=== PATIENT | female | born 1935 | race Caucasian/White ===

== ENCOUNTER 2023-06-28 14:29 | Outpatient (RCR) | payer MEDICARE, SELFPAY ==
[2023-06-28 14:44] VITALS: BP 118/66; PULSE 61; O2SAT 99; BMI 21.8
--- NOTE | 2023-06-28 15:03 | P.CNHO_ITS ---
Subjective - Subjective Chief complaint: Consult for: Macrocytic anemia. Patient: new to practice Consult date: 06/28/23 Requesting Physician: Alena Fraga. Primary Care Provider: Reva Fraga CNP Medical Summary: DIAGNOSIS: MACROCYTIC ANEMIA. HPI - Consult Narrative Reason for consult: Consult for: Macrocytic anemia. Narrative: Juliet Deras is a 87 year old lady referred by Reva Fraga on account of macrocytic anemia. CBC from 04/24/2023: Hemoglobin 10.3, HCT 34.8, MCV 105. CBC from 01/15/2023: WBC HGB 10.7, HCT 34.2. Iron studies: 78/187/26/Min 16. B12 418. Folate more than 40. PAST MEDICAL HISTORY: 87 year old female with history CAD s/p CAGBx3, htn, unspecified mood disorder admitted for acute CVA s/p tpa administation. #Acute CVA--with left sided weakness and left sided visual loss. -Initial head CT negative with abrupt cut off of proximal right M2 inferior division noted on CTA head/neck. Not interventional candidate with NIHSS score 2 per interventional neurology -Given tpa . Repeat head CT negative. MRI =??an acute cortical infarct within the vascular territory the right middle cerebral artery. Echo show no intracardiac clot. Overall symptoms much improved. Medical management with ASA, Statin and Neurology recommends 4 weeks of Plaveix. PT/OT recommends acute inpatient rehab. LDL as at goal. Overall symptoms have improved vision is better and weakness on left nearly gone #HTN--She takes Metoprolol 100 mg twice daily and HR has been between 50 to 80, and will therefore lower metoprolol to 50 bid and add Norvasc 2.5 daily #HLD -LDL at goal, continue simvastatin #Unspecified mood disorder-continue home meds (Remron, Sertraline) FAMILY HISTORY: She is an only child. No known blood disorder nor oncological problems in the family. 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 She is . She has 3 children. Denies smoking. Denies alcohol. ROS: Lately she has been fatigued. She uses the walker more for a balance. She is currently undergoing physical therapy. Rely no fever chills or night sweats. She does feel cold. Her appetite is excellent. She eats very healthy fish chicken vegetables and fruits. Denies weight loss. No headache no dizziness. No chest pain or trouble breathing. Denies any abdominal pain nausea vomiting heartburn indigestion. Bowels are working with. She has constipation. She takes Metamucil. She gets up at night the almost 4 times to go to the bathroom. She has right knee pain. She had injections in the past. 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 She is unable to walk. She has shakes. She has anxiety. Sometimes that makes her short of breath. She denies any skin rashes or pruritus. Review of Systems - Constitutional Reports system reviewed and no additional complaints, except as documented, Reports chills, Reports fatigue, Reports lack of energy, Reports malaise, Denies anorexia, Denies body ache(s), Denies fever(s), Denies night sweats, Denies poor appetite, Denies weight loss - Eyes Reports system reviewed and no additional complaints, except as documented - ENT Reports system reviewed and no additional complaints, except as documented - Cardiovascular Reports system reviewed and no additional complaints, except as documented - Respiratory Reports no additional respiratory complaints - Gastrointestinal Reports system reviewed and no additional complaints, except as documented - Genitourinary Reports no additional female genitourinary complaints - Musculoskeletal Reports system reviewed and no additional complaints, except as documented - Integumentary/Breasts Skin/Breast: Reports no additional skin complaints - Neurologic Reports system reviewed and no additional complaints, except as documented - Psychiatric Reports system reviewed and no additional complaints, except as documented - Endocrine Reports no additional endocrine complaints - Hematologic/Lymphatic Reports system reviewed and no additional complaints, except as documented - Allergic/Immunologic Reports system reviewed and no additional complaints, except as documented Oncology Screenings - ECOG Performance Status ECOG Performance Status: 2 [facility] Medical History: Medical History (Last Updated 06/28/23 @ 14:42 by Navya Ward) Coronary artery disease High cholesterol Hypertension Hypomagnesemia Osteopenia Functional capacity: wheelchair bound Patient : No Surgical History: Surgical History (Last Reviewed 06/28/23 @ 14:41 by Navya Ward) S/P CABG x 3 Social History: Social History (Last Updated 06/28/23 @ 14:42 by Navya Ward) Living Situation History: Household Members: Family Alcohol History Details: 1. How often do you have a drink containing alcohol?: a. Never Tobacco History: Patient Tobacco Use Status: Never used Tobacco Substance Use History: Use of substances other than those prescribed or required for medical reasons : No Domestic Abuse History: Do you feel safe in your current relationship?: Yes Homicidal Assessment: Do you have thoughts of harming others: None Do you have a plan to hurt others: No Plan Nutrition Assessment: Patient : No Occupation Assessmet: service: No Current occupational status: retired Home Medications and Allergies Home Medications Medication Instructions Recorded Confirmed Type aspirin 81 mg chewable tablet 81 mg PO DAILY 01/30/23 06/28/23 History bisacodyl 5 mg tablet 5 mg PO DAILY PRN Constipation 01/30/23 06/28/23 History mirtazapine 7.5 mg tablet 7.5 mg PO BID 01/30/23 06/28/23 History multivitamin 1 tab PO DAILY@1200 01/30/23 06/28/23 History sertraline 50 mg tablet 50 mg PO BID 01/30/23 01/30/23 History simvastatin 20 mg tablet 20 mg PO BEDTIME 01/30/23 06/28/23 History Allergies Allergy/AdvReac Type Severity Reaction Status Date / Time No Known Allergies Allergy Unverified 06/28/23 14:42 Physical Exam Vital signs: Vital Signs Pulse 61 06/28/23 14:44 BP 118/66 06/28/23 14:44 Pulse Ox 99 06/28/23 14:44 O2 Del Method Room Air 06/28/23 14:44 Intake & Output 06/27/23 06/28/23 06/28/23 18:59 06:59 18:59 Other: Weight 49 kg [place] Weight in Grams [id number] Weight 49 kg - Constitutional Present: mild distress - Routine HEENT Exam Head: Present: normal inspection, normocephalic Eye: Present: normal appearance ENT: Present: mucous membranes moist - Routine Neck Exam Present: supple - Routine Respiratory Exam Present: CTAB - Routine Cardiovascular Exam Cardiovascular: Present: RRR, S1, S2 - Routine Abdominal Exam Present: soft, nontender - Routine Extremities Exam Present: nontender - Routine Skin Exam Present: intact, normal turgor - Routine Neurological Exam Present: alert, oriented X3 - Detailed Neurological Exam: Coma Scale Eye Opening: Spontaneous (4) Verbal Response: Oriented (5) Motor Response: Obeys commands (6) [place] Coma Scale Total: 15 - Routine Psychiatric Exam Present: anxious Hem/Onc Consult Result - Labs CBC & Chem 7: 06/28/23 15:11 06/28/23 15:11 Assessment and Plan Patient Active problem list reviewed?: Yes (1) Macrocytic anemia Status: Acute Assessment and plan: This is a pleasant 87-year-old lady with a history of macrocytic anemia. CBC from 04/24/2023: Hemoglobin 10.3, HCT 34.8, MCV 105. CBC from 01/15/2023: WBC .0, HGB 10.7, HCT 34.2. PLT 149. Iron studies: 78/187/26/116. B12 418. Folate > 40. She actually had a bone marrow exam done 12/19/2007 which revealed: Active try linear hematopoiesis, slight increase in plasma cells and moderately decreased iron stores. Reticulin fibers are focally slightly increased. DIFFERENTIAL DIAGNOSIS: 1. Myelo infiltrative disorder: This is likely specially at her age. MDS versus multiple myeloma versus lymphoma. 2. B12/folate deficiency: Her B12 level was 418. Folate >40. 3. HYPOTHYROIDISM: That can explain the fatigue and macrocytosis. 4. ACD: Is a likely possibility. 5. HEMOLYTIC ANEMIA: Is in the differential. PLAN: I will proceed with further evaluation. Check CBC with manual diff.: WBC 5, HGB 10.7, PLT 173. Recheck B12 and folate: 461, >20. Check retic count: 1.7, Hapto 155, LDH: 180. Check LDH 180, and SIEP: pnd. I discussed the option of bone marrow exam however the patient is not too keen on that. For now will continue to monitor her blood count. If it drops can consider Procrit therapy for MDS. She will return in a couple of months for a follow-up visit. All her and her son's questions were answered to their satisfaction. Thank you, Cc: Reva Fraga. - Time Spent With Patient Time Spent with Patient (in minutes): 30
[2023-06-28 15:19] LABS: Baso%MD 0.4 %; Eos%MD 1.6 %; Hemoglobin 10.7 g/dl (12.0-16.0); IG%MD 0.6 %; Immature Retic Fraction 12.7 % (3.0-15.9); Lymph%MD 19.3 %; Mean Corpuscular HGB Conc 33.4 g/dl (31.0-35.0); Mean Corpuscular Hemoglobin 34.6 pg (27.0-33.0); Mean Corpuscular Volume 103.6 fL (80.0-98.0); Mean Platelet Volume 10.2 fL (9.4-12.3); Mono%MD 12.2 %; Neut%MD 65.9 %; Platelet Count 173 X10*3/uL (160-400); Red Blood Count 3.09 X10*6/uL (4.20-5.50); Red Cell Distribution Width 14.1 % (11.0-16.0); Retic HGB Equivalent 38.3 pg (30.0-35.0); Reticulocyte Percent 1.7 % (0.5-1.8); Reticulocytes Absolute 0.052 X10*6/uL (0.026-0.095)
[2023-06-28 15:39] LABS: Alanine Aminotransferase 11 U/L (0-31); Albumin Level 4.2 g/dL (3.5-5.0); Alkaline Phosphatase 59 U/L (39-117); Anion Gap 15 (12-20); Aspartate Amino Transferase 19 U/L (5-31); Bilirubin Total 0.3 mg/dL (0.0-1.0); Blood Urea Nitrogen 23 mg/dL (9-16); Carbon Dioxide 28 mmol/L (22-29); Chloride 103 mmol/L (96-108); Creatinine Clr Calc Pharmacy 34.9; Estimated Glomerular Filt Rate > 60; Glucose Random 108 mg/dL (60-115); Lactate Dehydrogenase 180 U/L (122-220); Sodium 142 mmol/L (135-145)
[2023-06-28 15:53] LABS: Ferritin 72 ng/mL (10-250)
[2023-06-28 15:57] LABS: Band Neutrophils Percent 0 % (3-5); Basophils Abs Manual 0.1 X10*3/uL (0.0-0.2); Basophils Percent Manual 1 % (0-2); Lymphocytes Absolute Manual 0.9 X10*3/uL (1.2-4.9); Lymphocytes Percent Manual 17 % (20-40); Monocytes Absolute Manual 0.6 X10*3/uL (0.1-1.2); Monocytes Percent Manual 11 % (2-11); Neutrophils Absolute Manual 3.6 X10*3/uL (2.0-8.3); Neutrophils Percent Manual 71 % (45-73)
[2023-06-28 16:07] LABS: Platelet Estimate NORMAL (NORMAL); Platelet Morphology Comment NORMAL; RBC Morphology NORMAL
[2023-06-28 16:08] LABS: Folate > 20.0 ng/mL (> or = 4.0); Vitamin B12 461 pg/mL (200-900)
[2023-06-29 01:49] LABS: Haptoglobin 155 MG/DL ((30-200))
[2023-07-03 15:03] LABS: IgA 296 mg/dL (70-320); IgG 886 mg/dL (600-1540); IgM 105 mg/dL (50-300)
== END 2023-08-18 | disposition home or self-care (01) ==
LOC: HO.ONC 14:29
PROVIDERS: PCP Nurse Practitioner Family; Visit Provider Internal Medicine Medical Oncology
DX: D53.9 Nutritional anemia, unspecified (principal)
CPT/HCPCS: 36415; 80053; 82607; 82728; 82746; 82784; 83010; 83615; 85007; 85027; 85045; 86334; 99214

== ENCOUNTER → 2023-06-28 14:29 | Outpatient (BNV) | payer MEDICARE, SELFPAY | PROVIDERS: PCP Nurse Practitioner Family; Visit Provider Internal Medicine Medical Oncology | DX: D64.9 Anemia, unspecified (principal) | CPT/HCPCS: 99214 ==

== ENCOUNTER 2023-08-08 14:01 | Inpatient (IN) | payer MEDICARE, SELFPAY ==
--- NOTE | ~2023-08-08 | XR_ITS ---
EXAMINATION: XR CHEST CLINICAL INFORMATION: NG tube placement COMPARISON: None available. TECHNIQUE: Frontal view of the chest was obtained. FINDINGS: The lungs are slightly hyperinflated with haziness in both lung bases likely atelectasis/effusion combination. Infiltrate is not excluded. Heart size and perivascular is normal. There is new enteric tube with the tip of the tube within the hiatal hernia adjacent to the myocardium. There are median sternotomy sutures and mediastinal grady from previous CABG. No gross bony abnormality seen. Incidental note is made of dilated small bowel loops in the upper abdomen. XR/XR chest 1V IMPRESSION: 1. New enteric tube tip is within the hiatal hernia adjacent to the myocardium. 2. Bibasilar haziness likely atelectasis/effusion combination. Infiltrate is not excluded. 3. Incidental note is made of dilated small bowel loops in the upper abdomen.
--- NOTE | ~2023-08-08 | XR_ITS ---
EXAMINATION: XR CHEST CLINICAL INFORMATION: Nasogastric tube placement COMPARISON: Previous chest x-ray from earlier the same day TECHNIQUE: Frontal view of the chest was obtained. FINDINGS: Nasogastric tube tip projects over stomach. Cardiac silhouette is slightly enlarged. Median sternotomy wires. Surgical clips project over the right lung base/inferior hilum. Lungs are clear. No pleural effusion or pneumothorax. Degenerative changes of the spine and shoulders. XR/XR chest 1V IMPRESSION: Nasogastric tube tip projects over stomach.
--- NOTE | ~2023-08-08 | XR_ITS ---
EXAMINATION: XR ABDOMEN KUB CLINICAL INDICATION: Intestinal obstruction COMPARISON: 08/09/2023 TECHNIQUE: AP view of the abdomen. FINDINGS: NG tube tip overlying the spine. Proximal port overlying the GE junction. Similar bowel pattern to previous. Some dilatation of small bowel is noted. XR/XR KUB IMPRESSION: Similar bowel pattern to previous. Some dilated small bowel is seen here. NG tube as described. The proximal port may be at the level the GE junction/distal esophagus
--- NOTE | ~2023-08-08 | CT_ITS ---
EXAMINATION: CT ABDOMEN AND PELVIS WITH CONTRAST CLINICAL INFORMATION: Pain COMPARISON: None available. TECHNIQUE: Multidetector volumetric images were obtained from the superior aspect of the liver through the pubic symphysis following administration 85 mL of Omnipaque 350 intravenous contrast. Sagittal and coronal reformatted images were obtained on the technologist's workstation. Oral contrast: Yes This CT examination was performed using dose optimization techniques as appropriate, variously including the following: *Automated exposure control *Adjustment of mA and/or kV according to patient size (this includes techniques or standardized protocols for targeted exams where dose is matched to indication/reason for exam; i.e. extremities or head) *Use of iterative reconstruction technique DLP: 408 mGy-cm FINDINGS: LUNG BASES: The visualized lung bases are clear. Aortic valve coronary artery calcification. LIVER, GALLBLADDER, AND BILIARY TREE: The liver is normal in size, shape, and attenuation. No focal hepatic lesion or biliary ductal dilatation is present. Gallstones in the gallbladder. The gallbladder is otherwise unremarkable. PANCREAS: Unremarkable. SPLEEN: Too small low-attenuation splenic lesions probably representing small cyst and hemangioma. ADRENAL GLANDS: Unremarkable. KIDNEYS AND URETERS: The kidneys are normal in size, shape, and attenuation. No hydronephrosis, hydroureter, or calculi seen. Bilateral renal cysts. No imaging follow-up recommended. No perinephric stranding. BLADDER: Not optimally distended. Difficult to exclude mild diffuse bladder wall thickening GASTROINTESTINAL TRACT: The small bowel is dilated and fluid-filled. There are abnormal loops of distal small bowel seen in the right lower quadrant with wall thickening and wall edema, for example 56 series 3. There is a small amount of ascites. There is severe diverticular disease of the colon. No evidence of diverticulitis. No free air. The stomach is slightly distended and filled. Appendix not seen. ABDOMINAL WALL: Small right groin hernia containing fluid LYMPH NODES: Normal. VASCULAR: Atherosclerotic disease. PELVIC VISCERA: Unremarkable. OSSEOUS STRUCTURES: Scoliosis and degenerative changes of the spine and hip joints. CT/CT abdomen pelvis w IV con IMPRESSION: Abnormal small bowel. Question enteritis versus distal small bowel obstruction. Small amount of ascites. Diverticular disease of the colon. No evidence of diverticulitis. Gallstones. Small right groin hernia containing fluid. Question mild diffuse bladder wall thickening. Correlate for urinary tract infection/cystitis. Fleischner guidelines were followed.
--- NOTE | ~2023-08-08 | XR_ITS ---
EXAMINATION: XR CHEST CLINICAL INFORMATION: Nasogastric tube placement COMPARISON: Previous abdominal and pelvic CT from earlier the same day TECHNIQUE: Frontal view of the chest was obtained. FINDINGS: There is a nasogastric tube with tip projecting over the right lung base and not in the esophagus or stomach. Subsequent chest x-ray demonstrates nasogastric tube position tip projecting over the stomach. Surgical clips project over the right pulmonary hilum/right lung base. The cardiac silhouette is upper normal in size. There are median sternotomy wires. The lungs are clear. No pleural effusion or pneumothorax. No acute bone abnormality. XR/XR chest 1V IMPRESSION: Abnormally positioned nasogastric tube with tip projecting over the right lung base.
--- NOTE | ~2023-08-08 | XR_ITS ---
EXAMINATION: XR ABDOMEN KUB CLINICAL INFORMATION: Question SBO. COMPARISON: CT abdomen of August 08, 2023. TECHNIQUE: AP view of the abdomen. FINDINGS: Enteric catheter is seen traversing to the stomach with the sideport at the gastroesophageal junction region. There is gaseous distention of the stomach. Stool and gas are seen within portions of a nondilated colon. There appear to be a few distended but not dilated loops of small bowel about the mid right abdomen. Columnization of the left ureter is present along its distal half. The urinary bladder has a trabeculated wall with contrast within it. A tube is seen overlying the rectum and may represent a rectal tube. There is degenerative change of the right hip. There is mild scoliosis of the lower lumbar spine convex left. There is disc space narrowing and facet arthropathy seen at L4 through S1. Prominent vascular calcifications are noted. XR/XR KUB IMPRESSION: No specific signs to suggest small bowel obstruction. Stool and gas seen within nondilated colon. Trabeculated urinary bladder wall with columnization of the distal left ureter.
--- NOTE | ~2023-08-08 | CT_ITS ---
EXAMINATION: CT ABDOMEN AND PELVIS WITH CONTRAST CLINICAL INFORMATION: Small bowel obstruction. Follow-up. COMPARISON: Previous CT of the abdomen and pelvis 08/08/2023 and KUB most recent 08/10/2023 TECHNIQUE: Multidetector volumetric images were obtained from the superior aspect of the liver through the pubic symphysis following administration 85 mL of Omnipaque 350 intravenous contrast. Sagittal and coronal reformatted images were obtained on the technologist's workstation. Oral contrast: Yes This CT examination was performed using dose optimization techniques as appropriate, variously including the following: *Automated exposure control *Adjustment of mA and/or kV according to patient size (this includes techniques or standardized protocols for targeted exams where dose is matched to indication/reason for exam; i.e. extremities or head) *Use of iterative reconstruction technique DLP: 407 mGy-cm FINDINGS: LUNG BASES: New bilateral pleural effusions and lower lobe compressive atelectasis, right greater than left. Enlarged heart. Coronary artery and aortic valve calcification. Median sternotomy wires. LIVER, GALLBLADDER, AND BILIARY TREE: The liver is low in attenuation suggestive of mild fatty infiltration. No focal liver lesion or biliary duct dilatation. Upper normal-size gallbladder and gallstones. PANCREAS: Unremarkable. SPLEEN: Stable small low-attenuation lesions probably representing a small geode. ADRENAL GLANDS: Unremarkable. KIDNEYS AND URETERS: The kidneys are normal in size, shape, and attenuation. No hydronephrosis, hydroureter, or calculi seen. Right renal cyst. No imaging follow-up recommended No perinephric stranding. BLADDER: Unremarkable. GASTROINTESTINAL TRACT: Very dilated fluid-filled loops of small bowel. Small bowel loops measure up to 4 cm in diameter or dilated on prior exams. The distal small bowel does not appear dilated. Definite transition zone is not seen. Question transition zone right lower quadrant sagittal reconstructed image 29 series 3. Appearance is worrisome small bowel obstruction. There is a small amount of ascites. Severe diverticulosis of the distal colon. No evidence of diverticulitis. Small esophageal hernia. The appendix ABDOMINAL WALL: Small right groin hernia containing fluid. LYMPH NODES: Normal. VASCULAR: Atherosclerotic disease. No aneurysm PELVIC VISCERA: Unremarkable. OSSEOUS STRUCTURES: Degenerative changes of the spine and scoliosis. Degenerative changes at the hip joints, right greater than left. CT/CT abdomen pelvis w IV con IMPRESSION: Dilated fluid-filled small bowel more dilated than July 2023 worrisome for small bowel obstruction. Question transition point the right lower quadrant. Distal small bowel does not appear dilated. New small amount of ascites. Small esophageal hernia. Gallstones and upper normal-size gallbladder. Bilateral pleural effusions and adjacent lower lobe compressive atelectasis. Fleischner guidelines were followed. Findings will be communicated by the [facility] chief crew scheduler
--- NOTE | 2023-08-08 14:22 | ECG_ITS ---
Test Reason : abdominal pain Blood Pressure : / mmHG Vent. Rate : 063 BPM Atrial Rate : 063 BPM P-R Int : 168 ms QRS Dur : 086 ms QT Int : 438 ms P-R-T Axes : 079 038 069 degrees QTc Int : 448 ms Normal sinus rhythm Normal ECG When compared with ECG of 30-JAN-2023 00:27, No significant change was found Referred By: Gurdeep Gentile Electronically Signed By:NOMAN CARRASCO MD
--- NOTE | 2023-08-08 14:23 | ED.GENADULT ---
HPI - General Adult General Chief complaint: Abdominal Pain Stated complaint: ABD PAIN Time Seen by Provider: 08/08/23 14:14 History of Present Illness HPI narrative: The patient is an 87-year-old woman lives at home with her son. She is here for abdominal pain it started abruptly at 10:00 this morning. She had felt fine earlier in the morning. She had had breakfast earlier in the morning. She has had pain started abruptly and was quite generalized. It was quite uncomfortable. She has had no associated nausea. No definite fever. She says that the pain feels like pain she experienced several decades ago when she had an ectopic . She says she had surgery for her ectopic several decades ago but has had no other abdominal surgeries. She has had triple bypass surgery. She does not feel the pain lateralizes to either side. 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 She was seen here at this hospital and was treated with tPA. She had significant improvement in her symptoms. She was started on clopidogrel at discharge. Related Data Home Medications Medication Instructions Recorded Confirmed aspirin 81 mg chewable tablet 81 mg PO DAILY 01/30/23 06/28/23 bisacodyl 5 mg tablet 5 mg PO DAILY PRN Constipation 01/30/23 06/28/23 mirtazapine 7.5 mg tablet 7.5 mg PO BID 01/30/23 08/08/23 multivitamin 1 tab PO DAILY@1200 01/30/23 06/28/23 sertraline 50 mg tablet 50 mg PO BID 01/30/23 08/08/23 simvastatin 20 mg tablet 20 mg PO BEDTIME 01/30/23 08/08/23 amlodipine 2.5 mg tablet (Norvasc) 5 mg PO DAILY 08/08/23 08/08/23 Previous Rx's Medication Instructions Recorded clopidogrel 75 mg tablet (Plavix) 75 mg PO DAILY #30 tabs 02/02/23 metoprolol tartrate 50 mg tablet 50 mg PO BID #60 tabs 02/02/23 Allergies Allergy/AdvReac Type Severity Reaction Status Date / Time No Known Allergies Allergy Unverified 06/28/23 14:42 Review of Systems Review of Systems: Yes all other systems are reviewed and are negative FOR[facility]LY [facility] Past Medical History Medical History High cholesterol Osteopenia Hypomagnesemia Coronary artery disease Hypertension Surgical History S/P CABG x 3 Social History Social History Household Members: Family Alcohol intake: never Patient Tobacco Use Status: Never used Tobacco Smoked in Last 30 Days: No Use of substances other than those prescribed or required for medical reasons: No Advance Directives: Yes Advance Directives on File: Yes Advance Directives Date on File: 02/06/23 service: No Current occupational status: retired Physical Exam ED Vital Signs: Vital Signs - 24 hr 08/08/23 14:42 08/08/23 15:04 08/08/23 16:00 Temperature Pulse Rate 64 65 68 Respiratory Rate 20 16 18 Blood Pressure 186/93 H 183/83 H 167/86 H Pulse Oximetry 99 98 98 Oxygen Delivery Method Room Air Room Air Room Air 08/08/23 19:18 Temperature 98.0 F Pulse Rate 67 Respiratory Rate 18 Blood Pressure 176/87 H Pulse Oximetry 94 Oxygen Delivery Method Room Air BMI result Body Mass Index 20.5 Const Other: Patient is awake, alert, pleasant, cooperative. She does not appear in obvious distress. Mental status is clear. HENMT Other: Appearance of the face is unremarkable. Mucous membranes are moist. Eyes Other: Pupils are round equal, conjunctivae are clear Neck Other: No JVD Cardio Other: Regular rate and rhythm, 4/6 murmur GI Other: The patient is diffusely tender, no clear focal tenderness. Medications Administered Discontinued Medications Generic Name Dose Route Start Last Admin Trade Name Maria Guadalupe PRN Reason Stop Dose Admin Iohexol 100 ml 08/08/23 19:01 08/08/23 19:01 Iohexol 350 Mg/Ml 100 Ml Infus..Btl IV 08/08/23 19:02 85 ml ONCE ONE Administration Lidocaine HCl 10 ml 08/08/23 19:07 08/08/23 20:04 Lidocaine Hcl 2 % Urojet 10 Ml Jel.Pf.Magda TOPICAL 08/08/23 19:08 10 ml ONCE ONE Administration Lidocaine HCl 10 ml 08/08/23 20:37 08/08/23 20:44 Lidocaine Hcl 2 % Urojet 10 Ml Jel.Pf.Magda TOPICAL 11/29/23 20:38 10 ml ONCE ONE Administration Morphine Sulfate 2 mg 08/08/23 14:40 08/08/23 15:12 Morphine Sulfate 2 Mg/Ml Cartridge IVPUSH 08/08/23 14:41 2 mg ONCE ONE Administration Protocol Morphine Sulfate 2 mg 08/08/23 17:25 08/08/23 17:39 Morphine Sulfate 2 Mg/Ml Cartridge IVPUSH 08/08/23 17:26 2 mg ONCE ONE Administration Protocol Morphine Sulfate 4 mg 08/08/23 19:07 08/08/23 20:04 Morphine Sulfate 4 Mg/Ml Cartridge IVPUSH 08/08/23 19:08 4 mg ONCE ONE Administration Protocol Medical Decision Making Medical Decision Making MDM Narrative: 87-year-old woman on clopidogrel presents with abrupt onset abdominal pain starting around 10:00 this morning. Abdominal exam shows diffuse abdominal tenderness without clear localization. EKG is unremarkable. Labs were done. Her labs are unremarkable but her CT scan was delayed by 2 rounds of hemolyzed chemistry labs. Ultimately she had a CT of the abdomen and pelvis that showed fluid-filled loops of small bowel with air-fluid levels. The radiology impression was ?abnormal small bowel. Question enteritis versus distal small bowel obstruction. ? My impression was that the patient had a small bowel obstruction. I ordered an NG tube. And initially in G-tube was placed with a subsequent chest x-ray that did not show appropriate tube placement. This was immediately identified by the x-ray techs. I pulled the NG tube. I then placed a 16 [place] NG tube in the patient's left nostril myself with an x-ray that showed appropriate placement of the NG tube and good drainage of gastric contents. I discussed the case with the on-call surgeon Dr. Diego Plaza who recommended that the patient has small-bowel obstruction be initially treated with conservative measures including NG tube decompression and IV fluids. He recommended admission to the hospitalist service. I contacted the hospitalist and the patient was admitted. The patient seemed to be feeling much better after she had had some evacuation of gastric contents via the NG tube. I called patient's son to update him on the patient's condition. He spoke to his mother on the phone. Lab Data 08/08/23 14:57 08/08/23 18:05 Labs: Lab Results 08/08/23 08/08/23 08/08/23 Range/Units 14:57 15:01 15:06 WBC 6.2 (4.8-10.8) X10*3/uL RBC 3.62 L (4.20-5.50) X10*6/uL Hgb 12.1 (12.0-16.0) g/dl Hct 36.7 L (37.0-47.0) % MCV 101.4 H (80.0-98.0) fL MCH 33.4 H (27.0-33.0) pg MCHC 33.0 (31.0-35.0) g/dl RDW 13.8 (11.0-16.0) % Plt Count 211 (160-400) X10*3/uL MPV 9.9 (9.4-12.3) fL Immature Gran % (Auto) 0.3 (0.0-0.4) % Neut % (Auto) 72.3 (45-73) % Lymph % (Auto) 17.1 L (20-40) % [place] % (Auto) 8.7 (2-11) % Eos % (Auto) 1.1 (0-4) % Baso % (Auto) 0.5 (0-2) % Lymph # (Auto) 1.1 L (1.2-4.9) X10*3/uL [place] # (Auto) 0.5 (0.1-1.2) X10*3/uL Eos # (Auto) 0.1 (0.0-0.4) X10*3/uL Baso # (Auto) 0.0 (0.0-0.2) X10*3/uL Abs Immat Gran (auto) 0.02 (0.00-0.03) X10*3/uL Absolute Neuts (auto) 4.5 (2.0-8.3) x10*3/uL Absolute Nucleated RBC 0.000 (0.0-0.012) X10*3/uL Nucleated RBC % (auto) 0.0 (0.0-0.2) /100WBC VBG pH 7.48 H (7.32-7.43) VBG pCO2 48 mmHg VBG pO2 42 mmHg VBG HCO3 36 H (22-26) mmol/L VBG O2 Saturation 68.0 % VBG Base Excess 11.3 mmol/L Sodium (135-145) mmol/L Potassium (3.3-5.1) mmol/L Chloride (96-108) mmol/L Carbon Dioxide (22-29) mmol/L Anion Gap (12-20) BUN (9-16) mg/dL Creatinine (0.5-1.4) mg/dL Estim Creat Clear Calc Estimated GFR Random Glucose (60-115) mg/dL Lactic Acid 0.9 (0.5-2.0) mmol/L Calcium (8.4-10.2) mg/dL Magnesium (1.6-2.6) mg/dL Total Bilirubin (0.0-1.0) mg/dL Direct Bilirubin (0.0-0.5) mg/dL AST (5-31) U/L ALT (0-31) U/L Alkaline Phosphatase (39-117) U/L Troponin I High Sens 5.9 D (<3.5-17.0) ng/L C-Reactive Protein (< or = 0.50) mg/dL Total Protein (6.5-8.0) g/dL Albumin (3.5-5.0) g/dL Lipase (8-78) U/L Urine Color Yellow Urine Appearance Clear Urine pH 8.5 (5.0-9.0) Ur Specific [place] 1.015 (1.005-1.025) Urine Protein Negative (Neg-Trace) mg/dL Urine Glucose (UA) Negative (Negative) mg/dL Urine Ketones Negative (Negative) mg/dL Urine Blood Negative (Negative) Urine Nitrite Negative (Negative) Ur Leukocyte Esterase Negative (Negative) 08/08/23 Range/Units 18:05 WBC (4.8-10.8) X10*3/uL RBC (4.20-5.50) X10*6/uL Hgb (12.0-16.0) g/dl Hct (37.0-47.0) % MCV (80.0-98.0) fL MCH (27.0-33.0) pg MCHC (31.0-35.0) g/dl RDW (11.0-16.0) % Plt Count (160-400) X10*3/uL MPV (9.4-12.3) fL Immature Gran % (Auto) (0.0-0.4) % Neut % (Auto) (45-73) % Lymph % (Auto) (20-40) % [place] % (Auto) (2-11) % Eos % (Auto) (0-4) % Baso % (Auto) (0-2) % Lymph # (Auto) (1.2-4.9) X10*3/uL [place] # (Auto) (0.1-1.2) X10*3/uL Eos # (Auto) (0.0-0.4) X10*3/uL Baso # (Auto) (0.0-0.2) X10*3/uL Abs Immat Gran (auto) (0.00-0.03) X10*3/uL Absolute Neuts (auto) (2.0-8.3) x10*3/uL Absolute Nucleated RBC (0.0-0.012) X10*3/uL Nucleated RBC % (auto) (0.0-0.2) /100WBC VBG pH (7.32-7.43) VBG pCO2 mmHg VBG pO2 mmHg VBG HCO3 (22-26) mmol/L VBG O2 Saturation % VBG Base Excess mmol/L Sodium 141 (135-145) mmol/L Potassium 4.5 (3.3-5.1) mmol/L Chloride 100 (96-108) mmol/L Carbon Dioxide 33 H (22-29) mmol/L Anion Gap 13 (12-20) BUN 19 H (9-16) mg/dL Creatinine 0.80 (0.5-1.4) mg/dL Estim Creat Clear Calc 40.2 Estimated GFR > 60 Random Glucose 103 (60-115) mg/dL Lactic Acid (0.5-2.0) mmol/L Calcium 10.3 H (8.4-10.2) mg/dL Magnesium 2.2 (1.6-2.6) mg/dL Total Bilirubin 0.5 (0.0-1.0) mg/dL Direct Bilirubin 0.1 (0.0-0.5) mg/dL AST 26 (5-31) U/L ALT 14 (0-31) U/L Alkaline Phosphatase 65 (39-117) U/L Troponin I High Sens 8.3 (<3.5-17.0) ng/L C-Reactive Protein < 0.04 (< or = 0.50) mg/dL Total Protein 7.5 (6.5-8.0) g/dL Albumin 4.1 (3.5-5.0) g/dL Lipase 24 (8-78) U/L Urine Color Urine Appearance Urine pH (5.0-9.0) Ur Specific [place] (1.005-1.025) Urine Protein (Neg-Trace) mg/dL Urine Glucose (UA) (Negative) mg/dL Urine Ketones (Negative) mg/dL Urine Blood (Negative) Urine Nitrite (Negative) Ur Leukocyte Esterase (Negative) Independent Interpretation I performed an independent interpretation of an: EKG Interpretation: EKG at 15:02 shows normal sinus rhythm at 63 beats per minute. Unremarkable EKG. Discharge Plan Discharge Clinical Impression: SBO (small bowel obstruction) Patient Disposition: Admitted As Inpatient
[2023-08-08 14:37] VITALS: BP 197/98; PULSE 80; O2SAT 98
[2023-08-08 14:42] VITALS: BP 186/93; PULSE 64; RESP 20; O2SAT 99; BMI 20.5
[2023-08-08 15:04] VITALS: BP 183/83; PULSE 65; RESP 16; O2SAT 98
[2023-08-08 15:07] LABS: MANUAL DIFF FLAG NO
[2023-08-08 15:11] LABS: Appearance Urine Clear; Color Urine Yellow; Glucose Urine UA Negative (Negative); Leukocyte Esterase Urine Negative (Negative); Nitrite Urine Negative (Negative); PH 8.5 (5.0-9.0); Specific Gravity - Urine 1.015 (1.005-1.025); Urine Blood Negative (Negative); Urine Ketones Negative (Negative); Urine Protein Negative (Neg-Trace)
[2023-08-08 15:11] LABS: VBG Base Excess 11.3 mmol/L; VBG HCO3 36 mmol/L (22-26); VBG pCO2 48 mmHg; VBG pH 7.48 (7.32-7.43); VBG pO2 42 mmHg
[2023-08-08] MEDS: Morphine Sulfate 2 MG/ML CARTRIDGE IVPUSH ×2 (15:12→17:39)
[2023-08-08 15:14] LABS: Venous Blood Gas Refer to POC result
[2023-08-08 15:16] LABS: Basophils Percent Auto 0.5 % (0-2); Eosinophils Absolute Auto 0.1 X10*3/uL (0.0-0.4); Eosinophils Percent Auto 1.1 % (0-4); Hematocrit 36.7 % (37.0-47.0); Hemoglobin 12.1 g/dl (12.0-16.0); Imm Gran Abs Auto 0.02 X10*3/uL (0.00-0.03); Imm Gran Pct Auto 0.3 % (0.0-0.4); Lymphocytes Absolute Auto 1.1 X10*3/uL (1.2-4.9); Lymphocytes Percent Auto 17.1 % (20-40); Mean Corpuscular Hemoglobin 33.4 pg (27.0-33.0); Mean Corpuscular Volume 101.4 fL (80.0-98.0); Mean Platelet Volume 9.9 fL (9.4-12.3); Monocytes Absolute Auto 0.5 X10*3/uL (0.1-1.2); Monocytes Percent Auto 8.7 % (2-11); Neutrophils Absolute Auto 4.5 x10*3/uL (2.0-8.3); Neutrophils Percent Auto 72.3 % (45-73); Platelet Count 211 X10*3/uL (160-400); Red Blood Count 3.62 X10*6/uL (4.20-5.50); Red Cell Distribution Width 13.8 % (11.0-16.0); White Blood Count 6.2 X10*3/uL (4.8-10.8)
[2023-08-08 15:27] LABS: Lactic Acid 0.9 mmol/L (0.5-2.0)
[2023-08-08 15:41] LABS: Troponin-I High Sensitivity 5.9 ng/L (<3.5-17.0)
[2023-08-08 16:00] VITALS: BP 167/86; PULSE 68; RESP 18; O2SAT 98
[2023-08-08 18:35] LABS: Alanine Aminotransferase 14 U/L (0-31); Albumin Level 4.1 g/dL (3.5-5.0); Alkaline Phosphatase 65 U/L (39-117); Anion Gap 13 (12-20); Aspartate Amino Transferase 26 U/L (5-31); Bilirubin Direct 0.1 mg/dL (0.0-0.5); Bilirubin Total 0.5 mg/dL (0.0-1.0); Blood Urea Nitrogen 19 mg/dL (9-16); C Reactive Protein < 0.04 mg/dL (< or = 0.50); Calcium 10.3 mg/dL (8.4-10.2); Carbon Dioxide 33 mmol/L (22-29); Chloride 100 mmol/L (96-108); Creatinine Clr Calc Pharmacy 40.2; Estimated Glomerular Filt Rate > 60; Glucose Random 103 mg/dL (60-115); Lipase 24 U/L (8-78); Magnesium 2.2 mg/dL (1.6-2.6); Potassium 4.5 mmol/L (3.3-5.1); Sodium 141 mmol/L (135-145); Total Protein 7.5 g/dL (6.5-8.0)
[2023-08-08] MEDS: iohexoL 350 MG/ML 100 ML INFUS..BTL IV (19:01)
[2023-08-08 19:15] LABS: Troponin-I High Sensitivity 8.3 ng/L (<3.5-17.0)
[2023-08-08 19:18] VITALS: BP 176/87; PULSE 67; RESP 18; TEMP 36.7; O2SAT 94
[2023-08-08] MEDS: Morphine Sulfate 4 MG/ML CARTRIDGE IVPUSH (20:04)
[2023-08-08] MEDS: Lidocaine HCl 2 % Urojet 10 ML JEL.PF.APP TOPICAL ×2 (20:04→20:44)
--- NOTE | 2023-08-08 20:14 | PC.NURSE ---
this rn and Yue RN placed 14F NG tube at this time, pt tolerated well. chest x ray ordered for placement confirmation.
--- NOTE | 2023-08-08 21:36 | PC.NURSE ---
provider and xray confirmed NG tube placement. per provider verbal order, suction set at 60mmhg at this time, pt has drained 200ml of brown fluid.
--- NOTE | 2023-08-08 22:35 | P.HPHOSP_ITS ---
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 presented with abd pain for one day. patient was feeling well AM of admission, after breakfast started to have severe abd pain. denies nausea or vomiting, in ED CT showed SBO vs enteritis. NGT placed with significant relief. Review of Systems 2 Review of Systems: Yes all other systems are reviewed and are negative [facility], [facility] Medical History High cholesterol Osteopenia Hypomagnesemia Coronary artery disease Hypertension Surgical History S/P CABG x 3 Social History Household Members: Family Alcohol intake: never Patient Tobacco Use Status: Never used Tobacco Smoked in Last 30 Days: No Use of substances other than those prescribed or required for medical reasons: No Advance Directives: Yes Advance Directives on File: Yes Advance Directives Date on File: 02/06/23 service: No Current occupational status: retired Meds Allergies Allergy/AdvReac Type Severity Reaction Status Date / Time No Known Allergies Allergy Unverified 06/28/23 14:42 Active Medications: Current Medications Amlodipine Besylate (Amlodipine Besylate 5 Mg Tablet) 5 mg PO DAILY MARY JO; Protocol Atorvastatin Calcium (Atorvastatin Calcium 10 Mg Tablet) 10 mg PO BEDTIME [facility] Enoxaparin Sodium (Enoxaparin Sodium 40 Mg/0.4 Ml Syringe) 40 mg SUBCUT Q24H [facility] Sodium Chloride (Sodium Chloride 0.45 %) 1,000 mls @ 80 mls/hr IVCONT .[id number] [facility] Sodium Chloride (Ns) 1,000 mls @ 999 mls/hr IV .Q1H1M [facility] Stop: 08/08/23 23:30 Metoprolol Tartrate (Metoprolol Tartrate 50 Mg Tablet) 50 mg PO BID MARY JO; Protocol Sertraline HCl (Sertraline Hcl 50 Mg Tablet) 50 mg PO BID [facility] Sodium Chloride (0.9 % Sodium Chloride Flush 3 Ml Syringe) 3 ml IVFLUSH QSHIFT [facility] Home Medications Medication Instructions Recorded Confirmed Last Taken Type aspirin 81 mg chewable tablet 81 mg PO DAILY 01/30/23 06/28/23 01/29/23 History bisacodyl 5 mg tablet 5 mg PO DAILY PRN Constipation 01/30/23 06/28/23 Unknown History mirtazapine 7.5 mg tablet 7.5 mg PO BID 01/30/23 08/08/23 01/29/23 History multivitamin 1 tab PO DAILY@1200 01/30/23 06/28/23 01/28/23 History sertraline 50 mg tablet 50 mg PO BID 01/30/23 08/08/23 01/29/23 History simvastatin 20 mg tablet 20 mg PO BEDTIME 01/30/23 08/08/23 01/28/23 History amlodipine 2.5 mg tablet (Norvasc) 5 mg PO DAILY 08/08/23 08/08/23 Unknown History Physical Exam 2 Vital Signs and Narrative: Vital Signs: Last Vital Signs Temp 98.0 F 08/08/23 19:18 Pulse 67 08/08/23 19:18 Resp 18 08/08/23 19:18 BP 176/87 H 08/08/23 19:18 Pulse Ox 94 08/08/23 19:18 O2 Del Method Room Air 08/08/23 19:18 BMI result Body Mass Index 20.5 General: AO X 3, no acute distress Resp: CTA bilateral, no accessory muscles used CVS: S1,S2,RRR, murmur GI: soft, non tender, non distended, ngt in place with output Neuro: motor grossly intact, alert Psych: appropriate affect, appropriate insight Results Labs 08/08/23 14:57 08/08/23 18:05 Labs: Laboratory Results - last 24 hr 08/08/23 08/08/23 08/08/23 14:57 15:01 15:06 MCV 101.4 H MCH 33.4 H MCHC 33.0 RDW 13.8 Plt Count 211 MPV 9.9 Immature Gran % (Auto) 0.3 Neut % (Auto) 72.3 Lymph % (Auto) 17.1 L [place] % (Auto) 8.7 Eos % (Auto) 1.1 Baso % (Auto) 0.5 Lymph # (Auto) 1.1 L [place] # (Auto) 0.5 Eos # (Auto) 0.1 Baso # (Auto) 0.0 Abs Immat Gran (auto) 0.02 Absolute Neuts (auto) 4.5 Absolute Nucleated RBC 0.000 Nucleated RBC % (auto) 0.0 VBG pH 7.48 H VBG pCO2 48 VBG pO2 42 VBG HCO3 36 H VBG O2 Saturation 68.0 VBG Base Excess 11.3 Anion Gap Estim Creat Clear Calc Estimated GFR Random Glucose Lactic Acid 0.9 Calcium Magnesium Total Bilirubin Direct Bilirubin AST ALT Alkaline Phosphatase C-Reactive Protein Total Protein Albumin Lipase Urine Color Yellow Urine Appearance Clear Urine pH 8.5 Ur Specific [place] 1.015 Urine Protein Negative Urine Glucose (UA) Negative Urine Ketones Negative Urine Blood Negative Urine Nitrite Negative Ur Leukocyte Esterase Negative 08/08/23 18:05 MCV MCH MCHC RDW Plt Count MPV Immature Gran % (Auto) Neut % (Auto) Lymph % (Auto) [place] % (Auto) Eos % (Auto) Baso % (Auto) Lymph # (Auto) [place] # (Auto) Eos # (Auto) Baso # (Auto) Abs Immat Gran (auto) Absolute Neuts (auto) Absolute Nucleated RBC Nucleated RBC % (auto) VBG pH VBG pCO2 VBG pO2 VBG HCO3 VBG O2 Saturation VBG Base Excess Anion Gap 13 Estim Creat Clear Calc 40.2 Estimated GFR > 60 Random Glucose 103 Lactic Acid Calcium 10.3 H Magnesium 2.2 Total Bilirubin 0.5 Direct Bilirubin 0.1 AST 26 ALT 14 Alkaline Phosphatase 65 C-Reactive Protein < 0.04 Total Protein 7.5 Albumin 4.1 Lipase 24 Urine Color Urine Appearance Urine pH Ur Specific [place] Urine Protein Urine Glucose (UA) Urine Ketones Urine Blood Urine Nitrite Ur Leukocyte Esterase Imaging Radiologist's Impressions: Impressions Abdomen/Pelvis CT 08/08/23 19:03 IMPRESSION: Abnormal small bowel. Question enteritis versus distal small bowel obstruction. Small amount of ascites. Diverticular disease of the colon. No evidence of diverticulitis. Gallstones. Small right groin hernia containing fluid. Question mild diffuse bladder wall thickening. Correlate for urinary tract infection/cystitis. Fleischner guidelines were followed. Chest X-Ray 08/08/23 20:20 IMPRESSION: Abnormally positioned nasogastric tube with tip projecting over the right lung base. Chest X-Ray 08/08/23 21:22 IMPRESSION: Nasogastric tube tip projects over stomach. 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 Quality Stroke Does the patient have a stroke diagnosis?: No VTE Prior VTE?: No VTE Risk Level:: Medical - moderate - high VTE Device Contraindication: Treatment Not Indicated VTE Drug Contraindication: N/A - Med Ordered
[2023-08-08] MEDS: 0.9 % Sodium Chloride 1,000 ML 999 ML IV (23:42)
--- NOTE | 2023-08-08 23:44 | PC.NURSE ---
delay in fluid administration due to pt only having one IV access.
[2023-08-09] MEDS: Sodium Chloride 0.45 % 1,000 ML 80 ML IVCONT ×2 (01:01→11:28)
--- NOTE | 2023-08-09 01:14 | PC.NURSE ---
pt repositioned and changed in bed at this time.
[2023-08-09 01:27] VITALS: BP 161/83; PULSE 70; RESP 17; TEMP 37.9; O2SAT 90
--- NOTE | 2023-08-09 02:03 | PC.NURSE ---
report written, floor notified of pt arrival.
[2023-08-09 02:16] VITALS: BP 141/90; PULSE 73; RESP 18; TEMP 36.9; O2SAT 94
[2023-08-09 02:53] VITALS: BMI 19.7
[2023-08-09 03:19] VITALS: BP 141/90; PULSE 73; RESP 18; TEMP 36.9; O2SAT 94
[2023-08-09] MEDS: ondansetron HCL 4 MG/2 ML VIAL IVPUSH ×3 (03:42→19:50)
[2023-08-09] MEDS: Morphine Sulfate 2 MG/ML CARTRIDGE IVPUSH ×3 (03:43→11:22)
[2023-08-09 06:21] LABS: Hematocrit 37.9 % (37.0-47.0); Hemoglobin 12.7 g/dl (12.0-16.0); Mean Corpuscular HGB Conc 33.5 g/dl (31.0-35.0); Mean Corpuscular Hemoglobin 33.8 pg (27.0-33.0); Mean Corpuscular Volume 100.8 fL (80.0-98.0); Mean Platelet Volume 9.6 fL (9.4-12.3); Platelet Count 215 X10*3/uL (160-400); Red Blood Count 3.76 X10*6/uL (4.20-5.50); Red Cell Distribution Width 13.9 % (11.0-16.0)
[2023-08-09 06:22] LABS: Anion Gap 16 (12-20); Blood Urea Nitrogen 18 mg/dL (9-16); Calcium 9.7 mg/dL (8.4-10.2); Carbon Dioxide 27 mmol/L (22-29); Chloride 101 mmol/L (96-108); Creatinine Clr Calc Pharmacy 39.1; Estimated Glomerular Filt Rate > 60; Glucose Fasting 156 mg/dL (60-99); Sodium 140 mmol/L (135-145)
[2023-08-09 07:18] VITALS: BP 168/87; PULSE 76; RESP 16; TEMP 36.6; O2SAT 94
--- NOTE | 2023-08-09 07:19 | PHA.MEDREC ---
Pharmacy Consult ? Medication Reconciliation Pharmacy has completed the medication reconciliation.
[2023-08-09] MEDS: Enoxaparin Sodium 40 MG/0.4 ML SYRINGE SUBCUT (08:01)
[2023-08-09] MEDS: amLODIPine Besylate 5 MG TABLET PO (08:02)
[2023-08-09] MEDS: Metoprolol Tartrate 50 MG TABLET PO ×2 (08:02→19:46)
[2023-08-09] MEDS: Sertraline HCL 50 MG TABLET PO ×2 (08:02→19:46)
--- NOTE | 2023-08-09 08:39 | PM.CNGS ---
History of Present Illness Consult details Consult date: 08/09/23 Narrative: 87-year-old female admitted last night for abdominal pain. She says that this started today morning. She had a good breakfast. She did not have any problems prior to that. The pain had persisted so she came to the emergency room last night. She has a history of abdominal surgery for tubal ligation in the remote past. Currently, she she does not have significant abdominal pain but feels nauseous. She had an NG tube placed last night in the emergency room. 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 She says that she does not recall when she last passed flatus. She had a bowel movement the day before yesterday. Review of Systems Constitutional: Constitutional: Denies chills and Denies fever(s) Cardiovascular: Cardiovascular: Denies chest pain Respiratory: Respiratory: Denies cough Gastrointestinal: Gastrointestinal: Reports abdominal pain and Denies hematochezia Genitourinary: Genitourinary: Denies difficulty voiding Musculoskeletal: Musculoskeletal: Reports myalgias Neurologic: Comments: History of right MCA stroke [facility] Past Medical History Medical History High cholesterol Osteopenia Hypomagnesemia Coronary artery disease Hypertension Surgical History Surgical History S/P CABG x 3 Social History Social History Household Members: Children Housing: House Do you presently have visiting nurse or other home services: Yes Alcohol intake: never Patient Tobacco Use Status: Never used Tobacco Advance Directives Date on File: 02/06/23 service: No Current occupational status: retired [employer] Allergies Allergy/AdvReac Type Severity Reaction Status Date / Time No Known Allergies Allergy Unverified 06/28/23 14:42 Active Medications: Current Medications Amlodipine Besylate (Amlodipine Besylate 5 Mg Tablet) 5 mg PO DAILY [facility]; Protocol Last Admin: 08/09/23 08:02 Dose: 5 mg Atorvastatin Calcium (Atorvastatin Calcium 10 Mg Tablet) 10 mg PO BEDTIME [facility] Enoxaparin Sodium (Enoxaparin Sodium 40 Mg/0.4 Ml Syringe) 40 mg SUBCUT Q24H [facility] Last Admin: 08/09/23 08:01 Dose: 40 mg Sodium Chloride (Sodium Chloride 0.45 %) 1,000 mls @ 80 mls/hr IVCONT .[id number] [facility] Last Admin: 08/09/23 01:01 Dose: 80 mls/hr Metoprolol Tartrate (Metoprolol Tartrate 50 Mg Tablet) 50 mg PO BID [facility]; Protocol Last Admin: 08/09/23 08:02 Dose: 50 mg Morphine Sulfate (Morphine Sulfate 2 Mg/Ml Cartridge) 2 mg IVPUSH Q3H PRN; Protocol PRN Reason: mod pain Last Admin: 08/09/23 08:01 Dose: 2 mg Ondansetron HCl (Ondansetron Hcl 4 Mg/2 Ml Vial) 4 mg IVPUSH Q8H PRN PRN Reason: Nausea and Vomiting Last Admin: 08/09/23 03:42 Dose: 4 mg Sertraline HCl (Sertraline Hcl 50 Mg Tablet) 50 mg PO BID [facility] Last Admin: 08/09/23 08:02 Dose: 50 mg Sodium Chloride (0.9 % Sodium Chloride Flush 3 Ml Syringe) 3 ml IVFLUSH QSHIFT [facility] Last Admin: 08/09/23 08:02 Dose: Not Given Home Medications Medication Instructions Recorded Confirmed Last Taken Type mirtazapine 7.5 mg tablet 7.5 mg PO BID 01/30/23 08/08/23 01/29/23 History sertraline 50 mg tablet 50 mg PO BID 01/30/23 08/08/23 01/29/23 History simvastatin 20 mg tablet 20 mg PO BEDTIME 01/30/23 08/08/23 01/28/23 History amlodipine 2.5 mg tablet (Norvasc) 5 mg PO DAILY 08/08/23 08/08/23 Unknown History Physical Exam Vital Signs: Vital Signs: Last Vital Signs Temp 97.9 F 08/09/23 07:18 Pulse 76 08/09/23 07:18 Resp 16 08/09/23 07:18 BP 168/87 H 08/09/23 07:18 Pulse Ox 94 08/09/23 07:18 O2 Del Method Room Air 08/09/23 07:18 BMI result Body Mass Index 19.7 Const: Other: answers questions well, NG-tube in place General: comfortable and no acute distress Resp: Effort & Inspection: normal respiratory effort Cardio: Rate: regular rate GI: Other: mildly distended but soft, no guarding, no rebound, no significant tenderness Extrem: General: Yes no clubbing, cyanosis or edema Results Labs 08/10/23 05:51 08/10/23 05:51 Labs: Abnormal lab results 08/08/23 08/08/23 08/08/23 Range/Units 14:57 15:06 18:05 WBC (4.8-10.8) X10*3/uL RBC 3.62 L (4.20-5.50) X10*6/uL Hct 36.7 L (37.0-47.0) % MCV 101.4 H (80.0-98.0) fL MCH 33.4 H (27.0-33.0) pg Lymph % (Auto) 17.1 L (20-40) % Lymph # (Auto) 1.1 L (1.2-4.9) X10*3/uL VBG pH 7.48 H (7.32-7.43) VBG HCO3 36 H (22-26) mmol/L Carbon Dioxide 33 H (22-29) mmol/L BUN 19 H (9-16) mg/dL Fasting Glucose (60-99) mg/dL Calcium 10.3 H (8.4-10.2) mg/dL 08/09/23 Range/Units 05:56 WBC 12.0 H (4.8-10.8) X10*3/uL RBC 3.76 L (4.20-5.50) X10*6/uL Hct (37.0-47.0) % MCV 100.8 H (80.0-98.0) fL MCH 33.8 H (27.0-33.0) pg Lymph % (Auto) (20-40) % Lymph # (Auto) (1.2-4.9) X10*3/uL VBG pH (7.32-7.43) VBG HCO3 (22-26) mmol/L Carbon Dioxide (22-29) mmol/L BUN 18 H (9-16) mg/dL Fasting Glucose 156 H (60-99) mg/dL Calcium (8.4-10.2) mg/dL Short CBC 08/08/23 08/09/23 Range/Units 14:57 05:56 WBC 6.2 12.0 H (4.8-10.8) X10*3/uL Hgb 12.1 12.7 (12.0-16.0) g/dl Hct 36.7 L 37.9 (37.0-47.0) % Plt Count 211 215 (160-400) X10*3/uL BMP 08/08/23 08/09/23 18:05 05:56 Sodium 141 140 Potassium 4.5 4.0 Chloride 100 101 Carbon Dioxide 33 H 27 BUN 19 H 18 H Creatinine 0.80 0.79 Calcium 10.3 H 9.7 Liver Function 08/08/23 Range/Units 18:05 Total Bilirubin 0.5 (0.0-1.0) mg/dL Direct Bilirubin 0.1 (0.0-0.5) mg/dL AST 26 (5-31) U/L ALT 14 (0-31) U/L Alkaline Phosphatase 65 (39-117) U/L Albumin 4.1 (3.5-5.0) g/dL Urine 08/08/23 Range/Units 15:01 Urine Color Yellow Urine Appearance Clear Urine pH 8.5 (5.0-9.0) Ur Specific [place] 1.015 (1.005-1.025) Urine Protein Negative (Neg-Trace) mg/dL Urine Glucose (UA) Negative (Negative) mg/dL All other labs normal. Laboratory Results WBC 12.0 X10*3/uL (4.8-10.8) H 08/09/23 05:56 RBC 3.76 X10*6/uL (4.20-5.50) L 08/09/23 05:56 Hgb 12.7 g/dl (12.0-16.0) 08/09/23 05:56 Hct 37.9 % (37.0-47.0) 08/09/23 05:56 MCV 100.8 fL (80.0-98.0) H 08/09/23 05:56 MCH 33.8 pg (27.0-33.0) H 08/09/23 05:56 MCHC 33.5 g/dl (31.0-35.0) 08/09/23 05:56 RDW 13.9 % (11.0-16.0) 08/09/23 05:56 Plt Count 215 X10*3/uL (160-400) 08/09/23 05:56 MPV 9.6 fL (9.4-12.3) 08/09/23 05:56 Immature Gran % (Auto) 0.3 % (0.0-0.4) 08/08/23 14:57 Neut % (Auto) 72.3 % (45-73) 08/08/23 14:57 Lymph % (Auto) 17.1 % (20-40) L 08/08/23 14:57 [place] % (Auto) 8.7 % (2-11) 08/08/23 14:57 Eos % (Auto) 1.1 % (0-4) 08/08/23 14:57 Baso % (Auto) 0.5 % (0-2) 08/08/23 14:57 Lymph # (Auto) 1.1 X10*3/uL (1.2-4.9) L 08/08/23 14:57 [place] # (Auto) 0.5 X10*3/uL (0.1-1.2) 08/08/23 14:57 Eos # (Auto) 0.1 X10*3/uL (0.0-0.4) 08/08/23 14:57 Baso # (Auto) 0.0 X10*3/uL (0.0-0.2) 08/08/23 14:57 Abs Immat Gran (auto) 0.02 X10*3/uL (0.00-0.03) 08/08/23 14:57 Absolute Neuts (auto) 4.5 x10*3/uL (2.0-8.3) 08/08/23 14:57 Absolute Nucleated RBC 0.000 X10*3/uL (0.0-0.012) 08/09/23 05:56 Nucleated RBC % (auto) 0.0 /100WBC (0.0-0.2) 08/09/23 05:56 VBG pH 7.48 (7.32-7.43) H 08/08/23 15:06 VBG pCO2 48 mmHg 08/08/23 15:06 VBG pO2 42 mmHg 08/08/23 15:06 VBG HCO3 36 mmol/L (22-26) H 08/08/23 15:06 VBG O2 Saturation 68.0 % 08/08/23 15:06 VBG Base Excess 11.3 mmol/L 08/08/23 15:06 Sodium 140 mmol/L (135-145) 08/09/23 05:56 Potassium 4.0 mmol/L (3.3-5.1) 08/09/23 05:56 Chloride 101 mmol/L (96-108) 08/09/23 05:56 Carbon Dioxide 27 mmol/L (22-29) 08/09/23 05:56 Anion Gap 16 (12-20) 08/09/23 05:56 BUN 18 mg/dL (9-16) H 08/09/23 05:56 Creatinine 0.79 mg/dL (0.5-1.4) 08/09/23 05:56 Estim Creat Clear Calc 39.1 08/09/23 05:56 Estimated GFR > 60 08/09/23 05:56 Random Glucose 103 mg/dL (60-115) 08/08/23 18:05 Fasting Glucose 156 mg/dL (60-99) H 08/09/23 05:56 Lactic Acid 0.9 mmol/L (0.5-2.0) 08/08/23 14:57 Calcium 9.7 mg/dL (8.4-10.2) 08/09/23 05:56 Magnesium 2.2 mg/dL (1.6-2.6) 08/08/23 18:05 Total Bilirubin 0.5 mg/dL (0.0-1.0) 08/08/23 18:05 Direct Bilirubin 0.1 mg/dL (0.0-0.5) 08/08/23 18:05 AST 26 U/L (5-31) 08/08/23 18:05 ALT 14 U/L (0-31) 08/08/23 18:05 Alkaline Phosphatase 65 U/L (39-117) 08/08/23 18:05 Troponin I High Sens 8.3 ng/L (<3.5-17.0) 08/08/23 18:05 C-Reactive Protein < 0.04 mg/dL (< or = 0.50) 08/08/23 18:05 Total Protein 7.5 g/dL (6.5-8.0) 08/08/23 18:05 Albumin 4.1 g/dL (3.5-5.0) 08/08/23 18:05 Lipase 24 U/L (8-78) 08/08/23 18:05 Urine Color Yellow 08/08/23 15:01 Urine Appearance Clear 08/08/23 15:01 Urine pH 8.5 (5.0-9.0) 08/08/23 15:01 Ur Specific [place] 1.015 (1.005-1.025) 08/08/23 15:01 Urine Protein Negative mg/dL (Neg-Trace) 08/08/23 15:01 Urine Glucose (UA) Negative mg/dL (Negative) 08/08/23 15:01 Urine Ketones Negative mg/dL (Negative) 08/08/23 15:01 Urine Blood Negative (Negative) 08/08/23 15:01 Urine Nitrite Negative (Negative) 08/08/23 15:01 Ur Leukocyte Esterase Negative (Negative) 08/08/23 15:01 Impressions Abdomen/Pelvis CT 08/08/23 19:03 IMPRESSION: Abnormal small bowel. Question enteritis versus distal small bowel obstruction. Small amount of ascites. Diverticular disease of the colon. No evidence of diverticulitis. Gallstones. Small right groin hernia containing fluid. Question mild diffuse bladder wall thickening. Correlate for urinary tract infection/cystitis. Fleischner guidelines were followed. Chest X-Ray 08/08/23 21:22 IMPRESSION: Nasogastric tube tip projects over stomach. Assessment and Plan (1) SBO (small bowel obstruction): Status: Acute She presented with abdominal pain. I have reviewed her CAT scan and there is note of diffuse dilatation of the small bowel. There is air and stool in the colon distally. I do not identify an obvious transition point. It is possible that she may have partial small-bowel obstruction secondary to adhesions from her previous surgery. However, she has some wall thickening as well that is suggestive of enteritis . Her abdominal exam is otherwise benign. Her NG tube output this morning is not a lot. We will keep this in place. I am going to order for repeat KUB. She should be adequately hydrated. I will follow along while she is in the hospital. Procedures Date of Service Date of Service: 08/10/23
--- NOTE | 2023-08-09 12:17 | P.PNIM_ITS ---
Subjective Subjective Date of Service: 08/09/23 Interval History: Seen and evaluated this morning complaining of pain and nausea no significant amount from the NG denies fever or chills Review of Systems Review of Systems: Yes all other systems are reviewed and are negative Physical Exam 2 Vital Signs: Vital Signs: Last Vital Signs Temp 97.9 F 08/09/23 07:18 Pulse 76 08/09/23 07:18 Resp 16 08/09/23 07:18 BP 168/87 H 08/09/23 07:18 Pulse Ox 94 08/09/23 07:18 O2 Del Method Room Air 08/09/23 07:18 BMI result Body Mass Index 19.7 Const: Other: Constitutional : Awake, interactive, not in distress Neck : Normal inspection, Supple Cardiovascular : RRR, no JVP, systolic murmur, no lower extremity edema Respiratory : good bilateral air entry, no crackles, wheezes or rhonchi Gastrointestinal: soft, lax, Normal bowel sounds, mild generalized tenderness with no surgical signs Skin : Warm, Dry Neurological : Alert & oriented x3, No focal deficit Objective Data Active Medications Amlodipine Besylate (Amlodipine Besylate 5 Mg Tablet) 5 mg PO DAILY [facility]; Protocol Last Admin: 08/09/23 08:02 Dose: 5 mg Documented By: CONSTANTINO Atorvastatin Calcium (Atorvastatin Calcium 10 Mg Tablet) 10 mg PO BEDTIME [facility] Enoxaparin Sodium (Enoxaparin Sodium 40 Mg/0.4 Ml Syringe) 40 mg SUBCUT Q24H [facility] Last Admin: 08/09/23 08:01 Dose: 40 mg Documented By: CONSTANTINO Sodium Chloride (Sodium Chloride 0.45 %) 1,000 mls @ 80 mls/hr IVCONT .[id number] [facility] Last Admin: 08/09/23 11:28 Dose: 80 mls/hr Documented By: CONSTANTINO Metoprolol Tartrate (Metoprolol Tartrate 50 Mg Tablet) 50 mg PO BID [facility]; Protocol Last Admin: 08/09/23 08:02 Dose: 50 mg Documented By: CONSTANTINO Morphine Sulfate (Morphine Sulfate 2 Mg/Ml Cartridge) 2 mg IVPUSH Q3H PRN; Protocol PRN Reason: mod pain Last Admin: 08/09/23 11:22 Dose: 2 mg Documented By: CONSTANTINO Ondansetron HCl (Ondansetron Hcl 4 Mg/2 Ml Vial) 4 mg IVPUSH Q8H PRN PRN Reason: Nausea and Vomiting Last Admin: 08/09/23 11:32 Dose: 4 mg Documented By: CONSTANTINO Sertraline HCl (Sertraline Hcl 50 Mg Tablet) 50 mg PO BID [facility] Last Admin: 08/09/23 08:02 Dose: 50 mg Documented By: CONSTANTINO Sodium Chloride (0.9 % Sodium Chloride Flush 3 Ml Syringe) 3 ml IVFLUSH QSHIFT [facility] Last Admin: 08/09/23 08:02 Dose: Not Given Documented By: CONSTANTINO Non-Admin Reason: IV Running Labs 08/09/23 05:56 08/09/23 05:56 Labs: Laboratory Results - last 24 hr 08/08/23 08/08/23 08/08/23 14:57 15:01 15:06 MCV 101.4 H MCH 33.4 H MCHC 33.0 RDW 13.8 Plt Count 211 MPV 9.9 Immature Gran % (Auto) 0.3 Neut % (Auto) 72.3 Lymph % (Auto) 17.1 L [place] % (Auto) 8.7 Eos % (Auto) 1.1 Baso % (Auto) 0.5 Lymph # (Auto) 1.1 L [place] # (Auto) 0.5 Eos # (Auto) 0.1 Baso # (Auto) 0.0 Abs Immat Gran (auto) 0.02 Absolute Neuts (auto) 4.5 Absolute Nucleated RBC 0.000 Nucleated RBC % (auto) 0.0 VBG pH 7.48 H VBG pCO2 48 VBG pO2 42 VBG HCO3 36 H VBG O2 Saturation 68.0 VBG Base Excess 11.3 Anion Gap Estim Creat Clear Calc Estimated GFR Random Glucose Fasting Glucose Lactic Acid 0.9 Calcium Magnesium Total Bilirubin Direct Bilirubin AST ALT Alkaline Phosphatase C-Reactive Protein Total Protein Albumin Lipase Urine Color Yellow Urine Appearance Clear Urine pH 8.5 Ur Specific [place] 1.015 Urine Protein Negative Urine Glucose (UA) Negative Urine Ketones Negative Urine Blood Negative Urine Nitrite Negative Ur Leukocyte Esterase Negative 08/08/23 08/09/23 18:05 05:56 MCV 100.8 H MCH 33.8 H MCHC 33.5 RDW 13.9 Plt Count 215 MPV 9.6 Immature Gran % (Auto) Neut % (Auto) Lymph % (Auto) [place] % (Auto) Eos % (Auto) Baso % (Auto) Lymph # (Auto) [place] # (Auto) Eos # (Auto) Baso # (Auto) Abs Immat Gran (auto) Absolute Neuts (auto) Absolute Nucleated RBC 0.000 Nucleated RBC % (auto) 0.0 VBG pH VBG pCO2 VBG pO2 VBG HCO3 VBG O2 Saturation VBG Base Excess Anion Gap 13 16 Estim Creat Clear Calc 40.2 39.1 Estimated GFR > 60 > 60 Random Glucose 103 Fasting Glucose 156 H Lactic Acid Calcium 10.3 H 9.7 Magnesium 2.2 Total Bilirubin 0.5 Direct Bilirubin 0.1 AST 26 ALT 14 Alkaline Phosphatase 65 C-Reactive Protein < 0.04 Total Protein 7.5 Albumin 4.1 Lipase 24 Urine Color Urine Appearance Urine pH Ur Specific [place] Urine Protein Urine Glucose (UA) Urine Ketones Urine Blood Urine Nitrite Ur Leukocyte Esterase Assessment and Plan (1) SBO (small bowel obstruction): Status: Acute (2) Abdominal pain: Status: Acute (3) Enteritis: Status: Acute Plan 87F PMH severe , CAD s/p CABG, htn, cva january 2023 - no residual deficits, mood disorder, 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 Quality Stroke Does the patient have a stroke diagnosis?: No VTE Prior VTE?: No VTE Risk Level:: Medical - moderate - high VTE Device Contraindication: Treatment Not Indicated VTE Drug Contraindication: N/A - Med Ordered
[2023-08-09] MEDS: metroNIDAZOLE/NS 500 MG/100 ML PIGGYBACK 100 MG IV ×2 (12:31→19:42)
[2023-08-09] MEDS: Lactated Ringers 1,000 ML 100 ML IVCONT ×2 (12:45→21:44)
--- NOTE | 2023-08-09 13:55 | MHC.CM.PN ---
Addendum entered by Fabiana Shea 08/09/23 14:39: [facility] does not accept the patients insurance. Original Note: IMM 08/09/23 Female DX SBO NG tube to low wall suction today. Patient lives with her son J Carlos. HCP is on file. Patient reports that she uses a walker. She has [facility] for home making. She is interested in meeting with the [employer] registrar from [facility]. A referral has been sent/tasked. Patient preferences obtained. She would like to go home with [facility]. If she qualifies for Acute rehab she would like to go back to [facility]. [facility] is her preferrence for STR. The referrals have been sent. Patient will transport via BLS if dispo is to a facility.
--- NOTE | 2023-08-09 15:58 | PM.EVENT ---
Event Note Date of Service: 08/09/23 Event Note: Seen on afternoon rounds Abdomen remains very soft Minimal tenderness She says she still has some abdominal pain Denies flatus KUB seen - stomach seems distended but there is air in the rectum No official report yet Keep NG tube in place She is not toxic looking Time Spent With Patient Time: Total time managing care of this patient today ____ minutes.
[2023-08-09 16:00] VITALS: BP 145/68; PULSE 78; RESP 16; TEMP 36.2; O2SAT 93
[2023-08-09 19:28] VITALS: BP 140/66; PULSE 88; RESP 16; TEMP 36.6; O2SAT 92
[2023-08-09] MEDS: Atorvastatin Calcium 10 MG TABLET PO (19:46)
[2023-08-09] MEDS: diphenhydrAMINE HCL 50 MG/ML VIAL 12.5 MG IVPUSH (22:46)
[2023-08-10 04:00] VITALS: BP 130/82; PULSE 66; RESP 18; TEMP 36.4; O2SAT 93
[2023-08-10] MEDS: metroNIDAZOLE/NS 500 MG/100 ML PIGGYBACK 100 MG IV ×3 (05:40→19:29)
[2023-08-10] MEDS: Lactated Ringers 1,000 ML 100 ML IVCONT ×2 (05:42→16:56)
[2023-08-10 06:00] LABS: Hematocrit 34.5 % (37.0-47.0); Hemoglobin 11.7 g/dl (12.0-16.0); Mean Corpuscular HGB Conc 33.9 g/dl (31.0-35.0); Mean Corpuscular Hemoglobin 33.9 pg (27.0-33.0); Platelet Count 205 X10*3/uL (160-400); Red Blood Count 3.45 X10*6/uL (4.20-5.50); Red Cell Distribution Width 13.9 % (11.0-16.0); White Blood Count 12.4 X10*3/uL (4.8-10.8)
[2023-08-10 06:45] LABS: Anion Gap 11 (12-20); Blood Urea Nitrogen 28 mg/dL (9-16); Calcium 9.3 mg/dL (8.4-10.2); Carbon Dioxide 27 mmol/L (22-29); Chloride 105 mmol/L (96-108); Creatinine Clr Calc Pharmacy 39.1; Estimated Glomerular Filt Rate > 60; Glucose Random 129 mg/dL (60-115); Sodium 139 mmol/L (135-145)
[2023-08-10 06:57] VITALS: BP 164/75; PULSE 68; RESP 16; TEMP 36.4; O2SAT 92
[2023-08-10] MEDS: Sertraline HCL 50 MG TABLET PO ×2 (09:03→19:31)
[2023-08-10] MEDS: ondansetron HCL 4 MG/2 ML VIAL IVPUSH ×2 (09:03→20:35)
[2023-08-10] MEDS: amLODIPine Besylate 5 MG TABLET PO (09:03)
[2023-08-10] MEDS: Metoprolol Tartrate 50 MG TABLET PO ×2 (09:04→19:31)
[2023-08-10] MEDS: 0.9 % Sodium Chloride Flush 3 ML SYRINGE IVFLUSH (09:04)
[2023-08-10] MEDS: Enoxaparin Sodium 40 MG/0.4 ML SYRINGE SUBCUT (09:04)
--- NOTE | 2023-08-10 10:14 | PM.PNGS ---
Subjective Subjective Date of Service: 08/13/23 Interval history: denies abdominal pain this morning states she that she has not passed flatus or bowel movements NG tube output seems to low she looks comfortable Physical Exam Vital Signs: Vital Signs: Last Vital Signs Temp 97.5 F 08/10/23 06:57 Pulse 68 08/10/23 06:57 Resp 16 08/10/23 06:57 BP 164/75 H 08/10/23 06:57 Pulse Ox 92 08/10/23 06:57 O2 Del Method Room Air 08/10/23 06:57 BMI result Body Mass Index 19.7 Const: Other: frail looking General: comfortable and no acute distress Resp: Effort & Inspection: abnormal respiratory effort Cardio: Rate: regular rate GI: Inspection: No distended Palpation (GI): Soft to palpation, not firm, nontender and no guarding Objective Data Active Medications Amlodipine Besylate (Amlodipine Besylate 5 Mg Tablet) 5 mg PO DAILY [facility]; Protocol Last Admin: 08/10/23 09:03 Dose: 5 mg Documented By: VIKAS Atorvastatin Calcium (Atorvastatin Calcium 10 Mg Tablet) 10 mg PO BEDTIME [facility] Last Admin: 08/09/23 19:46 Dose: 10 mg Documented By: CLARENCE Enoxaparin Sodium (Enoxaparin Sodium 40 Mg/0.4 Ml Syringe) 40 mg SUBCUT Q24H [facility] Last Admin: 08/10/23 09:04 Dose: 40 mg Documented By: VIKAS Lactated Ringer's (Lr) 1,000 mls @ 100 mls/hr IVCONT .Q10H [facility] Last Admin: 08/10/23 05:42 Dose: 100 mls/hr Documented By: CLARENCE Metronidazole (Flagyl) 500 mg in 100 mls @ 100 mls/hr IV Q8H [facility] Last Infusion: 08/10/23 06:42 Dose: Infused Documented By: CLARENCE Metoprolol Tartrate (Metoprolol Tartrate 50 Mg Tablet) 50 mg PO BID [facility]; Protocol Last Admin: 08/10/23 09:04 Dose: 50 mg Documented By: VIKAS Morphine Sulfate (Morphine Sulfate 2 Mg/Ml Cartridge) 2 mg IVPUSH Q3H PRN; Protocol PRN Reason: mod pain Last Admin: 08/09/23 11:22 Dose: 2 mg Documented By: CONSTANTINO Ondansetron HCl (Ondansetron Hcl 4 Mg/2 Ml Vial) 4 mg IVPUSH Q8H PRN PRN Reason: Nausea and Vomiting Last Admin: 08/10/23 09:03 Dose: 4 mg Documented By: VIKAS Sertraline HCl (Sertraline Hcl 50 Mg Tablet) 50 mg PO BID [facility] Last Admin: 08/10/23 09:03 Dose: 50 mg Documented By: VIKAS Sodium Chloride (0.9 % Sodium Chloride Flush 3 Ml Syringe) 3 ml IVFLUSH QSHIFT [facility] Last Admin: 08/10/23 09:04 Dose: 3 ml Documented By: VIKAS Labs 08/12/23 06:03 08/13/23 06:13 Labs: Laboratory Results - last 24 hr 08/10/23 05:51 MCV 100.0 H MCH 33.9 H MCHC 33.9 RDW 13.9 Plt Count 205 MPV 10.0 Absolute Nucleated RBC 0.000 Nucleated RBC % (auto) 0.0 Anion Gap 11 L Estim Creat Clear Calc 39.1 Estimated GFR > 60 Random Glucose 129 H Calcium 9.3 Procedures Date of Service Date of Service: 08/13/23 Progress Note: A&P Assessment and plan (1) Enteritis: Status: Acute Assessment and Plan: question of partial small-bowel obstruction abdomen very soft, benign and nondistended and nontender denies flatus KUB yesterday shows the stomach to be mildly distended with air all the way to the rectum NG tube output last night is minimal will consider clamping trial of NG tube Time Spent With Patient Time: Total time managing care of this patient today ____ minutes. Quality Stroke Does the patient have a stroke diagnosis?: No VTE Prior VTE?: No VTE Risk Level:: Medical - moderate - high VTE Device Contraindication: Treatment Not Indicated VTE Drug Contraindication: N/A - Med Ordered
--- NOTE | 2023-08-10 14:12 | MHC.CM.PN ---
Patient continues with NG tube today. No discharge today. Referral preferences sent yesterday for [facility] and Acute rehab. Dispo will be determined by pts recovery. A PT eval will assist with appropriate level of care. Patient will transport via BLS if to a facility. Likely her son will provide transport if final dispo is to home.
--- NOTE | 2023-08-10 15:00 | P.PNIM_ITS ---
Subjective Subjective Date of Service: 08/10/23 Interval History: Seen and evaluated this morning no pain and nausea no significant amount from the NG tolerating ice chips not passing gas Review of Systems Review of Systems: Yes all other systems are reviewed and are negative Physical Exam 2 Vital Signs: Vital Signs: Last Vital Signs Temp 97.5 F 08/10/23 06:57 Pulse 68 08/10/23 06:57 Resp 16 08/10/23 06:57 BP 164/75 H 08/10/23 06:57 Pulse Ox 92 08/10/23 06:57 O2 Del Method Room Air 08/10/23 06:57 BMI result Body Mass Index 19.7 Const: Other: Constitutional : Awake, interactive, not in distress Neck : Normal inspection, Supple Cardiovascular : RRR, no JVP, systolic murmur, no lower extremity edema Respiratory : good bilateral air entry, no crackles, wheezes or rhonchi Gastrointestinal: soft, lax, decreased bowel sounds, mild generalized tenderness with no surgical signs Skin : Warm, Dry Neurological : Alert & oriented x3, No focal deficit Objective Data Active Medications Amlodipine Besylate (Amlodipine Besylate 5 Mg Tablet) 5 mg PO DAILY [facility]; Protocol Last Admin: 08/10/23 09:03 Dose: 5 mg Documented By: VIKAS Atorvastatin Calcium (Atorvastatin Calcium 10 Mg Tablet) 10 mg PO BEDTIME [facility] Last Admin: 08/09/23 19:46 Dose: 10 mg Documented By: CLARENCE Enoxaparin Sodium (Enoxaparin Sodium 40 Mg/0.4 Ml Syringe) 40 mg SUBCUT Q24H [facility] Last Admin: 08/10/23 09:04 Dose: 40 mg Documented By: VIKAS Lactated Ringer's (Lr) 1,000 mls @ 100 mls/hr IVCONT .Q10H [facility] Last Admin: 08/10/23 05:42 Dose: 100 mls/hr Documented By: CLARENCE Metronidazole (Flagyl) 500 mg in 100 mls @ 100 mls/hr IV Q8H [facility] Last Infusion: 08/10/23 13:41 Dose: Infused Documented By: VIKAS Metoprolol Tartrate (Metoprolol Tartrate 50 Mg Tablet) 50 mg PO BID [facility]; Protocol Last Admin: 08/10/23 09:04 Dose: 50 mg Documented By: VIKAS Morphine Sulfate (Morphine Sulfate 2 Mg/Ml Cartridge) 2 mg IVPUSH Q3H PRN; Protocol PRN Reason: mod pain Last Admin: 08/09/23 11:22 Dose: 2 mg Documented By: CONSTANTINO Ondansetron HCl (Ondansetron Hcl 4 Mg/2 Ml Vial) 4 mg IVPUSH Q8H PRN PRN Reason: Nausea and Vomiting Last Admin: 08/10/23 09:03 Dose: 4 mg Documented By: VIKAS Sertraline HCl (Sertraline Hcl 50 Mg Tablet) 50 mg PO BID [facility] Last Admin: 08/10/23 09:03 Dose: 50 mg Documented By: VIKAS Sodium Chloride (0.9 % Sodium Chloride Flush 3 Ml Syringe) 3 ml IVFLUSH QSHIFT [facility] Last Admin: 08/10/23 09:04 Dose: 3 ml Documented By: VIKAS Labs 08/10/23 05:51 08/10/23 05:51 Labs: Laboratory Results - last 24 hr 08/10/23 05:51 MCV 100.0 H MCH 33.9 H MCHC 33.9 RDW 13.9 Plt Count 205 MPV 10.0 Absolute Nucleated RBC 0.000 Nucleated RBC % (auto) 0.0 Anion Gap 11 L Estim Creat Clear Calc 39.1 Estimated GFR > 60 Random Glucose 129 H Calcium 9.3 Assessment and Plan (1) Enteritis: Status: Acute (2) SBO (small bowel obstruction): Status: Acute Plan 87F PMH severe , CAD s/p CABG, htn, cva january 2023 - no residual deficits, mood disorder, 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 Quality Stroke Does the patient have a stroke diagnosis?: No VTE Prior VTE?: No VTE Risk Level:: Medical - moderate - high VTE Device Contraindication: Treatment Not Indicated VTE Drug Contraindication: N/A - Med Ordered
[2023-08-10 15:09] VITALS: BP 151/70; PULSE 66; RESP 18; TEMP 36.7; O2SAT 94
[2023-08-10] MEDS: Throat Spray, Medicated 177 ML BOTTLE 1 SPRAY MUCOUS MEM ×3 (17:30→21:54)
[2023-08-10] MEDS: Atorvastatin Calcium 10 MG TABLET PO (19:31)
[2023-08-10 20:00] VITALS: BP 160/79; PULSE 82; RESP 16; TEMP 36.6; O2SAT 94
[2023-08-10 20:10] VITALS: BP 134/72; PULSE 111; RESP 14; TEMP 36.6; O2SAT 93
[2023-08-10] MEDS: Morphine Sulfate 2 MG/ML CARTRIDGE IVPUSH (21:53)
[2023-08-11] MEDS: Lactated Ringers 1,000 ML 100 ML IVCONT ×3 (00:44→21:40)
[2023-08-11] MEDS: Throat Spray, Medicated 177 ML BOTTLE 1 SPRAY MUCOUS MEM ×3 (02:04→08:44)
[2023-08-11 03:19] VITALS: BP 141/85; PULSE 112; RESP 18; TEMP 36.5; O2SAT 92
[2023-08-11] MEDS: metroNIDAZOLE/NS 500 MG/100 ML PIGGYBACK 100 MG IV ×3 (03:28→21:39)
[2023-08-11 06:41] LABS: Anion Gap 13 (12-20); Blood Urea Nitrogen 26 mg/dL (9-16); Calcium 8.8 mg/dL (8.4-10.2); Carbon Dioxide 26 mmol/L (22-29); Chloride 104 mmol/L (96-108); Creatinine Clr Calc Pharmacy 42.3; Estimated Glomerular Filt Rate > 60; Glucose Random 108 mg/dL (60-115); Potassium 3.2 mmol/L (3.3-5.1); Sodium 140 mmol/L (135-145)
[2023-08-11 06:43] LABS: Hematocrit 30.3 % (37.0-47.0); Hemoglobin 10.3 g/dl (12.0-16.0); Mean Corpuscular Hemoglobin 34.6 pg (27.0-33.0); Mean Corpuscular Volume 101.7 fL (80.0-98.0); Mean Platelet Volume 10.6 fL (9.4-12.3); Platelet Count 179 X10*3/uL (160-400); Red Blood Count 2.98 X10*6/uL (4.20-5.50); Red Cell Distribution Width 13.9 % (11.0-16.0); White Blood Count 11.5 X10*3/uL (4.8-10.8)
[2023-08-11 07:59] VITALS: BP 126/75; PULSE 96; RESP 18; TEMP 36.4; O2SAT 92
[2023-08-11] MEDS: Sertraline HCL 50 MG TABLET PO ×2 (08:44→21:42)
[2023-08-11] MEDS: Metoprolol Tartrate 50 MG TABLET PO ×2 (08:44→21:42)
[2023-08-11] MEDS: Potassium Chloride/H20 10 MEQ/100 ML PIGGYBACK 100 MEQ IV ×2 (08:44→10:04)
[2023-08-11] MEDS: amLODIPine Besylate 5 MG TABLET PO (08:44)
--- NOTE | 2023-08-11 08:49 | PM.PNGS ---
Subjective Subjective Date of Service: 08/11/23 Interval history: Patient reports passing a small amount of flatus this morning but denies any bowel movement. Continued low output from nasogastric tube. She reports her abdominal pain is improved. Physical Exam Vital Signs: Vital Signs: Last Vital Signs Temp 97.6 F 08/11/23 07:59 Pulse 96 08/11/23 07:59 Resp 18 08/11/23 07:59 BP 126/75 08/11/23 07:59 Pulse Ox 92 08/11/23 07:59 O2 Del Method Room Air 08/11/23 07:59 BMI result Body Mass Index 19.7 Const: Other: frail looking General: comfortable and no acute distress Resp: Effort & Inspection: normal respiratory effort GI: Inspection: No distended Palpation (GI): Soft to palpation, not firm, nontender and no guarding Percussion: Yes tympanic to percussion Objective Data Active Medications Amlodipine Besylate (Amlodipine Besylate 5 Mg Tablet) 5 mg PO DAILY [facility]; Protocol Last Admin: 08/10/23 09:03 Dose: 5 mg Documented By: VIKAS Atorvastatin Calcium (Atorvastatin Calcium 10 Mg Tablet) 10 mg PO BEDTIME [facility] Last Admin: 08/10/23 19:31 Dose: 10 mg Documented By: CLARENCE Enoxaparin Sodium (Enoxaparin Sodium 40 Mg/0.4 Ml Syringe) 40 mg SUBCUT Q24H [facility] Last Admin: 08/10/23 09:04 Dose: 40 mg Documented By: VIKAS Lactated Ringer's (Lr) 1,000 mls @ 100 mls/hr IVCONT .Q10H [facility] Last Admin: 08/11/23 00:44 Dose: 100 mls/hr Documented By: CLARENCE Metronidazole (Flagyl) 500 mg in 100 mls @ 100 mls/hr IV Q8H [facility] Last Infusion: 08/11/23 04:34 Dose: Infused Documented By: CLARENCE Potassium Chloride (Potassium Chloride/H20) 10 meq in 100 mls @ 100 mls/hr IV Q1H [facility] Stop: 08/11/23 10:29 Metoprolol Tartrate (Metoprolol Tartrate 50 Mg Tablet) 50 mg PO BID [facility]; Protocol Last Admin: 08/10/23 19:31 Dose: 50 mg Documented By: CLARENCE Morphine Sulfate (Morphine Sulfate 2 Mg/Ml Cartridge) 2 mg IVPUSH Q3H PRN; Protocol PRN Reason: mod pain Last Admin: 08/10/23 21:53 Dose: 2 mg Documented By: CLARENCE Multi-Ingred Medicated Throat [place] (Throat [place], Medicated 177 Ml Bottle) 1 spray MUCOUS MEM Q2H PRN PRN Reason: Throat pain Last Admin: 08/11/23 05:47 Dose: 1 spray Documented By: CLARENCE Ondansetron HCl (Ondansetron Hcl 4 Mg/2 Ml Vial) 4 mg IVPUSH Q8H PRN PRN Reason: Nausea and Vomiting Last Admin: 08/10/23 20:35 Dose: 4 mg Documented By: CLARENCE Sertraline HCl (Sertraline Hcl 50 Mg Tablet) 50 mg PO BID [facility] Last Admin: 08/10/23 19:31 Dose: 50 mg Documented By: CLARENCE Sodium Chloride (0.9 % Sodium Chloride Flush 3 Ml Syringe) 3 ml IVFLUSH QSHIFT [facility] Last Admin: 08/11/23 07:24 Dose: Not Given Documented By: FE Non-Admin Reason: IV Running Labs 08/11/23 05:37 08/11/23 05:37 Labs: Laboratory Results - last 24 hr 08/11/23 05:37 MCV 101.7 H MCH 34.6 H MCHC 34.0 RDW 13.9 Plt Count 179 MPV 10.6 Absolute Nucleated RBC 0.000 Nucleated RBC % (auto) 0.0 Anion Gap 13 Estim Creat Clear Calc 42.3 Estimated GFR > 60 Random Glucose 108 Calcium 8.8 Procedures Date of Service Date of Service: 08/11/23 Progress Note: A&P Assessment and plan (1) Enteritis: Status: Acute Assessment and Plan: Patient now passing flatus but no bowel movement. She reports feeling more comfortable this morning. Continue NG tube decompression, NPO may benefit from nutritional support with TPN /PPN Time Spent With Patient Time: Total time managing care of this patient today ____ minutes. Quality Stroke Does the patient have a stroke diagnosis?: No VTE Prior VTE?: No VTE Risk Level:: Medical - moderate - high VTE Device Contraindication: Treatment Not Indicated VTE Drug Contraindication: N/A - Med Ordered
[2023-08-11] MEDS: ondansetron HCL 4 MG/2 ML VIAL IVPUSH (11:53)
[2023-08-11] MEDS: Pantoprazole Sodium 40 MG/10 ML VIAL IVPUSH ×2 (11:53→15:58)
--- NOTE | 2023-08-11 13:53 | HO.PM.IMPN ---
Subjective Subjective Date of Service: 08/11/23 Interval History: Seen and evaluated this morning no pain and nausea, feels better NG tube fell tolerating ice chips passing gas Review of Systems Review of Systems: Yes all other systems are reviewed and are negative Physical Exam Vital Signs: Vital Signs: Last Vital Signs Temp 97.6 F 08/11/23 07:59 Pulse 96 08/11/23 07:59 Resp 18 08/11/23 07:59 BP 126/75 08/11/23 07:59 Pulse Ox 92 08/11/23 07:59 O2 Del Method Room Air 08/11/23 07:59 BMI result Body Mass Index 19.7 Const: Other: Constitutional : Awake, interactive, not in distress Neck : Normal inspection, Supple Cardiovascular : RRR, no JVP, systolic murmur, no lower extremity edema Respiratory : good bilateral air entry, no crackles, wheezes or rhonchi Gastrointestinal: soft, lax, decreased bowel sounds, no tenderness with no surgical signs Skin : Warm, Dry Neurological : Alert & oriented x3, No focal deficit Objective Data Active Medications Amlodipine Besylate (Amlodipine Besylate 5 Mg Tablet) 5 mg PO DAILY [facility]; Protocol Last Admin: 08/11/23 08:44 Dose: 5 mg Documented By: FE Atorvastatin Calcium (Atorvastatin Calcium 10 Mg Tablet) 10 mg PO BEDTIME [facility] Last Admin: 08/10/23 19:31 Dose: 10 mg Documented By: CLARENCE Enoxaparin Sodium (Enoxaparin Sodium 40 Mg/0.4 Ml Syringe) 40 mg SUBCUT Q24H [facility] Last Admin: 08/11/23 08:42 Dose: Not Given Documented By: FE Non-Admin Reason: Physician Held Med Lactated Ringer's (Lr) 1,000 mls @ 100 mls/hr IVCONT .Q10H [facility] Last Admin: 08/11/23 08:48 Dose: 100 mls/hr Documented By: FE Metronidazole (Flagyl) 500 mg in 100 mls @ 100 mls/hr IV Q8H [facility] Last Infusion: 08/11/23 13:00 Dose: Infused Documented By: FE Metoprolol Tartrate (Metoprolol Tartrate 50 Mg Tablet) 50 mg PO BID [facility]; Protocol Last Admin: 08/11/23 08:44 Dose: 50 mg Documented By: FE Morphine Sulfate (Morphine Sulfate 2 Mg/Ml Cartridge) 2 mg IVPUSH Q3H PRN; Protocol PRN Reason: mod pain Last Admin: 08/10/23 21:53 Dose: 2 mg Documented By: CLARENCE Gallagher-Ingred Medicated Throat [place] (Throat [place], Medicated 177 Ml Bottle) 1 spray MUCOUS MEM Q2H PRN PRN Reason: Throat pain Last Admin: 08/11/23 08:44 Dose: 1 spray Documented By: FE Ondansetron HCl (Ondansetron Hcl 4 Mg/2 Ml Vial) 4 mg IVPUSH Q8H PRN PRN Reason: Nausea and Vomiting Last Admin: 08/11/23 11:53 Dose: 4 mg Documented By: FE Pantoprazole Sodium (Pantoprazole Sodium 40 Mg/10 Ml Vial) 40 mg IVPUSH BID@0630,1630 [facility] Last Admin: 08/11/23 11:53 Dose: 40 mg Documented By: FE Sertraline HCl (Sertraline Hcl 50 Mg Tablet) 50 mg PO BID [facility] Last Admin: 08/11/23 08:44 Dose: 50 mg Documented By: FE Sodium Chloride (0.9 % Sodium Chloride Flush 3 Ml Syringe) 3 ml IVFLUSH QSHIFT [facility] Last Admin: 08/11/23 07:24 Dose: Not Given Documented By: FE Non-Admin Reason: IV Running Labs 08/11/23 05:37 08/11/23 05:37 Labs: Laboratory Results - last 24 hr 08/11/23 05:37 MCV 101.7 H MCH 34.6 H MCHC 34.0 RDW 13.9 Plt Count 179 MPV 10.6 Absolute Nucleated RBC 0.000 Nucleated RBC % (auto) 0.0 Anion Gap 13 Estim Creat Clear Calc 42.3 Estimated GFR > 60 Random Glucose 108 Calcium 8.8 Assessment and Plan (1) Enteritis: Status: Acute (2) Abdominal pain: Status: Acute (3) SBO (small bowel obstruction): Status: Acute Plan 87F PMH severe , CAD s/p CABG, htn, cva january 2023 - no residual deficits, mood disorder, 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, presented with abd pain Abdominal pain Concern over functional SBO vs Enteritis continue IVF continue Flagyl IV pain control NPO for now Surgery input appreciated, conservative management repeat KUB as needed hold antiplatelet in case surgery needed Consider PPN\TPN if no improvement by tomorrow to tolerate diet severe monitor closely while on fluids CAD, history of cva holding antiplatlet continue statin htn amldoipine metoprolol mood disorder zoloft dvt prophylaxis - lovenox DNR/DNI The patient will need overnight hospital stay for treatment of enteritis\SBO pending clinical improvement and advance diet. Quality Stroke Does the patient have a stroke diagnosis?: No VTE Prior VTE?: No VTE Risk Level:: Medical - moderate - high VTE Device Contraindication: Treatment Not Indicated VTE Drug Contraindication: N/A - Med Ordered
[2023-08-11 15:29] VITALS: BP 128/68; PULSE 96; RESP 16; TEMP 36.5; O2SAT 92
--- NOTE | 2023-08-11 18:08 | PC.NURSE ---
Pt noted to have NG tube coiled in back of throat, NG tube removed with no issues, MD Dr. Scott made aware, advised okay to hold off no NG tube replacement at this time, Dr Mcrae also made aware, Pt is resting in bed with even respirations, tolerating sips of water, denies any abd or throat pain, denies nausea or vomiting.
[2023-08-11 19:29] VITALS: BP 140/69; PULSE 99; RESP 16; TEMP 36.2; O2SAT 94
[2023-08-11] MEDS: Atorvastatin Calcium 10 MG TABLET PO (21:42)
[2023-08-12] MEDS: ondansetron HCL 4 MG/2 ML VIAL IVPUSH ×3 (00:52→18:24)
[2023-08-12] MEDS: metroNIDAZOLE/NS 500 MG/100 ML PIGGYBACK 100 MG IV ×3 (03:14→20:23)
[2023-08-12 04:00] VITALS: BP 141/82; PULSE 98; RESP 16; TEMP 36.6; O2SAT 91
[2023-08-12] MEDS: Pantoprazole Sodium 40 MG/10 ML VIAL IVPUSH ×2 (05:34→15:57)
--- NOTE | 2023-08-12 05:49 | HO.SKINPHOTO ---
Location: buttocks/coccyx Category:split skin Stage:2 Length: Width: Depth: cm Location: Category: Stage: Length: Width: Depth: cm Location: Category: Stage: Length: Width: Depth: cm Location: Category: Stage: Length: Width: Depth: cm Location: Category: Stage: Length: Width: Depth: cm Location: Category: Stage: Length: Width: Depth: cm
[2023-08-12 06:32] LABS: Hematocrit 29.5 % (37.0-47.0); Mean Corpuscular HGB Conc 33.9 g/dl (31.0-35.0); Mean Corpuscular Hemoglobin 34.6 pg (27.0-33.0); Mean Corpuscular Volume 102.1 fL (80.0-98.0); Mean Platelet Volume 10.5 fL (9.4-12.3); Platelet Count 166 X10*3/uL (160-400); Red Blood Count 2.89 X10*6/uL (4.20-5.50); Red Cell Distribution Width 13.7 % (11.0-16.0); White Blood Count 8.6 X10*3/uL (4.8-10.8)
[2023-08-12 06:46] LABS: Anion Gap 15 (12-20); Blood Urea Nitrogen 27 mg/dL (9-16); Calcium 8.7 mg/dL (8.4-10.2); Carbon Dioxide 25 mmol/L (22-29); Chloride 105 mmol/L (96-108); Creatinine Clr Calc Pharmacy 42.3; Estimated Glomerular Filt Rate > 60; Glucose Random 113 mg/dL (60-115); Potassium 3.1 mmol/L (3.3-5.1); Sodium 142 mmol/L (135-145)
[2023-08-12 07:42] VITALS: BP 154/79; PULSE 93; RESP 16; TEMP 36.6; O2SAT 93
[2023-08-12] MEDS: amLODIPine Besylate 5 MG TABLET PO (08:57)
[2023-08-12] MEDS: Metoprolol Tartrate 50 MG TABLET PO ×2 (08:57→20:25)
[2023-08-12] MEDS: Sertraline HCL 50 MG TABLET PO ×2 (08:57→20:25)
[2023-08-12] MEDS: Lactated Ringers 1,000 ML 100 ML IVCONT (08:57)
--- NOTE | 2023-08-12 09:13 | P.PNGS_ITS ---
Subjective Subjective Date of Service: 08/12/23 Interval history: The patient's NG tube had migrated into her oral cavity and required removal. Tube was left out patient actually feels improved. Patient reports passing flatus and BM this morning. Passed a large amount of flatus throughout the night. She is coughing up thick phlegm and reports some nausea but denies any vomiting. She would like to try clear liquids. Physical Exam 2 Vital Signs: Vital Signs: Last Vital Signs Temp 97.9 F 08/12/23 07:42 Pulse 93 08/12/23 07:42 Resp 16 08/12/23 07:42 BP 154/79 H 08/12/23 07:42 Pulse Ox 93 08/12/23 07:42 O2 Del Method Room Air 08/12/23 07:42 BMI result Body Mass Index 19.7 Const: Other: frail looking General: comfortable and no acute distress Resp: Effort & Inspection: normal respiratory effort GI: Other: Much softer and less distended. Feels some tympany to percussion, nontender to palpation. Extrem: General: Yes no clubbing, cyanosis or edema Objective Data Active Medications Amlodipine Besylate (Amlodipine Besylate 5 Mg Tablet) 5 mg PO DAILY [facility]; Protocol Last Admin: 08/12/23 08:57 Dose: 5 mg Documented By: FE Atorvastatin Calcium (Atorvastatin Calcium 10 Mg Tablet) 10 mg PO BEDTIME [facility] Last Admin: 08/11/23 21:42 Dose: 10 mg Documented By: CLARENCE Enoxaparin Sodium (Enoxaparin Sodium 40 Mg/0.4 Ml Syringe) 40 mg SUBCUT Q24H [facility] Last Admin: 08/11/23 08:42 Dose: Not Given Documented By: FE Non-Admin Reason: Physician Held Med Lactated Ringer's (Lr) 1,000 mls @ 100 mls/hr IVCONT .Q10H [facility] Last Admin: 08/12/23 08:57 Dose: 100 mls/hr Documented By: FE Metronidazole (Flagyl) 500 mg in 100 mls @ 100 mls/hr IV Q8H [facility] Last Infusion: 08/12/23 04:20 Dose: Infused Documented By: CLARENCE Metoprolol Tartrate (Metoprolol Tartrate 50 Mg Tablet) 50 mg PO BID [facility]; Protocol Last Admin: 08/12/23 08:57 Dose: 50 mg Documented By: FE Morphine Sulfate (Morphine Sulfate 2 Mg/Ml Cartridge) 2 mg IVPUSH Q3H PRN; Protocol PRN Reason: mod pain Last Admin: 08/10/23 21:53 Dose: 2 mg Documented By: CLARENCE Multi-Ingred Medicated Throat [place] (Throat [place], Medicated 177 Ml Bottle) 1 spray MUCOUS MEM Q2H PRN PRN Reason: Throat pain Last Admin: 08/11/23 08:44 Dose: 1 spray Documented By: FE Ondansetron HCl (Ondansetron Hcl 4 Mg/2 Ml Vial) 4 mg IVPUSH Q8H PRN PRN Reason: Nausea and Vomiting Last Admin: 08/12/23 08:57 Dose: 4 mg Documented By: FE Pantoprazole Sodium (Pantoprazole Sodium 40 Mg/10 Ml Vial) 40 mg IVPUSH BID@0630,1630 [facility] Last Admin: 08/12/23 05:34 Dose: 40 mg Documented By: CLARENCE Sertraline HCl (Sertraline Hcl 50 Mg Tablet) 50 mg PO BID [facility] Last Admin: 08/12/23 08:57 Dose: 50 mg Documented By: FE Sodium Chloride (0.9 % Sodium Chloride Flush 3 Ml Syringe) 3 ml IVFLUSH QSHIFT [facility] Last Admin: 08/12/23 07:10 Dose: Not Given Documented By: FE Non-Admin Reason: IV Running Labs 08/12/23 06:03 08/12/23 06:03 Labs: Laboratory Results - last 24 hr 08/12/23 06:03 MCV 102.1 H MCH 34.6 H MCHC 33.9 RDW 13.7 Plt Count 166 MPV 10.5 Absolute Nucleated RBC 0.000 Nucleated RBC % (auto) 0.0 Anion Gap 15 Estim Creat Clear Calc 42.3 Estimated GFR > 60 Random Glucose 113 Calcium 8.7 Procedures Date of Service Date of Service: 08/12/23 Progress Note: A&P Assessment and plan (1) Enteritis: Status: Acute Assessment and Plan: NG tube out yesterday. Patient passing flatus and BM. Continued nausea without vomiting.Examination reveals abdomen to be softer and nondistended with minimal tympany. Agree with starting clear liquids, advanced slowly. Time Spent With Patient Time: Total time managing care of this patient today ____ minutes. Quality Stroke Does the patient have a stroke diagnosis?: No VTE Prior VTE?: No VTE Risk Level:: Medical - moderate - high VTE Device Contraindication: Treatment Not Indicated VTE Drug Contraindication: N/A - Med Ordered
[2023-08-12] MEDS: Throat Spray, Medicated 177 ML BOTTLE 1 SPRAY MUCOUS MEM (09:55)
--- NOTE | 2023-08-12 12:20 | HO.PM.IMPN ---
Subjective Subjective Date of Service: 08/12/23 Interval History: Seen and evaluated this morning no pain but has mild nausea, feels better tolerating ice chips and water passing gas and had BM Review of Systems Review of Systems: Yes all other systems are reviewed and are negative Physical Exam Vital Signs: Vital Signs: Last Vital Signs Temp 97.9 F 08/12/23 07:42 Pulse 93 08/12/23 07:42 Resp 16 08/12/23 07:42 BP 154/79 H 08/12/23 07:42 Pulse Ox 93 08/12/23 07:42 O2 Del Method Room Air 08/12/23 07:42 BMI result Body Mass Index 19.7 Const: Other: Constitutional : Awake, interactive, not in distress Neck : Normal inspection, Supple Cardiovascular : RRR, no JVP, systolic murmur, no lower extremity edema Respiratory : good bilateral air entry, no crackles, wheezes or rhonchi Gastrointestinal: soft, lax, normal bowel sounds, no tenderness with no surgical signs Skin : Warm, Dry Neurological : Alert & oriented x3, No focal deficit Objective Data Active Medications Amlodipine Besylate (Amlodipine Besylate 5 Mg Tablet) 5 mg PO DAILY [facility]; Protocol Last Admin: 08/12/23 08:57 Dose: 5 mg Documented By: FE Atorvastatin Calcium (Atorvastatin Calcium 10 Mg Tablet) 10 mg PO BEDTIME [facility] Last Admin: 08/11/23 21:42 Dose: 10 mg Documented By: CLARENCE Enoxaparin Sodium (Enoxaparin Sodium 40 Mg/0.4 Ml Syringe) 40 mg SUBCUT Q24H [facility] Last Admin: 08/11/23 08:42 Dose: Not Given Documented By: FE Non-Admin Reason: Physician Held Med Lactated Ringer's (Lr) 1,000 mls @ 100 mls/hr IVCONT .Q10H [facility] Stop: 08/12/23 20:00 Last Admin: 08/12/23 08:57 Dose: 100 mls/hr Documented By: FE Metronidazole (Flagyl) 500 mg in 100 mls @ 100 mls/hr IV Q8H [facility] Last Admin: 08/12/23 11:50 Dose: 100 mls/hr Documented By: FE Metoprolol Tartrate (Metoprolol Tartrate 50 Mg Tablet) 50 mg PO BID [facility]; Protocol Last Admin: 08/12/23 08:57 Dose: 50 mg Documented By: FE Morphine Sulfate (Morphine Sulfate 2 Mg/Ml Cartridge) 2 mg IVPUSH Q3H PRN; Protocol PRN Reason: mod pain Last Admin: 08/10/23 21:53 Dose: 2 mg Documented By: CLARENCE Multi-Ingred Medicated Throat [place] (Throat [place], Medicated 177 Ml Bottle) 1 spray MUCOUS MEM Q2H PRN PRN Reason: Throat pain Last Admin: 08/12/23 09:55 Dose: 1 spray Documented By: FE Ondansetron HCl (Ondansetron Hcl 4 Mg/2 Ml Vial) 4 mg IVPUSH Q8H PRN PRN Reason: Nausea and Vomiting Last Admin: 08/12/23 08:57 Dose: 4 mg Documented By: FE Pantoprazole Sodium (Pantoprazole Sodium 40 Mg/10 Ml Vial) 40 mg IVPUSH BID@0630,1630 [facility] Last Admin: 08/12/23 05:34 Dose: 40 mg Documented By: CLARENCE Sertraline HCl (Sertraline Hcl 50 Mg Tablet) 50 mg PO BID [facility] Last Admin: 08/12/23 08:57 Dose: 50 mg Documented By: FE Sodium Chloride (0.9 % Sodium Chloride Flush 3 Ml Syringe) 3 ml IVFLUSH QSHIFT [facility] Last Admin: 08/12/23 07:10 Dose: Not Given Documented By: FE Non-Admin Reason: IV Running Labs 08/12/23 06:03 08/12/23 06:03 Labs: Laboratory Results - last 24 hr 08/12/23 06:03 MCV 102.1 H MCH 34.6 H MCHC 33.9 RDW 13.7 Plt Count 166 MPV 10.5 Absolute Nucleated RBC 0.000 Nucleated RBC % (auto) 0.0 Anion Gap 15 Estim Creat Clear Calc 42.3 Estimated GFR > 60 Random Glucose 113 Calcium 8.7 Assessment and Plan (1) Enteritis: Status: Acute (2) Abdominal pain: Status: Acute Plan 87F PMH severe , CAD s/p CABG, htn, cva january 2023 - no residual deficits, mood disorder, 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, presented with abd pain Abdominal pain 2/2 functional SBO vs GastroEnteritis DC IVF later today continue Flagyl IV pain control Advance diet to clears Surgery input appreciated, conservative management repeat KUB as needed hold antiplatelet in case surgery needed Consider PPN\TPN if no improvement by tomorrow to tolerate diet severe monitor closely while on fluids CAD, history of cva holding antiplatlet continue statin htn amldoipine metoprolol mood disorder zoloft dvt prophylaxis - lovenox DNR/DNI The patient will need overnight hospital stay for treatment of enteritis\SBO pending clinical improvement and advance diet. Quality Stroke Does the patient have a stroke diagnosis?: No VTE Prior VTE?: No VTE Risk Level:: Medical - moderate - high VTE Device Contraindication: Treatment Not Indicated VTE Drug Contraindication: N/A - Med Ordered
[2023-08-12 15:37] VITALS: BP 148/68; PULSE 98; RESP 18; TEMP 36.8; O2SAT 93
[2023-08-12] MEDS: Potassium Chloride Packet 20 MEQ PACKET PO (15:57)
[2023-08-12] MEDS: Morphine Sulfate 2 MG/ML CARTRIDGE IVPUSH (18:24)
[2023-08-12 20:00] VITALS: BP 158/86; PULSE 109; RESP 18; TEMP 36.6; O2SAT 95
[2023-08-12] MEDS: Atorvastatin Calcium 10 MG TABLET PO (20:25)
[2023-08-12] MEDS: 0.9 % Sodium Chloride Flush 3 ML SYRINGE IVFLUSH (20:43)
[2023-08-13] MEDS: metroNIDAZOLE/NS 500 MG/100 ML PIGGYBACK 100 MG IV ×3 (03:59→21:45)
[2023-08-13 04:00] VITALS: BP 151/85; PULSE 93; RESP 19; TEMP 36.5; O2SAT 94
[2023-08-13] MEDS: Pantoprazole Sodium 40 MG/10 ML VIAL IVPUSH ×2 (06:18→15:36)
[2023-08-13 07:27] LABS: Anion Gap 14 (12-20); Blood Urea Nitrogen 25 mg/dL (9-16); Calcium 8.7 mg/dL (8.4-10.2); Carbon Dioxide 26 mmol/L (22-29); Chloride 105 mmol/L (96-108); Creatinine Clr Calc Pharmacy 44.2; Estimated Glomerular Filt Rate > 60; Glucose Random 118 mg/dL (60-115); Sodium 142 mmol/L (135-145)
[2023-08-13 07:45] VITALS: BP 165/108; PULSE 94; RESP 16; TEMP 37.1; O2SAT 92
--- NOTE | 2023-08-13 08:01 | P.PNGS_ITS ---
Subjective Subjective Date of Service: 08/13/23 Interval history: Denies abdominal pain says she is passing flatus Tolerating small amounts of clear liquids Physical Exam 2 Vital Signs: Vital Signs: Last Vital Signs Temp 98.7 F 08/13/23 07:45 Pulse 94 08/13/23 07:45 Resp 16 08/13/23 07:45 BP 165/108 H 08/13/23 07:45 Pulse Ox 92 08/13/23 07:45 O2 Del Method Room Air 08/13/23 07:45 BMI result Body Mass Index 19.7 Const: Other: Frail looking, conversant General: no acute distress Resp: Effort & Inspection: normal respiratory effort GI: Palpation (GI): Soft to palpation, not firm, nontender and no guarding Objective Data Active Medications Amlodipine Besylate (Amlodipine Besylate 5 Mg Tablet) 5 mg PO DAILY [facility]; Protocol Last Admin: 08/12/23 08:57 Dose: 5 mg Documented By: FE Atorvastatin Calcium (Atorvastatin Calcium 10 Mg Tablet) 10 mg PO BEDTIME [facility] Last Admin: 08/12/23 20:25 Dose: 10 mg Documented By: KLAUDIA Enoxaparin Sodium (Enoxaparin Sodium 40 Mg/0.4 Ml Syringe) 40 mg SUBCUT Q24H [facility] Last Admin: 08/11/23 08:42 Dose: Not Given Documented By: FE Non-Admin Reason: Physician Held Med Metronidazole (Flagyl) 500 mg in 100 mls @ 100 mls/hr IV Q8H [facility] Last Infusion: 08/13/23 05:04 Dose: Infused Documented By: CHELSEA Metoprolol Tartrate (Metoprolol Tartrate 50 Mg Tablet) 50 mg PO BID [facility]; Protocol Last Admin: 08/12/23 20:25 Dose: 50 mg Documented By: KLAUDIA Morphine Sulfate (Morphine Sulfate 2 Mg/Ml Cartridge) 2 mg IVPUSH Q3H PRN; Protocol PRN Reason: mod pain Last Admin: 08/12/23 18:24 Dose: 2 mg Documented By: FE Multi-Ingred Medicated Throat [place] (Throat [place], Medicated 177 Ml Bottle) 1 spray MUCOUS MEM Q2H PRN PRN Reason: Throat pain Last Admin: 08/12/23 09:55 Dose: 1 spray Documented By: FE Ondansetron HCl (Ondansetron Hcl 4 Mg/2 Ml Vial) 4 mg IVPUSH Q8H PRN PRN Reason: Nausea and Vomiting Last Admin: 08/12/23 18:24 Dose: 4 mg Documented By: FE Pantoprazole Sodium (Pantoprazole Sodium 40 Mg/10 Ml Vial) 40 mg IVPUSH BID@0630,1630 [facility] Last Admin: 08/13/23 06:18 Dose: 40 mg Documented By: CHELSEA Sertraline HCl (Sertraline Hcl 50 Mg Tablet) 50 mg PO BID [facility] Last Admin: 08/12/23 20:25 Dose: 50 mg Documented By: KLAUDIA Sodium Chloride (0.9 % Sodium Chloride Flush 3 Ml Syringe) 3 ml IVFLUSH QSHIFT [facility] Last Admin: 08/12/23 20:43 Dose: 3 ml Documented By: KLAUDIA Labs 08/12/23 06:03 08/13/23 06:13 Labs: Laboratory Results - last 24 hr 08/13/23 06:13 Anion Gap 14 Estim Creat Clear Calc 44.2 Estimated GFR > 60 Random Glucose 118 H Calcium 8.7 Procedures Date of Service Date of Service: 08/13/23 Progress Note: A&P Assessment and plan (1) Enteritis: Status: Acute Assessment and Plan: NG tube has been out since yesterday No vomiting Denies abdominal pain Okay to slowly advance diet Exam benign Time Spent With Patient Time: Total time managing care of this patient today ____ minutes. Quality Stroke Does the patient have a stroke diagnosis?: No VTE Prior VTE?: No VTE Risk Level:: Medical - moderate - high VTE Device Contraindication: Treatment Not Indicated VTE Drug Contraindication: N/A - Med Ordered
[2023-08-13] MEDS: Sertraline HCL 50 MG TABLET PO (08:09)
[2023-08-13] MEDS: 0.9 % Sodium Chloride Flush 3 ML SYRINGE IVFLUSH ×2 (08:09→15:36)
[2023-08-13] MEDS: Metoprolol Tartrate 50 MG TABLET PO (08:09)
[2023-08-13] MEDS: Potassium Chloride Packet 20 MEQ PACKET 40 MEQ PO (08:09)
[2023-08-13] MEDS: amLODIPine Besylate 5 MG TABLET PO (08:09)
[2023-08-13] MEDS: Simethicone 80 MG TAB.CHEW 160 MG PO (11:09)
--- NOTE | 2023-08-13 11:55 | MHC.CM.PN ---
Per MD rounds patient is not medically cleared. She will need a PT eval to assist with dispo determination. Patient will transport via BLS.
[2023-08-13 12:08] VITALS: BP 165/108; PULSE 94; O2SAT 92
--- NOTE | 2023-08-13 12:58 | P.CDIM_ITS ---
PROVIDER RESPONSE TEXT: To clarify, the appropriate diagnosis supported by the clinical indicators: Hypokalemia QUERY TEXT: PHYSICIAN'S DOCUMENTATION REQUEST Date of Query: 08/13/2023 11:49 AM EST Patient Name: Juliet Deras Admit Date: 08/09/2023 Dear Joseph Moon, A review of the medical record indicates additional documentation may be needed. Please review below and update the documentation accordingly. Clinical Indicators: Potassium on 08/11/23: 3.2 Potassium on 08/12/23: 3.1 Potassium on 08/13/23: 3.0 Treated with Klor Con 20 meq po once 08/12 Klor Con 40 meq po once 08/13 Based on the above, could you clarify the appropriate diagnosis, if significant, that supports the ab ove abnormalities and additional evaluation, monitoring, and/or treatment rendered: Hypokalemia Labs indicate a diagnosis of (please specify) Other (explain) Clinically unable to determine (explain) Thank you, Alla Diaz RN Use of terms such as suspected, likely, concern for, or probable (associated with a specific diagnosi s that is being evaluated, monitored, or treated as if it exists) are acceptable and can be coded in the inpatient se tting, when documented at the time of discharge. Please use your independent medical judgment in providing your response. THIS QUERY IS PART OF THE PERMANENT MEDICAL RECORD
--- NOTE | 2023-08-13 12:59 | P.CDIM_ITS ---
PROVIDER RESPONSE TEXT: To clarify, the appropriate diagnosis supported by the clinical indicators: Underweight QUERY TEXT: PHYSICIAN'S DOCUMENTATION REQUEST Date of Query: 08/13/2023 11:53 AM EST Patient Name: Juliet Deras Admit Date: 08/09/2023 Dear Joseph Moon, A review of the medical record indicates additional documentation may be needed. Please review below and update the documentation accordingly. Clinical Indicators: Height: ( ) 5'3 Weight: ( ) 50.4 kg BMI: ( ) 19.7 Other Clinical Notes Supporting Significance of the BMI: Per Nutritional Risk Assessment 08/09/23: on therapeutic diet If possible, please provide an associated diagnosis related to the abnormal BMI, such as: Underweight Weight loss Cachexia Anorexia BMI is not significant Other (explain) Clinically unable to determine (explain) Thank you, Alla Diaz RN Use of terms such as suspected, likely, concern for, or probable (associated with a specific diagnosi s that is being evaluated, monitored, or treated as if it exists) are acceptable and can be coded in the inpatient se tting, when documented at the time of discharge. Please use your independent medical judgment in providing your response. THIS QUERY IS PART OF THE PERMANENT MEDICAL RECORD
--- NOTE | 2023-08-13 14:04 | HO.PM.IMPN ---
Subjective Subjective Date of Service: 08/13/23 Interval History: Seen and evaluated this morning No nausea or vomiting tolerating ice chips and water in small amount feels distended and burping Having small BM Review of Systems Review of Systems: Yes all other systems are reviewed and are negative Physical Exam Vital Signs: Vital Signs: Last Vital Signs Temp 98.7 F 08/13/23 07:45 Pulse 94 08/13/23 12:08 Resp 16 08/13/23 07:45 BP 165/108 H 08/13/23 12:08 Pulse Ox 92 08/13/23 12:08 O2 Del Method Room Air 08/13/23 07:45 BMI result Body Mass Index 19.7 Const: Other: Constitutional : Awake, interactive, not in distress Neck : Normal inspection, Supple Cardiovascular : RRR, no JVP, systolic murmur, no lower extremity edema Respiratory : good bilateral air entry, no crackles, wheezes or rhonchi Gastrointestinal: soft, lax, normal bowel sounds, no tenderness with no surgical signs , mildly distended Skin : Warm, Dry Neurological : Alert & oriented x3, No focal deficit Objective Data Active Medications Amlodipine Besylate (Amlodipine Besylate 5 Mg Tablet) 5 mg PO DAILY [facility]; Protocol Last Admin: 08/13/23 08:09 Dose: 5 mg Documented By: CONSTANTINO Atorvastatin Calcium (Atorvastatin Calcium 10 Mg Tablet) 10 mg PO BEDTIME [facility] Last Admin: 08/12/23 20:25 Dose: 10 mg Documented By: KLAUDIA Enoxaparin Sodium (Enoxaparin Sodium 40 Mg/0.4 Ml Syringe) 40 mg SUBCUT Q24H [facility] Last Admin: 08/11/23 08:42 Dose: Not Given Documented By: FE Non-Admin Reason: Physician Held Med Metronidazole (Flagyl) 500 mg in 100 mls @ 100 mls/hr IV Q8H [facility] Last Infusion: 08/13/23 12:12 Dose: Infused Documented By: CONSTANTINO Metoprolol Tartrate (Metoprolol Tartrate 50 Mg Tablet) 50 mg PO BID [facility]; Protocol Last Admin: 08/13/23 08:09 Dose: 50 mg Documented By: CONSTANTINO Morphine Sulfate (Morphine Sulfate 2 Mg/Ml Cartridge) 2 mg IVPUSH Q3H PRN; Protocol PRN Reason: mod pain Last Admin: 08/12/23 18:24 Dose: 2 mg Documented By: FE Multi-Ingred Medicated Throat [place] (Throat [place], Medicated 177 Ml Bottle) 1 spray MUCOUS MEM Q2H PRN PRN Reason: Throat pain Last Admin: 08/12/23 09:55 Dose: 1 spray Documented By: FE Ondansetron HCl (Ondansetron Hcl 4 Mg/2 Ml Vial) 4 mg IVPUSH Q8H PRN PRN Reason: Nausea and Vomiting Last Admin: 08/12/23 18:24 Dose: 4 mg Documented By: FE Pantoprazole Sodium (Pantoprazole Sodium 40 Mg/10 Ml Vial) 40 mg IVPUSH BID@0630,1630 [facility] Last Admin: 08/13/23 06:18 Dose: 40 mg Documented By: CHELSEA Sertraline HCl (Sertraline Hcl 50 Mg Tablet) 50 mg PO BID [facility] Last Admin: 08/13/23 08:09 Dose: 50 mg Documented By: CONSTANTINO Simethicone (Simethicone 80 Mg Tab.Chew) 80 mg PO QIDWMHS [facility] Last Admin: 08/13/23 11:18 Dose: Not Given Documented By: CONSTANTINO Non-Admin Reason: Previously Administered Sodium Chloride (0.9 % Sodium Chloride Flush 3 Ml Syringe) 3 ml IVFLUSH QSHIFT [facility] Last Admin: 08/13/23 08:09 Dose: 3 ml Documented By: CONSTANTINO Labs 08/12/23 06:03 08/13/23 06:13 Labs: Laboratory Results - last 24 hr 08/13/23 06:13 Anion Gap 14 Estim Creat Clear Calc 44.2 Estimated GFR > 60 Random Glucose 118 H Calcium 8.7 Assessment and Plan (1) Enteritis: Status: Acute (2) Abdominal pain: Status: Acute (3) SBO (small bowel obstruction): Status: Acute Plan 87F PMH severe , CAD s/p CABG, htn, cva january 2023 - no residual deficits, mood disorder, 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 Quality Stroke Does the patient have a stroke diagnosis?: No VTE Prior VTE?: No VTE Risk Level:: Medical - moderate - high VTE Device Contraindication: Treatment Not Indicated VTE Drug Contraindication: N/A - Med Ordered
[2023-08-13 15:13] VITALS: BP 136/94; PULSE 98; RESP 18; TEMP 36.6; O2SAT 94
--- NOTE | 2023-08-13 15:32 | HO.WOUND ---
Wound Consult: Initial 87yr old female admitted to [facility] on?08/08/23 22:18 - See progress notes and H&P for detailed history. Wound consult placed for Buttock assessment and Left heel - Patient agreeable to assessment of Bilateral Heels and buttocks and photo documentation. Buttocks - Intergluteal Etiology: MASD - Intertrigo (Moisture Associated Skin Damage) Measurements: 9cm x 0.3cm x 0.2cm Wound Bed: pink red moist wound bed along fold of buttocks Drainage / Odor: scant serous drainage no odor noted Edges: ? Linear and attached Do wound: ?No Induration, Fluctuance, or Warmth noted Pain: Pt denies pain Goals of Treatment: ? Moist wound healing and enhanced autolytic debridement with Triad - protect from friction and moisture Left Heel Etiology: Resurfaced pressure injury Wound Bed: Intact tissue with well defined old injury noted - tissue remains blanchable Drainage / Odor: None Do wound: ? Red defined bordered remains blanchable intact tissue No Induration, Fluctuance, Erythema, Warmth Pain: Pt denies pain Goals of Treatment: Off Load Pressure with foam and pillows Right Heel Intact ktissue remains blanchable Additionally dry adherent scab callus to right 3rd toe intact - no topical treatment needed at this time. Recommendations: 1. Turn and Reposition every 2 hours and as needed for patient comfort. 2. Off Load all bony prominences with use of pillows and heel boots. 3. Monitor for incontinence and moisture control. 4. Provide adequate and supplemental nutrition. 5. Order or Continue low air loss mattress. 6. Buttocks - Off Load Pressure - Cleanse with PH balances wipes or spray, pat dry. Apply thin layer of Triad to wound bed - only pat and dab no scrub and rub when soiling occurs. Reapply thin layer PRN after each episode of incontinence. 7. Bilateral Heels - Elevate heels off of surface of bed - preventative foams to be aplpied to protect from pressure and friction. Peel back and assess Q shift and change every 3 days and PRN. Re-consult wound care Nurse for wound deterioration
[2023-08-13] MEDS: Clopidogrel Bisulfate 75 MG TABLET PO (15:35)
[2023-08-13] MEDS: Simethicone 80 MG TAB.CHEW PO (15:36)
[2023-08-13] MEDS: Lactated Ringers 1,000 ML 125 ML IVCONT (15:59)
[2023-08-13 19:03] VITALS: BP 157/91; PULSE 104; RESP 18; TEMP 36.6; O2SAT 93
[2023-08-13] MEDS: ondansetron HCL 4 MG/2 ML VIAL IVPUSH (21:42)
[2023-08-13] MEDS: Morphine Sulfate 2 MG/ML CARTRIDGE IVPUSH (21:59)
[2023-08-14 04:00] VITALS: BP 148/89; PULSE 88; RESP 14; TEMP 36.5; O2SAT 95
[2023-08-14] MEDS: metroNIDAZOLE/NS 500 MG/100 ML PIGGYBACK 100 MG IV ×3 (05:04→20:49)
[2023-08-14 05:52] LABS: Hematocrit 33.1 % (37.0-47.0); Hemoglobin 10.9 g/dl (12.0-16.0); Mean Corpuscular HGB Conc 32.9 g/dl (31.0-35.0); Mean Corpuscular Hemoglobin 33.5 pg (27.0-33.0); Mean Corpuscular Volume 101.8 fL (80.0-98.0); Mean Platelet Volume 10.2 fL (9.4-12.3); Platelet Count 171 X10*3/uL (160-400); Red Blood Count 3.25 X10*6/uL (4.20-5.50); Red Cell Distribution Width 13.6 % (11.0-16.0); White Blood Count 12.4 X10*3/uL (4.8-10.8)
[2023-08-14] MEDS: Pantoprazole Sodium 40 MG/10 ML VIAL IVPUSH (06:01)
[2023-08-14 06:04] LABS: Anion Gap 14 (12-20); Blood Urea Nitrogen 27 mg/dL (9-16); Calcium 8.7 mg/dL (8.4-10.2); Carbon Dioxide 24 mmol/L (22-29); Chloride 105 mmol/L (96-108); Creatinine Clr Calc Pharmacy 44.2; Estimated Glomerular Filt Rate > 60; Glucose Random 126 mg/dL (60-115); Potassium 3.3 mmol/L (3.3-5.1); Sodium 140 mmol/L (135-145)
[2023-08-14 08:00] VITALS: BP 148/85; PULSE 105; RESP 16; TEMP 36.1; O2SAT 93
[2023-08-14] MEDS: amLODIPine Besylate 5 MG TABLET PO (09:04)
[2023-08-14] MEDS: Clopidogrel Bisulfate 75 MG TABLET PO (09:04)
[2023-08-14] MEDS: Sertraline HCL 50 MG TABLET PO (09:04)
[2023-08-14] MEDS: Dextrose 5 % and Lactated Ring 1,000 ML 100 ML IVCONT ×2 (09:04→20:49)
[2023-08-14] MEDS: Metoprolol Tartrate 50 MG TABLET PO (09:04)
[2023-08-14] MEDS: Mirtazapine 7.5 MG TABLET PO (09:04)
[2023-08-14] MEDS: Simethicone 80 MG TAB.CHEW PO (09:04)
--- NOTE | 2023-08-14 09:14 | P.PNIM_ITS ---
Subjective Subjective Date of Service: 08/14/23 Interval History: Seen and evaluated this morning No nausea or vomiting tolerating ice chips and water in larger amounts feels distended but passing gas Having small BM Review of Systems Review of Systems: Yes all other systems are reviewed and are negative Physical Exam 2 Vital Signs: Vital Signs: Last Vital Signs Temp 96.9 F 08/14/23 08:00 Pulse 105 H 08/14/23 08:00 Resp 16 08/14/23 08:00 BP 148/85 H 08/14/23 08:00 Pulse Ox 93 08/14/23 08:00 O2 Del Method Room Air 08/14/23 08:00 BMI result Body Mass Index 19.7 Const: Other: Constitutional : Awake, interactive, not in distress Neck : Normal inspection, Supple Cardiovascular : RRR, no JVP, systolic murmur, no lower extremity edema Respiratory : good bilateral air entry, no crackles, wheezes or rhonchi Gastrointestinal: soft, lax, normal bowel sounds, no tenderness with no surgical signs , mildly distended Skin : Warm, Dry Neurological : Alert & oriented x3, No focal deficit Objective Data Active Medications Amlodipine Besylate (Amlodipine Besylate 5 Mg Tablet) 5 mg PO DAILY [facility]; Protocol Last Admin: 08/14/23 09:04 Dose: 5 mg Documented By: REJI Atorvastatin Calcium (Atorvastatin Calcium 10 Mg Tablet) 10 mg PO BEDTIME [facility] Last Admin: 08/13/23 21:41 Dose: Not Given Documented By: IRIS Non-Admin Reason: Nausea Clopidogrel Bisulfate (Clopidogrel Bisulfate 75 Mg Tablet) 75 mg PO DAILY [facility] Last Admin: 08/14/23 09:04 Dose: 75 mg Documented By: REJI Enoxaparin Sodium (Enoxaparin Sodium 40 Mg/0.4 Ml Syringe) 40 mg SUBCUT Q24H [facility] Last Admin: 08/11/23 08:42 Dose: Not Given Documented By: FE Non-Admin Reason: Physician Held Med Metronidazole (Flagyl) 500 mg in 100 mls @ 100 mls/hr IV Q8H [facility] Last Infusion: 08/14/23 06:04 Dose: Infused Documented By: IRIS Dextrose/Lactated Ringer's (D5lr) 1,000 mls @ 100 mls/hr IVCONT .Q10H [facility] Stop: 08/14/23 22:00 Last Admin: 08/14/23 09:04 Dose: 100 mls/hr Documented By: REJI Metoprolol Tartrate (Metoprolol Tartrate 50 Mg Tablet) 50 mg PO BID [facility]; Protocol Last Admin: 08/14/23 09:04 Dose: 50 mg Documented By: REJI Mirtazapine (Mirtazapine 7.5 Mg Tablet) 7.5 mg PO BID [facility] Last Admin: 08/14/23 09:04 Dose: 7.5 mg Documented By: REJI Morphine Sulfate (Morphine Sulfate 2 Mg/Ml Cartridge) 2 mg IVPUSH Q3H PRN; Protocol PRN Reason: mod pain Last Admin: 08/13/23 21:59 Dose: 2 mg Documented By: IRIS Multi-Ingred Medicated Throat [place] (Throat [place], Medicated 177 Ml Bottle) 1 spray MUCOUS MEM Q2H PRN PRN Reason: Throat pain Last Admin: 08/12/23 09:55 Dose: 1 spray Documented By: FE Ondansetron HCl (Ondansetron Hcl 4 Mg/2 Ml Vial) 4 mg IVPUSH Q8H PRN PRN Reason: Nausea and Vomiting Last Admin: 08/13/23 21:42 Dose: 4 mg Documented By: IRIS Pantoprazole Sodium (Pantoprazole Sodium 40 Mg/10 Ml Vial) 40 mg IVPUSH BID@0630,1630 [facility] Last Admin: 08/14/23 06:01 Dose: 40 mg Documented By: IRIS Sertraline HCl (Sertraline Hcl 50 Mg Tablet) 50 mg PO BID [facility] Last Admin: 08/14/23 09:04 Dose: 50 mg Documented By: REJI Simethicone (Simethicone 80 Mg Tab.Chew) 80 mg PO QIDWMHS [facility] Last Admin: 08/14/23 09:04 Dose: 80 mg Documented By: REJI Sodium Chloride (0.9 % Sodium Chloride Flush 3 Ml Syringe) 3 ml IVFLUSH QSHIFT [facility] Last Admin: 08/14/23 00:35 Dose: Not Given Documented By: IRIS Non-Admin Reason: IV Running Labs 08/14/23 05:35 08/14/23 05:35 Labs: Laboratory Results - last 24 hr 08/14/23 05:35 MCV 101.8 H MCH 33.5 H MCHC 32.9 RDW 13.6 Plt Count 171 MPV 10.2 Absolute Nucleated RBC 0.000 Nucleated RBC % (auto) 0.0 Anion Gap 14 Estim Creat Clear Calc 44.2 Estimated GFR > 60 Random Glucose 126 H Calcium 8.7 Assessment and Plan (1) Enteritis: Status: Acute (2) Abdominal pain: Status: Acute Plan 87F PMH severe , CAD s/p CABG, htn, cva january 2023 - no residual deficits, mood disorder, 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 Quality Stroke Does the patient have a stroke diagnosis?: No VTE Prior VTE?: No VTE Risk Level:: Medical - moderate - high VTE Device Contraindication: Treatment Not Indicated VTE Drug Contraindication: N/A - Med Ordered
[2023-08-14] MEDS: 0.9 % Sodium Chloride Flush 3 ML SYRINGE IVFLUSH (09:15)
--- NOTE | 2023-08-14 14:33 | PM.PNGS ---
Subjective Subjective Date of Service: 08/16/23 Interval history: Poor oral intake Has flatus as per staff Denies abdominal pain No vomiting Physical Exam Vital Signs: Vital Signs: Last Vital Signs Temp 96.9 F 08/14/23 08:00 Pulse 105 H 08/14/23 08:00 Resp 16 08/14/23 08:00 BP 148/85 H 08/14/23 08:00 Pulse Ox 93 08/14/23 08:00 O2 Del Method Room Air 08/14/23 08:00 BMI result Body Mass Index 19.7 Const: Other: Sleepy, sitting up on recliner General: no acute distress Resp: Effort & Inspection: normal respiratory effort Cardio: Rhythm: regular rhythm GI: Other: Globular but soft, no guarding, no rebound, no obvious tenderness Objective Data Active Medications Amlodipine Besylate (Amlodipine Besylate 5 Mg Tablet) 5 mg PO DAILY [facility]; Protocol Last Admin: 08/14/23 09:04 Dose: 5 mg Documented By: REJI Atorvastatin Calcium (Atorvastatin Calcium 10 Mg Tablet) 10 mg PO BEDTIME [facility] Last Admin: 08/13/23 21:41 Dose: Not Given Documented By: IRIS Non-Admin Reason: Nausea Clopidogrel Bisulfate (Clopidogrel Bisulfate 75 Mg Tablet) 75 mg PO DAILY [facility] Last Admin: 08/14/23 09:04 Dose: 75 mg Documented By: REJI Enoxaparin Sodium (Enoxaparin Sodium 40 Mg/0.4 Ml Syringe) 40 mg SUBCUT Q24H [facility] Last Admin: 08/11/23 08:42 Dose: Not Given Documented By: FE Non-Admin Reason: Physician Held Med Metronidazole (Flagyl) 500 mg in 100 mls @ 100 mls/hr IV Q8H [facility] Last Infusion: 08/14/23 14:13 Dose: Infused Documented By: REJI Dextrose/Lactated Ringer's (D5lr) 1,000 mls @ 100 mls/hr IVCONT .Q10H [facility] Stop: 08/14/23 22:00 Last Admin: 08/14/23 09:04 Dose: 100 mls/hr Documented By: REJI Metoprolol Tartrate (Metoprolol Tartrate 50 Mg Tablet) 50 mg PO BID [facility]; Protocol Last Admin: 08/14/23 09:04 Dose: 50 mg Documented By: REJI Mirtazapine (Mirtazapine 7.5 Mg Tablet) 7.5 mg PO BID [facility] Last Admin: 08/14/23 09:04 Dose: 7.5 mg Documented By: REJI Morphine Sulfate (Morphine Sulfate 2 Mg/Ml Cartridge) 2 mg IVPUSH Q3H PRN; Protocol PRN Reason: mod pain Last Admin: 08/13/23 21:59 Dose: 2 mg Documented By: IRIS Multi-Ingred Medicated Throat [place] (Throat [place], Medicated 177 Ml Bottle) 1 spray MUCOUS MEM Q2H PRN PRN Reason: Throat pain Last Admin: 08/12/23 09:55 Dose: 1 spray Documented By: FE Ondansetron HCl (Ondansetron Hcl 4 Mg/2 Ml Vial) 4 mg IVPUSH Q8H PRN PRN Reason: Nausea and Vomiting Last Admin: 08/13/23 21:42 Dose: 4 mg Documented By: IRIS Pharmacy Consult (Consult Rx Parenteral Nutrition Ordering) 1 each MISCELLANE DAILY PRN PRN Reason: Consult order Sertraline HCl (Sertraline Hcl 50 Mg Tablet) 50 mg PO BID [facility] Last Admin: 08/14/23 09:04 Dose: 50 mg Documented By: REJI Simethicone (Simethicone 80 Mg Tab.Chew) 80 mg PO QIDWMHS [facility] Last Admin: 08/14/23 13:01 Dose: Not Given Documented By: REJI Non-Admin Reason: Patient Refused Sodium Chloride (0.9 % Sodium Chloride Flush 3 Ml Syringe) 3 ml IVFLUSH QSHIFT [facility] Last Admin: 08/14/23 09:15 Dose: 3 ml Documented By: REJI Labs 08/16/23 05:54 08/16/23 05:54 Labs: Laboratory Results - last 24 hr 08/14/23 05:35 MCV 101.8 H MCH 33.5 H MCHC 32.9 RDW 13.6 Plt Count 171 MPV 10.2 Absolute Nucleated RBC 0.000 Nucleated RBC % (auto) 0.0 Anion Gap 14 Estim Creat Clear Calc 44.2 Estimated GFR > 60 Random Glucose 126 H Calcium 8.7 Procedures Date of Service Date of Service: 08/16/23 Progress Note: A&P Assessment and plan (1) Enteritis: Status: Acute Assessment and Plan: Continues to have poor oral intake Exam remains benign Abdomen however seems distended although soft Consider follow-up CT scan Appears to be very frail TPN Time Spent With Patient Time: Total time managing care of this patient today ____ minutes. Quality Stroke Does the patient have a stroke diagnosis?: No VTE Prior VTE?: No VTE Risk Level:: Medical - moderate - high VTE Device Contraindication: Treatment Not Indicated VTE Drug Contraindication: N/A - Med Ordered
[2023-08-14 15:10] VITALS: BP 138/93; PULSE 95; RESP 18; TEMP 36.1; O2SAT 96
[2023-08-14] MEDS: ondansetron HCL 4 MG/2 ML VIAL IVPUSH ×2 (15:40→21:55)
[2023-08-14] MEDS: iohexoL 350 MG/ML 100 ML INFUS..BTL 85 ML IV (16:47)
--- NOTE | 2023-08-14 18:42 | PC.NURSE ---
Pt A&OX4. OWEN with generalized weakness OOB to chair in am. Initially denies nausea this am states I'm feeling much better than yesterday . Later in shift c/o nausea IV zofran given. Pt c/o increased secretions able to self suction as needed, coughs with liquids and meds occasionally. Dr Mcrae notified ST consult placed. IV fluids initiated per order. Pureiwck in place with dark concentrated urine. Off unit in afternoon for CT abdomen. Order placed for NG tube for suction NPO at this time. Pt refusing tube placement at this time. Pt educated on need for NG tube risks or not providing treatment at this time. Encouragement provided pt will take some time to make a decision. Dr Mcrae notified. Will continue to monitor and report changes
[2023-08-14 20:00] VITALS: BP 129/96; PULSE 97; RESP 18; TEMP 36.3; O2SAT 96
[2023-08-15] MEDS: Morphine Sulfate 2 MG/ML CARTRIDGE IVPUSH (00:35)
[2023-08-15 04:00] VITALS: BP 126/84; PULSE 99; RESP 14; TEMP 36.2; O2SAT 96
[2023-08-15] MEDS: metroNIDAZOLE/NS 500 MG/100 ML PIGGYBACK 100 MG IV ×3 (04:32→19:52)
--- NOTE | 2023-08-15 05:26 | PC.NURSE ---
Throughout shift, pt c/o of n/v with abdomen distended and firm. This RN was made aware of the NGT order from previous RN from AM shift. This RN educated the pt about the importance of the NGT and how it will help with the pt's symptoms. This RN, nursing supervisor [place] Maura , and [place] RN attempted 3 times to insert NGT but no success. The pt became upset and didn't want us to try again. MD Marquez was notified of the situation and how the pt refused the NGT after the attempts. Will continue to monitor the pt's symptoms and reinforced the pt about the importance of the NGT.
[2023-08-15 06:58] LABS: Hematocrit 33.9 % (37.0-47.0); Hemoglobin 11.3 g/dl (12.0-16.0); Mean Corpuscular HGB Conc 33.3 g/dl (31.0-35.0); Mean Corpuscular Hemoglobin 33.7 pg (27.0-33.0); Mean Corpuscular Volume 101.2 fL (80.0-98.0); Mean Platelet Volume 10.4 fL (9.4-12.3); Platelet Count 173 X10*3/uL (160-400); Red Blood Count 3.35 X10*6/uL (4.20-5.50); Red Cell Distribution Width 13.7 % (11.0-16.0); White Blood Count 12.3 X10*3/uL (4.8-10.8)
[2023-08-15 07:03] VITALS: BP 147/97; PULSE 76; RESP 16; TEMP 36.3; O2SAT 97
[2023-08-15 07:16] LABS: Albumin Level 3.3 g/dL (3.5-5.0); Anion Gap 13 (12-20); Blood Urea Nitrogen 26 mg/dL (9-16); Calcium 8.7 mg/dL (8.4-10.2); Carbon Dioxide 26 mmol/L (22-29); Chloride 106 mmol/L (96-108); Creatinine Clr Calc Pharmacy 37.7; Estimated Glomerular Filt Rate > 60; Glucose Random 168 mg/dL (60-115); Phosphorus 2.9 mg/dL (2.7-4.5); Potassium 3.2 mmol/L (3.3-5.1); Sodium 142 mmol/L (135-145)
--- NOTE | 2023-08-15 08:37 | PM.PNGS ---
Subjective Subjective Date of Service: 08/16/23 Interval history: Denies abdominal pain Describes some nausea No events reported overnight Poor oral intake yesterday Seems to be very frail Physical Exam Vital Signs: Vital Signs: Last Vital Signs Temp 97.4 F 08/15/23 07:03 Pulse 76 08/15/23 07:03 Resp 16 08/15/23 07:03 BP 147/97 H 08/15/23 07:03 Pulse Ox 97 08/15/23 07:03 O2 Del Method Room Air 08/15/23 07:03 BMI result Body Mass Index 19.7 Const: Other: Frail looking General: no acute distress Resp: Effort & Inspection: normal respiratory effort Cardio: Rate: regular rate GI: Other: Distended, rounded but soft, no guarding, no rebound, no significant tenderness Objective Data Active Medications Amlodipine Besylate (Amlodipine Besylate 5 Mg Tablet) 5 mg PO DAILY REPLACED BY [facility]; Protocol Last Admin: 08/14/23 09:04 Dose: 5 mg Documented By: REJI Atorvastatin Calcium (Atorvastatin Calcium 10 Mg Tablet) 10 mg PO BEDTIME REPLACED BY [facility] Last Admin: 08/14/23 20:52 Dose: Not Given Documented By: IRIS Non-Admin Reason: Patient Refused Clopidogrel Bisulfate (Clopidogrel Bisulfate 75 Mg Tablet) 75 mg PO DAILY REPLACED BY [facility] Last Admin: 08/14/23 09:04 Dose: 75 mg Documented By: REJI Enoxaparin Sodium (Enoxaparin Sodium 40 Mg/0.4 Ml Syringe) 40 mg SUBCUT Q24H REPLACED BY [facility] Last Admin: 08/11/23 08:42 Dose: Not Given Documented By: FE Non-Admin Reason: Physician Held Med Metronidazole (Flagyl) 500 mg in 100 mls @ 100 mls/hr IV Q8H REPLACED BY [facility] Last Infusion: 08/15/23 05:33 Dose: Infused Documented By: IRIS Metoprolol Tartrate (Metoprolol Tartrate 50 Mg Tablet) 50 mg PO BID REPLACED BY [facility]; Protocol Last Admin: 08/14/23 20:52 Dose: Not Given Documented By: IRIS Non-Admin Reason: Patient Refused Mirtazapine (Mirtazapine 7.5 Mg Tablet) 7.5 mg PO BID REPLACED BY [facility] Last Admin: 08/14/23 20:52 Dose: Not Given Documented By: IRIS Non-Admin Reason: Patient Refused Morphine Sulfate (Morphine Sulfate 2 Mg/Ml Cartridge) 2 mg IVPUSH Q3H PRN; Protocol PRN Reason: mod pain Last Admin: 08/15/23 00:35 Dose: 2 mg Documented By: IRIS Multi-Ingred Medicated Throat [place] (Throat [place], Medicated 177 Ml Bottle) 1 spray MUCOUS MEM Q2H PRN PRN Reason: Throat pain Last Admin: 08/12/23 09:55 Dose: 1 spray Documented By: FE Ondansetron HCl (Ondansetron Hcl 4 Mg/2 Ml Vial) 4 mg IVPUSH Q8H PRN PRN Reason: Nausea and Vomiting Last Admin: 08/14/23 21:55 Dose: 4 mg Documented By: IRIS Pharmacy Consult (Consult Rx Parenteral Nutrition Ordering) 1 each MISCELLANE DAILY PRN PRN Reason: Consult order Sertraline HCl (Sertraline Hcl 50 Mg Tablet) 50 mg PO BID REPLACED BY [facility] Last Admin: 08/14/23 20:52 Dose: Not Given Documented By: IRIS Non-Admin Reason: Patient Refused Simethicone (Simethicone 80 Mg Tab.Chew) 80 mg PO QIDWMHS REPLACED BY [facility] Last Admin: 08/14/23 20:52 Dose: Not Given Documented By: IRIS Non-Admin Reason: Patient Refused Sodium Chloride (0.9 % Sodium Chloride Flush 3 Ml Syringe) [facility] Last Admin: 08/15/23 00:34 Dose: Not Given Documented By: IRIS Non-Admin Reason: IV Running Labs 08/16/23 05:54 08/16/23 05:54 Labs: Laboratory Results - last 24 hr 08/15/23 06:47 MCV 101.2 H MCH 33.7 H MCHC 33.3 RDW 13.7 Plt Count 173 MPV 10.4 Absolute Nucleated RBC 0.000 Nucleated RBC % (auto) 0.0 Anion Gap 13 Estim Creat Clear Calc 37.7 Estimated GFR > 60 Random Glucose 168 H Calcium 8.7 Phosphorus 2.9 Magnesium 2.0 Albumin 3.3 L Procedures Date of Service Date of Service: 08/16/23 Progress Note: A&P Assessment and plan (1) SBO (small bowel obstruction): Status: Acute Assessment and Plan: Follow-up CT scan suggestive of partial small-bowel obstruction distally Consider small bowel series with Gastrografin Abdomen remained soft and benign NPO temporarily TPN Will follow Replace potassium Time Spent With Patient Time: Total time managing care of this patient today ____ minutes. Quality Stroke Does the patient have a stroke diagnosis?: No VTE Prior VTE?: No VTE Risk Level:: Medical - moderate - high VTE Device Contraindication: Treatment Not Indicated VTE Drug Contraindication: N/A - Med Ordered
--- NOTE | 2023-08-15 10:25 | P.PNIM_ITS ---
Subjective Subjective Date of Service: 08/15/23 Interval History: Seen and evaluated this morning having nausea or vomiting and feeling distended tolerating ice chips but using suction not passing gas but had small BM CT scan showed worsened fluid filled small bowels Review of Systems Review of Systems: Yes all other systems are reviewed and are negative Physical Exam 2 Vital Signs: Vital Signs: Last Vital Signs Temp 97.4 F 08/15/23 07:03 Pulse 76 08/15/23 07:03 Resp 16 08/15/23 07:03 BP 147/97 H 08/15/23 07:03 Pulse Ox 97 08/15/23 07:03 O2 Del Method Room Air 08/15/23 07:03 BMI result Body Mass Index 19.7 Const: Other: Constitutional : Awake, interactive, not in distress Neck : Normal inspection, Supple Cardiovascular : RRR, no JVP, systolic murmur, no lower extremity edema Respiratory : good bilateral air entry, no crackles, wheezes or rhonchi Gastrointestinal: soft, lax, normal bowel sounds, no tenderness with no surgical signs , moderatly distended Skin : Warm, Dry Neurological : Alert & oriented x3, No focal deficit Objective Data Active Medications Amlodipine Besylate (Amlodipine Besylate 5 Mg Tablet) 5 mg PO DAILY [facility]; Protocol Last Admin: 08/15/23 10:22 Dose: Not Given Documented By: [place]INA Non-Admin Reason: NPO Atorvastatin Calcium (Atorvastatin Calcium 10 Mg Tablet) 10 mg PO BEDTIME [facility] Last Admin: 08/14/23 20:52 Dose: Not Given Documented By: IRIS Non-Admin Reason: Patient Refused Clopidogrel Bisulfate (Clopidogrel Bisulfate 75 Mg Tablet) 75 mg PO DAILY [facility] Last Admin: 08/14/23 09:04 Dose: 75 mg Documented By: REJI Enoxaparin Sodium (Enoxaparin Sodium 40 Mg/0.4 Ml Syringe) 40 mg SUBCUT Q24H [facility] Last Admin: 08/15/23 10:22 Dose: Not Given Documented By: [place] Non-Admin Reason: NPO Metronidazole (Flagyl) 500 mg in 100 mls @ 100 mls/hr IV Q8H [facility] Last Infusion: 08/15/23 05:33 Dose: Infused Documented By: IRIS Potassium Chloride (Potassium Chloride/H20) 10 meq in 100 mls @ 100 mls/hr IV ONCE ONE Stop: 08/15/23 10:52 Metoprolol Tartrate (Metoprolol Tartrate 50 Mg Tablet) 50 mg PO BID [facility]; Protocol Last Admin: 08/15/23 10:22 Dose: Not Given Documented By: [place] Non-Admin Reason: NPO Mirtazapine (Mirtazapine 7.5 Mg Tablet) 7.5 mg PO BID [facility] Last Admin: 08/15/23 10:22 Dose: Not Given Documented By: [place] Non-Admin Reason: NPO Morphine Sulfate (Morphine Sulfate 2 Mg/Ml Cartridge) 2 mg IVPUSH Q3H PRN; Protocol PRN Reason: mod pain Last Admin: 08/15/23 00:35 Dose: 2 mg Documented By: IRIS Multi-Ingred Medicated Throat [place] (Throat [place], Medicated 177 Ml Bottle) 1 spray MUCOUS MEM Q2H PRN PRN Reason: Throat pain Last Admin: 08/12/23 09:55 Dose: 1 spray Documented By: FE Ondansetron HCl (Ondansetron Hcl 4 Mg/2 Ml Vial) 4 mg IVPUSH Q8H PRN PRN Reason: Nausea and Vomiting Last Admin: 08/14/23 21:55 Dose: 4 mg Documented By: IRIS Pharmacy Consult (Consult Rx Parenteral Nutrition Ordering) 1 each MISCELLANE DAILY PRN PRN Reason: Consult order Sertraline HCl (Sertraline Hcl 50 Mg Tablet) 50 mg PO BID [facility] Last Admin: 08/15/23 10:22 Dose: Not Given Documented By: [place] Non-Admin Reason: NPO Simethicone (Simethicone 80 Mg Tab.Chew) 80 mg PO QIDWMHS [facility] Last Admin: 08/15/23 10:22 Dose: Not Given Documented By: [place] Non-Admin Reason: NPO Sodium Chloride (0.9 % Sodium Chloride Flush 3 Ml Syringe) 3 ml IVFLUSH QSHIFT [facility] Last Admin: 08/15/23 10:22 Dose: Not Given Documented By: [place] Non-Admin Reason: IV Running Labs 08/15/23 06:47 08/15/23 06:47 Labs: Laboratory Results - last 24 hr 08/15/23 06:47 MCV 101.2 H MCH 33.7 H MCHC 33.3 RDW 13.7 Plt Count 173 MPV 10.4 Absolute Nucleated RBC 0.000 Nucleated RBC % (auto) 0.0 Anion Gap 13 Estim Creat Clear Calc 37.7 Estimated GFR > 60 Random Glucose 168 H Calcium 8.7 Phosphorus 2.9 Magnesium 2.0 Albumin 3.3 L Assessment and Plan (1) Enteritis: Status: Acute (2) SBO (small bowel obstruction): Status: Acute Plan 87F PMH severe , CAD s/p CABG, htn, cva january 2023 - no residual deficits, mood disorder, 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, presented with abd pain Abdominal pain 2/2 functional SBO vs GastroEnter[address] CT scan 08/14 showing dilated fluid filled small bowels w distal small bowels not dilated, question transition point in RLQ IVF Flagyl IV pain control Place NG tube FL abdominal series with Gastrographin today NPO Surgery input appreciated, GI series severe monitor closely while on fluids CAD, history of cva restart Plavix continue statin htn amldoipine metoprolol mood disorder zoloft dvt prophylaxis - lovenox DNR/DNI The patient will need overnight hospital stay for treatment of enteritis\SBO pending clinical improvement and possible surgical intervention Quality Stroke Does the patient have a stroke diagnosis?: No VTE Prior VTE?: No VTE Risk Level:: Medical - moderate - high VTE Device Contraindication: Treatment Not Indicated VTE Drug Contraindication: N/A - Med Ordered
--- NOTE | 2023-08-15 10:44 | MHC.SLORD ---
Speech Language Pathology Order Status: Received order for SLEEVE SETTER SAFETY STITCH swallow eval. Pt currently NPO d/t SBO. Per MD, SLEEVE SETTER SAFETY STITCH to hold swallow eval until tomorrow d/t general deconditioning.
--- NOTE | 2023-08-15 11:14 | MHC.CLN ---
Addendum entered by Debra Sierra RD 08/15/23 12:31: PPN STARTING RATE: 30 ML PER HOUR; 72 G DEXTROSE; 31 G PROTEIN; 367 KCALS. REPLETE LYTES NEEDED. CHECK TRIGLYCERIDES. Original Note: NUTRITION PATIENT WITH SBO. TODAY IS DAY 8 OF NPO OR CLEAR LIQUIDS. STARTING PPN TODAY. LABS REVIEWED, COMMUNICATED WITH MD AND PHARMACY. RECOMMEND START PPN AT 30 ML PER HOUR, 72 G DEXTROSE, 31 G PROTEIN. SEE CLINICAL NUTRITION ASSESSMENT.
[2023-08-15] MEDS: Potassium Chloride/H20 10 MEQ/100 ML PIGGYBACK 100 MEQ IV (12:12)
[2023-08-15 12:34] VITALS: BMI 19.7
--- NOTE | 2023-08-15 12:39 | MHC.CM.PN ---
Per MD rounds no discharge today. Patient is not medically cleared. [facility] facility vs [facility]. Family vs BLS transport.
--- NOTE | 2023-08-15 13:32 | PM.EVENT ---
Event Note Date of Service: 08/15/23 Event Note: Seen multiple times today I have asked her to see if I can attempt putting the NG tube in She has been refusing Abdomen remains distended but soft She says she does not want anything invasive I have updated her son Liban The patient appears to be oriented and competent I will continue to follow Time Spent With Patient Time: Total time managing care of this patient today ____ minutes.
[2023-08-15 15:50] VITALS: BP 120/74; PULSE 119; RESP 17; TEMP 36.6; O2SAT 93
[2023-08-15] MEDS: 0.9 % Sodium Chloride Flush 3 ML SYRINGE IVFLUSH (19:52)
[2023-08-15 20:00] VITALS: BP 123/80; PULSE 57; RESP 17; TEMP 36.9; O2SAT 92
[2023-08-15] MEDS: ondansetron HCL 4 MG/2 ML VIAL IVPUSH (20:06)
[2023-08-15] MEDS: Parenteral Nutrition 720 ML 30 ML IV (21:08)
[2023-08-16] MEDS: metroNIDAZOLE/NS 500 MG/100 ML PIGGYBACK 100 MG IV ×3 (03:45→21:06)
[2023-08-16 04:00] VITALS: BP 139/98; PULSE 113; RESP 14; TEMP 36.2; O2SAT 94
[2023-08-16 06:37] LABS: Hemoglobin 11.8 g/dl (12.0-16.0); Mean Corpuscular HGB Conc 33.7 g/dl (31.0-35.0); Mean Corpuscular Hemoglobin 33.8 pg (27.0-33.0); Mean Corpuscular Volume 100.3 fL (80.0-98.0); Mean Platelet Volume 10.8 fL (9.4-12.3); Platelet Count 162 X10*3/uL (160-400); Red Blood Count 3.49 X10*6/uL (4.20-5.50); Red Cell Distribution Width 14.1 % (11.0-16.0)
[2023-08-16 06:46] LABS: Anion Gap 15 (12-20); Blood Urea Nitrogen 28 mg/dL (9-16); Carbon Dioxide 28 mmol/L (22-29); Chloride 106 mmol/L (96-108); Creatinine Clr Calc Pharmacy 39.1; Estimated Glomerular Filt Rate > 60; Glucose Random 150 mg/dL (60-115); Potassium 3.7 mmol/L (3.3-5.1); Sodium 145 mmol/L (135-145); Triglycerides 48 mg/dL (<150)
[2023-08-16 06:54] LABS: Albumin Level 3.3 g/dL (3.5-5.0); Anion Gap 14 (12-20); Blood Urea Nitrogen 28 mg/dL (9-16); Carbon Dioxide 29 mmol/L (22-29); Chloride 106 mmol/L (96-108); Creatinine Clr Calc Pharmacy 38.7; Estimated Glomerular Filt Rate > 60; Glucose Random 149 mg/dL (60-115); Magnesium 2.1 mg/dL (1.6-2.6); Phosphorus 3.1 mg/dL (2.7-4.5); Potassium 3.7 mmol/L (3.3-5.1); Sodium 145 mmol/L (135-145)
[2023-08-16 07:08] VITALS: BP 136/98; PULSE 104; RESP 16; TEMP 36.7; O2SAT 93
[2023-08-16 08:00] VITALS: RESP 16
[2023-08-16] MEDS: Morphine Sulfate 2 MG/ML CARTRIDGE IVPUSH ×3 (08:00→22:17)
--- NOTE | 2023-08-16 08:25 | P.PNGS_ITS ---
Subjective Subjective Date of Service: 08/16/23 Interval history: Complaining of pain and nausea Continues to refuse NG tube placement Physical Exam 2 Vital Signs: Vital Signs: Last Vital Signs Temp 98.1 F 08/16/23 07:08 Pulse 104 H 08/16/23 07:08 Resp 16 08/16/23 08:00 BP 136/98 H 08/16/23 07:08 Pulse Ox 93 08/16/23 07:08 O2 Del Method Room Air 08/16/23 07:08 BMI result Body Mass Index 19.7 Const: Orientation/consciousness: patient oriented x3 Resp: Effort & Inspection: normal respiratory effort Cardio: Rate: regular rate GI: Other: Distended, globular, some tenderness diffusely Palpation (GI): Soft to palpation Neuro: General: patient oriented x3 Objective Data Active Medications Amlodipine Besylate (Amlodipine Besylate 5 Mg Tablet) 5 mg PO DAILY [facility]; Protocol Last Admin: 08/16/23 08:04 Dose: Not Given Documented By: CHINA Non-Admin Reason: NPO Atorvastatin Calcium (Atorvastatin Calcium 10 Mg Tablet) 10 mg PO BEDTIME [facility] Last Admin: 08/15/23 20:22 Dose: Not Given Documented By: OBEY Non-Admin Reason: Patient Refused Clopidogrel Bisulfate (Clopidogrel Bisulfate 75 Mg Tablet) 75 mg PO DAILY [facility] Last Admin: 08/14/23 09:04 Dose: 75 mg Documented By: REJI Enoxaparin Sodium (Enoxaparin Sodium 40 Mg/0.4 Ml Syringe) 40 mg SUBCUT Q24H [facility] Last Admin: 08/15/23 10:22 Dose: Not Given Documented By: CHINA Non-Admin Reason: NPO Metronidazole (Flagyl) 500 mg in 100 mls @ 100 mls/hr IV Q8H [facility] Last Infusion: 08/16/23 05:08 Dose: Infused Documented By: OBEY Nutrition (Parenteral) (Parenteral Nutrition) 720 mls @ 30 mls/hr IV .Q24H [facility]; Protocol Stop: 08/16/23 20:59 Last Admin: 08/15/23 21:08 Dose: 30 mls/hr Documented By: OBEY Metoprolol Tartrate (Metoprolol Tartrate 50 Mg Tablet) 50 mg PO BID [facility]; Protocol Last Admin: 08/16/23 08:04 Dose: Not Given Documented By: CHINA Non-Admin Reason: NPO Mirtazapine (Mirtazapine 7.5 Mg Tablet) 7.5 mg PO BID [facility] Last Admin: 08/16/23 08:04 Dose: Not Given Documented By: CHINA Non-Admin Reason: NPO Morphine Sulfate (Morphine Sulfate 2 Mg/Ml Cartridge) 2 mg IVPUSH Q3H PRN; Protocol PRN Reason: mod pain Last Admin: 08/16/23 08:00 Dose: 2 mg Documented By: CHINA Multi-Ingred Medicated Throat [place] (Throat [place], Medicated 177 Ml Bottle) 1 spray MUCOUS MEM Q2H PRN PRN Reason: Throat pain Last Admin: 08/12/23 09:55 Dose: 1 spray Documented By: FE Ondansetron HCl (Ondansetron Hcl 4 Mg/2 Ml Vial) 4 mg IVPUSH Q8H PRN PRN Reason: Nausea and Vomiting Last Admin: 08/15/23 20:06 Dose: 4 mg Documented By: OBEY Pharmacy Consult (Consult Rx Parenteral Nutrition Ordering) 1 each MISCELLANE DAILY PRN PRN Reason: Consult order Sertraline HCl (Sertraline Hcl 50 Mg Tablet) 50 mg PO BID [facility] Last Admin: 08/16/23 08:04 Dose: Not Given Documented By: CHINA Non-Admin Reason: NPO Simethicone (Simethicone 80 Mg Tab.Chew) 80 mg PO QIDWMHS [facility] Last Admin: 08/16/23 08:04 Dose: Not Given Documented By: [place]INA Non-Admin Reason: NPO Sodium Chloride (0.9 % Sodium Chloride Flush 3 Ml Syringe) 3 ml IVFLUSH QSHIFT [facility] Last Admin: 08/16/23 08:03 Dose: Not Given Documented By: CHINA Non-Admin Reason: IV Running Labs 08/16/23 05:54 08/16/23 05:54 Labs: Laboratory Results - last 24 hr 08/16/23 08/16/23 08/16/23 05:54 05:54 05:54 MCV 100.3 H MCH 33.8 H MCHC 33.7 RDW 14.1 Plt Count 162 MPV 10.8 Absolute Nucleated RBC 0.000 Nucleated RBC % (auto) 0.0 Anion Gap 14 15 Estim Creat Clear Calc 38.7 39.1 Estimated GFR > 60 Random Glucose Calcium Phosphorus Magnesium Albumin Triglycerides 08/16/23 08/16/23 08/16/23 05:54 05:54 05:54 MCV MCH MCHC RDW Plt Count MPV Absolute Nucleated RBC Nucleated RBC % (auto) Anion Gap Estim Creat Clear Calc Estimated GFR > 60 Random Glucose 149 H 150 H Calcium 9.0 9.0 Phosphorus 3.1 Magnesium 2.1 Albumin 3.3 L Triglycerides 48 Procedures Date of Service Date of Service: 08/16/23 Progress Note: A&P Assessment and plan (1) SBO (small bowel obstruction): Status: Acute Assessment and Plan: Follow-up CT scan had suggested partial small-bowel obstruction distally Patient now refusing NG tube placement Does not want any invasive intervention I have discussed the above with his son Need to discuss alternate level of care Son J Carlos updated today Time Spent With Patient Time: Total time managing care of this patient today ____ minutes. Quality Stroke Does the patient have a stroke diagnosis?: No VTE Prior VTE?: No VTE Risk Level:: Medical - moderate - high VTE Device Contraindication: Treatment Not Indicated VTE Drug Contraindication: N/A - Med Ordered
--- NOTE | 2023-08-16 09:26 | MHC.SLORD ---
Speech Language Pathology Order Status: Per MD, MAKING [employer] WORKER swallow eval to be deferred d/t SBO. MAKING [employer] WORKER to continue to follow.
--- NOTE | 2023-08-16 09:43 | HO.PM.IMPN ---
Subjective Subjective Date of Service: 08/16/23 Interval History: didnt tolerate ngt, stillbloated in pain, nauseous, does not want ngt Physical Exam Vital Signs: Vital Signs: Last Vital Signs Temp 98.1 F 08/16/23 07:08 Pulse 104 H 08/16/23 07:08 Resp 16 08/16/23 08:00 BP 136/98 H 08/16/23 07:08 Pulse Ox 93 08/16/23 07:08 O2 Del Method Room Air 08/16/23 07:08 BMI result Body Mass Index 19.7 Const: Orientation/consciousness: patient oriented x3 Resp: Effort & Inspection: normal respiratory effort Cardio: Rate: regular rate GI: Other: Distended, globular, some tenderness diffusely Palpation (GI): Soft to palpation Neuro: General: patient oriented x3 Objective Data Active Medications Amlodipine Besylate (Amlodipine Besylate 5 Mg Tablet) 5 mg PO DAILY [facility]; Protocol Last Admin: 08/16/23 08:04 Dose: Not Given Documented By: [place] Non-Admin Reason: NPO Atorvastatin Calcium (Atorvastatin Calcium 10 Mg Tablet) 10 mg PO BEDTIME [facility] Last Admin: 08/15/23 20:22 Dose: Not Given Documented By: OBEY Non-Admin Reason: Patient Refused Clopidogrel Bisulfate (Clopidogrel Bisulfate 75 Mg Tablet) 75 mg PO DAILY [facility] Last Admin: 08/14/23 09:04 Dose: 75 mg Documented By: REJI Enoxaparin Sodium (Enoxaparin Sodium 40 Mg/0.4 Ml Syringe) 40 mg SUBCUT Q24H [facility] Last Admin: 08/15/23 10:22 Dose: Not Given Documented By: [place] Non-Admin Reason: NPO Metronidazole (Flagyl) 500 mg in 100 mls @ 100 mls/hr IV Q8H [facility] Last Infusion: 08/16/23 05:08 Dose: Infused Documented By: OBEY Nutrition (Parenteral) (Parenteral Nutrition) 720 mls @ 30 mls/hr IV .Q24H [facility]; Protocol Stop: 08/16/23 20:59 Last Admin: 08/15/23 21:08 Dose: 30 mls/hr Documented By: OBEY Metoprolol Tartrate (Metoprolol Tartrate 50 Mg Tablet) 50 mg PO BID [facility]; Protocol Last Admin: 08/16/23 08:04 Dose: Not Given Documented By: [place] Non-Admin Reason: NPO Mirtazapine (Mirtazapine 7.5 Mg Tablet) 7.5 mg PO BID [facility] Last Admin: 08/16/23 08:04 Dose: Not Given Documented By: [place] Non-Admin Reason: NPO Morphine Sulfate (Morphine Sulfate 2 Mg/Ml Cartridge) 2 mg IVPUSH Q3H PRN; Protocol PRN Reason: mod pain Last Admin: 08/16/23 08:00 Dose: 2 mg Documented By: [place] Multi-Ingred Medicated Throat [place] (Throat [place], Medicated 177 Ml Bottle) 1 spray MUCOUS MEM Q2H PRN PRN Reason: Throat pain Last Admin: 08/12/23 09:55 Dose: 1 spray Documented By: FE Ondansetron HCl (Ondansetron Hcl 4 Mg/2 Ml Vial) 4 mg IVPUSH Q8H PRN PRN Reason: Nausea and Vomiting Last Admin: 08/15/23 20:06 Dose: 4 mg Documented By: OBEY Pharmacy Consult (Consult Rx Parenteral Nutrition Ordering) 1 each MISCELLANE DAILY PRN PRN Reason: Consult order Sertraline HCl (Sertraline Hcl 50 Mg Tablet) 50 mg PO BID [facility] Last Admin: 08/16/23 08:04 Dose: Not Given Documented By: CH[place] Non-Admin Reason: NPO Simethicone (Simethicone 80 Mg Tab.Chew) 80 mg PO QIDWMHS [facility] Last Admin: 08/16/23 08:04 Dose: Not Given Documented By: HCINA Non-Admin Reason: NPO Sodium Chloride (0.9 % Sodium Chloride Flush 3 Ml Syringe) 3 ml IVFLUSH QSHIFT [facility] Last Admin: 08/16/23 08:03 Dose: Not Given Documented By: CHINA Non-Admin Reason: IV Running Labs 08/16/23 05:54 08/16/23 05:54 Labs: Laboratory Results - last 24 hr 08/16/23 08/16/23 08/16/23 05:54 05:54 05:54 MCV 100.3 H MCH 33.8 H MCHC 33.7 RDW 14.1 Plt Count 162 MPV 10.8 Absolute Nucleated RBC 0.000 Nucleated RBC % (auto) 0.0 Anion Gap 14 15 Estim Creat Clear Calc 38.7 39.1 Estimated GFR > 60 Random Glucose Calcium Phosphorus Magnesium Albumin Triglycerides 08/16/23 08/16/23 08/16/23 05:54 05:54 05:54 MCV MCH MCHC RDW Plt Count MPV Absolute Nucleated RBC Nucleated RBC % (auto) Anion Gap Estim Creat Clear Calc Estimated GFR > 60 Random Glucose 149 H 150 H Calcium 9.0 9.0 Phosphorus 3.1 Magnesium 2.1 Albumin 3.3 L Triglycerides 48 Assessment and Plan (1) Enteritis: Status: Acute (2) SBO (small bowel obstruction): Status: Acute Plan 87F PMH severe , CAD s/p CABG, htn, cva january 2023 - no residual deficits, mood disorder, 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, presented with abd pain Abdominal pain 2/[address] scan 08/14 showing dilated fluid filled small bowels w distal small bowels not dilated, question transition point in RLQ PPN Flagyl IV pain control didnt tolerate NG tube severe monitor closely CAD, history of cva Plavix continue statin htn amlodipine metoprolol mood disorder zoloft dvt prophylaxis - lovenox DNR/DNI reason for continued hospitalization:not tolerating po Quality Stroke Does the patient have a stroke diagnosis?: No VTE Prior VTE?: No VTE Risk Level:: Medical - moderate - high VTE Device Contraindication: Treatment Not Indicated VTE Drug Contraindication: N/A - Med Ordered
--- NOTE | 2023-08-16 10:38 | MHC.CLN ---
F/U CONTINUE PPN TODAY PT RECEIVED YESTERDAY PPN STARTING RATE AT 30 ML PER HOUR PROVIDED 367 KCALS, 72 G DEXTROSE; 31 G PROTEIN LABS REVIEWED; TRIGS WNL DISCUSSED WITH PHARMACY RECOMMEND INCREASING PPN TO 60 ML PER HOUR WITH 70G LIPIDS TO PROVIDE 1434 TOTAL KCALS (28.5KCALS/KG), 144G DEXTROSE, 61G PROTEIN (1.2G/KG) REPLETE LYTES NEEDED
[2023-08-16 15:13] VITALS: BP 149/93; PULSE 112; RESP 16; TEMP 36.4; O2SAT 93
[2023-08-16 19:20] VITALS: BP 148/81; PULSE 122; RESP 17; TEMP 36.9; O2SAT 93
[2023-08-16] MEDS: Parenteral Nutrition 1,440 ML 60 ML IV (21:04)
[2023-08-16] MEDS: 0.9 % Sodium Chloride Flush 3 ML SYRINGE IVFLUSH (21:08)
[2023-08-17 03:28] VITALS: BP 152/91; PULSE 120; TEMP 36.6; O2SAT 92
[2023-08-17 04:14] VITALS: PULSE 111
[2023-08-17] MEDS: metroNIDAZOLE/NS 500 MG/100 ML PIGGYBACK 100 MG IV ×3 (04:14→21:50)
[2023-08-17 06:24] LABS: Hematocrit 35.8 % (37.0-47.0); Hemoglobin 12.1 g/dl (12.0-16.0); Mean Corpuscular HGB Conc 33.8 g/dl (31.0-35.0); Mean Corpuscular Hemoglobin 34.4 pg (27.0-33.0); Mean Corpuscular Volume 101.7 fL (80.0-98.0); Mean Platelet Volume 10.7 fL (9.4-12.3); Platelet Count 144 X10*3/uL (160-400); Red Blood Count 3.52 X10*6/uL (4.20-5.50); Red Cell Distribution Width 14.3 % (11.0-16.0); White Blood Count 14.5 X10*3/uL (4.8-10.8)
[2023-08-17 06:38] LABS: Albumin Level 3.4 g/dL (3.5-5.0); Anion Gap 14 (12-20); Blood Urea Nitrogen 34 mg/dL (9-16); Calcium 9.2 mg/dL (8.4-10.2); Carbon Dioxide 27 mmol/L (22-29); Chloride 107 mmol/L (96-108); Creatinine Clr Calc Pharmacy 38.7; Estimated Glomerular Filt Rate > 60; Glucose Fasting 191 mg/dL (60-99); Magnesium 2.3 mg/dL (1.6-2.6); Phosphorus 3.6 mg/dL (2.7-4.5); Potassium 4.1 mmol/L (3.3-5.1); Sodium 144 mmol/L (135-145)
[2023-08-17 07:06] VITALS: BP 140/76; PULSE 92; RESP 12; TEMP 36.7; O2SAT 91
--- NOTE | 2023-08-17 07:33 | P.CDIM_ITS ---
PROVIDER RESPONSE TEXT: To clarify, the appropriate diagnosis supported by the clinical indicators: Intertrigo QUERY TEXT: PHYSICIAN'S DOCUMENTATION REQUEST Date of Query: 08/17/2023 07:27 AM EST Patient Name: Juliet Deras Admit Date: 08/09/2023 Dear Kody Graham, A review of the medical record indicates additional documentation may be needed. Please review below and update the documentation accordingly. Clinical Indicators: Per Wound Note 08/13/23: Buttocks - Intergluteal Etiology: MASD - Intertrigo (Moisture Associated Skin Damage) Measurements: 9cm x 0.3cm x 0.2cm Wound Bed: pink red moist wound bed along fold of buttocks Drainage / Odor: scant serous drainage no odor noted Edges: Linear and attached Do wound: No Induration, Fluctuance, or Warmth noted Pain: Pt denies pain Goals of Treatment: Moist wound healing and enhanced autolytic debridement with Triad - protect from friction and moisture Based on the above, could you clarify the appropriate diagnosis, if significant, that supports the ab ove abnormalities and additional evaluation, monitoring, and/or treatment rendered: Intertrigo Other skin condition, please specify Other (explain) Clinically unable to determine (explain) Thank you, Alla Diaz RN Use of terms such as suspected, likely, concern for, or probable (associated with a specific diagnosi s that is being evaluated, monitored, or treated as if it exists) are acceptable and can be coded in the inpatient se tting, when documented at the time of discharge. Please use your independent medical judgment in providing your response. THIS QUERY IS PART OF THE PERMANENT MEDICAL RECORD
--- NOTE | 2023-08-17 08:46 | PM.PNGS ---
Subjective Subjective Date of Service: 08/21/23 Interval history: complains of abdominal pain refusing NG tube Physical Exam Vital Signs: Vital Signs: Last Vital Signs Temp 98.1 F 08/17/23 07:06 Pulse 92 08/17/23 07:06 Resp 12 08/17/23 07:06 BP 140/76 H 08/17/23 07:06 Pulse Ox 91 L 08/17/23 07:06 O2 Del Method Room Air 08/17/23 07:06 BMI result Body Mass Index 19.7 Const: Other: frail looking Resp: Effort & Inspection: normal respiratory effort Cardio: Rhythm: regular rhythm GI: Other: distended, soft, some diffuse tenderness Objective Data Active Medications Amlodipine Besylate (Amlodipine Besylate 5 Mg Tablet) 5 mg PO DAILY [facility]; Protocol Last Admin: 08/16/23 08:04 Dose: Not Given Documented By: CHINA Non-Admin Reason: NPO Atorvastatin Calcium (Atorvastatin Calcium 10 Mg Tablet) 10 mg PO BEDTIME [facility] Last Admin: 08/16/23 20:59 Dose: Not Given Documented By: ARISTEO Non-Admin Reason: NPO Clopidogrel Bisulfate (Clopidogrel Bisulfate 75 Mg Tablet) 75 mg PO DAILY [facility] Last Admin: 08/14/23 09:04 Dose: 75 mg Documented By: REJI Enoxaparin Sodium (Enoxaparin Sodium 40 Mg/0.4 Ml Syringe) 40 mg SUBCUT Q24H [facility] Last Admin: 08/16/23 13:28 Dose: Not Given Documented By: CHINA Non-Admin Reason: Patient Refused Metronidazole (Flagyl) 500 mg in 100 mls @ 100 mls/hr IV Q8H [facility] Last Infusion: 08/17/23 05:20 Dose: Infused Documented By: ARISTEO Nutrition (Parenteral) (Parenteral Nutrition) 1,440 mls @ 60 mls/hr IV .Q24H [facility]; Protocol Stop: 08/17/23 20:59 Last Infusion: 08/16/23 21:26 Dose: Infused Documented By: ARISTEO Metoprolol Tartrate (Metoprolol Tartrate 50 Mg Tablet) 50 mg PO BID [facility]; Protocol Last Admin: 08/16/23 20:59 Dose: Not Given Documented By: ARISTEO Non-Admin Reason: NPO Mirtazapine (Mirtazapine 7.5 Mg Tablet) 7.5 mg PO BID [facility] Last Admin: 08/16/23 20:59 Dose: Not Given Documented By: ARISTEO Non-Admin Reason: NPO Morphine Sulfate (Morphine Sulfate 2 Mg/Ml Cartridge) 2 mg IVPUSH Q3H PRN; Protocol PRN Reason: mod pain Last Admin: 08/16/23 22:17 Dose: 2 mg Documented By: ARISTEO Multi-Ingred Medicated Throat [place] (Throat [place], Medicated 177 Ml Bottle) 1 spray MUCOUS MEM Q2H PRN PRN Reason: Throat pain Last Admin: 08/12/23 09:55 Dose: 1 spray Documented By: FE Ondansetron HCl (Ondansetron Hcl 4 Mg/2 Ml Vial) 4 mg IVPUSH Q8H PRN PRN Reason: Nausea and Vomiting Last Admin: 08/15/23 20:06 Dose: 4 mg Documented By: OBEY Pharmacy Consult (Consult Rx Parenteral Nutrition Ordering) 1 each MISCELLANE DAILY PRN PRN Reason: Consult order Sertraline HCl (Sertraline Hcl 50 Mg Tablet) 50 mg PO BID [facility] Last Admin: 08/16/23 20:59 Dose: Not Given Documented By: ARISTEO Non-Admin Reason: NPO Simethicone (Simethicone 80 Mg Tab.Chew) 80 mg PO QIDWMHS [facility] Last Admin: 08/16/23 20:59 Dose: Not Given Documented By: ARISTEO Non-Admin Reason: NPO Sodium Chloride (0.9 % Sodium Chloride Flush 3 Ml Syringe) 3 ml IVFLUSH QSHIFT [facility] Last Admin: 08/16/23 21:08 Dose: 3 ml Documented By: ARISTEO Labs 08/17/23 05:57 08/18/23 05:21 Labs: Laboratory Results - last 24 hr 08/17/23 05:57 MCV 101.7 H MCH 34.4 H MCHC 33.8 RDW 14.3 Plt Count 144 L MPV 10.7 Absolute Nucleated RBC 0.000 Nucleated RBC % (auto) 0.0 Anion Gap 14 Estim Creat Clear Calc 38.7 Estimated GFR > 60 Fasting Glucose 191 H Calcium 9.2 Phosphorus 3.6 Magnesium 2.3 Albumin 3.4 L Procedures Date of Service Date of Service: 08/21/23 Progress Note: A&P Assessment and plan (1) SBO (small bowel obstruction): Status: Acute Assessment and Plan: refusing NG tube placement does not want any invasive intervention son J Carlos at bedside - he wanted to talk to case technician regarding options of alternate level of care discussed with case technician pain management Time Spent With Patient Time: Total time managing care of this patient today ____ minutes. Quality Stroke Does the patient have a stroke diagnosis?: No VTE Prior VTE?: No VTE Risk Level:: Medical - moderate - high VTE Device Contraindication: Treatment Not Indicated VTE Drug Contraindication: N/A - Med Ordered
[2023-08-17] MEDS: Morphine Sulfate 2 MG/ML CARTRIDGE IVPUSH ×3 (09:06→18:27)
[2023-08-17] MEDS: 0.9 % Sodium Chloride Flush 3 ML SYRINGE IVFLUSH ×3 (09:07→21:50)
[2023-08-17] MEDS: ondansetron HCL 4 MG/2 ML VIAL IVPUSH ×2 (10:20→18:27)
--- NOTE | 2023-08-17 10:20 | MHC.CLN ---
F/U CONTINUE PPN TODAY LABS REVIEWED; TRIGS WNL DISCUSSED WITH PHARMACY CONTINUE PPN AT MAX GOAL RATE: PPN AT 60 ML PER HOUR WITH 70G LIPIDS TO PROVIDE 1434 TOTAL KCALS (28.5KCALS/KG), 144G DEXTROSE, 61G PROTEIN (1.2G/KG) REPLETE LYTES NEEDED. FOLLOW FOR PPN TOLERANCE AND DIET ADVANCEMENT.
--- NOTE | 2023-08-17 10:44 | P.PNIM_ITS ---
Subjective Subjective Date of Service: 08/17/23 Interval History: still refusing ngt Physical Exam 2 Vital Signs: Vital Signs: Last Vital Signs Temp 98.1 F 08/17/23 07:06 Pulse 92 08/17/23 07:06 Resp 12 08/17/23 07:06 BP 140/76 H 08/17/23 07:06 Pulse Ox 91 L 08/17/23 07:06 O2 Del Method Room Air 08/17/23 07:06 BMI result Body Mass Index 19.7 Const: Other: frail looking Resp: Effort & Inspection: normal respiratory effort Cardio: Rhythm: regular rhythm GI: Other: distended, soft, some diffuse tenderness Objective Data Active Medications Amlodipine Besylate (Amlodipine Besylate 5 Mg Tablet) 5 mg PO DAILY [facility]; Protocol Last Admin: 08/17/23 10:22 Dose: Not Given Documented By: JUANI Non-Admin Reason: Patient Condition Contraindication Atorvastatin Calcium (Atorvastatin Calcium 10 Mg Tablet) 10 mg PO BEDTIME [facility] Last Admin: 08/16/23 20:59 Dose: Not Given Documented By: ARISTEO Non-Admin Reason: NPO Clopidogrel Bisulfate (Clopidogrel Bisulfate 75 Mg Tablet) 75 mg PO DAILY [facility] Last Admin: 08/14/23 09:04 Dose: 75 mg Documented By: REJI Enoxaparin Sodium (Enoxaparin Sodium 40 Mg/0.4 Ml Syringe) 40 mg SUBCUT Q24H [facility] Last Admin: 08/16/23 13:28 Dose: Not Given Documented By: CHINA Non-Admin Reason: Patient Refused Metronidazole (Flagyl) 500 mg in 100 mls @ 100 mls/hr IV Q8H [facility] Last Infusion: 08/17/23 05:20 Dose: Infused Documented By: ARISTEO Nutrition (Parenteral) (Parenteral Nutrition) 1,440 mls @ 60 mls/hr IV .Q24H [facility]; Protocol Stop: 08/17/23 20:59 Last Infusion: 08/16/23 21:26 Dose: Infused Documented By: ARISTEO Metoprolol Tartrate (Metoprolol Tartrate 50 Mg Tablet) 50 mg PO BID [facility]; Protocol Last Admin: 08/17/23 10:23 Dose: Not Given Documented By: JUANI Non-Admin Reason: Patient Condition Contraindication Mirtazapine (Mirtazapine 7.5 Mg Tablet) 7.5 mg PO BID [facility] Last Admin: 08/17/23 10:23 Dose: Not Given Documented By: JUANI Non-Admin Reason: Patient Condition Contraindication Morphine Sulfate (Morphine Sulfate 2 Mg/Ml Cartridge) 2 mg IVPUSH Q3H PRN; Protocol PRN Reason: mod pain Last Admin: 08/17/23 09:06 Dose: 2 mg Documented By: JUANI Multi-Ingred Medicated Throat [place] (Throat [place], Medicated 177 Ml Bottle) 1 spray MUCOUS MEM Q2H PRN PRN Reason: Throat pain Last Admin: 08/12/23 09:55 Dose: 1 spray Documented By: FE Ondansetron HCl (Ondansetron Hcl 4 Mg/2 Ml Vial) 4 mg IVPUSH Q8H PRN PRN Reason: Nausea and Vomiting Last Admin: 08/17/23 10:20 Dose: 4 mg Documented By: JUANI Pharmacy Consult (Consult Rx Parenteral Nutrition Ordering) 1 each MISCELLANE DAILY PRN PRN Reason: Consult order Sertraline HCl (Sertraline Hcl 50 Mg Tablet) 50 mg PO BID [facility] Last Admin: 08/16/23 20:59 Dose: Not Given Documented By: ARISTEO Non-Admin Reason: NPO Simethicone (Simethicone 80 Mg Tab.Chew) 80 mg PO QIDWMHS [facility] Last Admin: 08/17/23 10:22 Dose: Not Given Documented By: JUANI Non-Admin Reason: Patient Condition Contraindication Sodium Chloride (0.9 % Sodium Chloride Flush 3 Ml Syringe) 3 ml IVFLUSH QSHIFT [facility] Last Admin: 08/17/23 09:07 Dose: 3 ml Documented By: JUANI Labs 08/17/23 05:57 08/17/23 05:57 Labs: Laboratory Results - last 24 hr 08/17/23 05:57 MCV 101.7 H MCH 34.4 H MCHC 33.8 RDW 14.3 Plt Count 144 L MPV 10.7 Absolute Nucleated RBC 0.000 Nucleated RBC % (auto) 0.0 Anion Gap 14 Estim Creat Clear Calc 38.7 Estimated GFR > 60 Fasting Glucose 191 H Calcium 9.2 Phosphorus 3.6 Magnesium 2.3 Albumin 3.4 L Assessment and Plan (1) Enteritis: Status: Acute (2) SBO (small bowel obstruction): Status: Acute Plan 87F PMH severe , CAD s/p CABG, htn, cva january 2023 - no residual deficits, mood disorder, 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, presented with abd pain Abdominal pain / SBO CT scan 08/14 showing dilated fluid filled small bowels w distal small bowels not dilated, question transition point in RLQ PPN Flagyl IV pain control didnt tolerate NG tube, not interested in retrying hospice informational planned severe monitor closely CAD, history of cva Plavix continue statin htn amlodipine metoprolol mood disorder zoloft dvt prophylaxis - lovenox DNR/DNI reason for continued hospitalization:not tolerating po Quality Stroke Does the patient have a stroke diagnosis?: No VTE Prior VTE?: No VTE Risk Level:: Medical - moderate - high VTE Device Contraindication: Treatment Not Indicated VTE Drug Contraindication: N/A - Med Ordered
[2023-08-17] MEDS: Sertraline HCL 50 MG TABLET PO (11:09)
--- NOTE | 2023-08-17 11:58 | MHC.CM.PN ---
Addendum entered by Fabiana Shea 08/17/23 16:23: Spoke with son J Carlos this afternoon. The Hospice meeting went well. The Liason will follow up with J Carlos. He had questions; which the liason needed to look into. Prices for Room+ board, [facility] and [facility] prices were provided. Likely discharge will be to home with [facility], EC and some private help. Patient will transport via BLS @ discharge. Original Note: Patient with Bowel Obstruction declines further treatment. Dr Plaza requests a Hospice informational meeting.Met with pt and her son, J Carlos. Hospice preference obtained [facility] is the patients choice. The referral was sent and patient is accepted. The agency will call J Carlos to schedule an informational meeting. The patient does not have a secondary payor. Room+ board SNF prices provided. [facility] was contacted for pricing as well. Home health for hospice in the home were obtained from [facility]. CHAN will follow up with Phill this afternoon. DP likely Hospice @ home with [facility]. Patient will transport via BLS.
[2023-08-17 16:00] VITALS: BP 122/76; PULSE 107; RESP 18; TEMP 36.8; O2SAT 90
[2023-08-17 20:00] VITALS: BP 98/72; PULSE 118; RESP 18; TEMP 36.6; O2SAT 97
[2023-08-17] MEDS: Parenteral Nutrition 1,440 ML 60 ML IV (21:50)
[2023-08-17 22:12] VITALS: BP 98/72; PULSE 122; RESP 22; TEMP 36.2; O2SAT 93
--- NOTE | 2023-08-17 22:57 | PC.NURSE ---
2000 VITALS 02 SATS LOW 80'S ON ROOM AIR, 02 AT 2L APPLIED SATS REMAINED IN THE 80'S.02 INCREASED TO 4L SATS 95%.HEART RATE JUMPING FROM LOW 100'S TO 130'S, B/P 98/72 MANUALLY.LUNGS WITH SOME CRACKLES. NOTIFIED.WILL CONTINUE TO MONITOR.
[2023-08-18 03:51] VITALS: BP 110/60; PULSE 116; RESP 18; TEMP 36.5; O2SAT 93
[2023-08-18] MEDS: Morphine Sulfate 2 MG/ML CARTRIDGE IVPUSH ×4 (04:13→18:28)
[2023-08-18] MEDS: metroNIDAZOLE/NS 500 MG/100 ML PIGGYBACK 100 MG IV ×2 (04:14→14:57)
[2023-08-18] MEDS: ondansetron HCL 4 MG/2 ML VIAL IVPUSH ×2 (05:33→15:06)
[2023-08-18 06:21] LABS: Albumin Level 3.2 g/dL (3.5-5.0); Anion Gap 18 (12-20); Blood Urea Nitrogen 49 mg/dL (9-16); Calcium 9.5 mg/dL (8.4-10.2); Carbon Dioxide 25 mmol/L (22-29); Chloride 106 mmol/L (96-108); Creatinine Clr Calc Pharmacy 26.6; Estimated Glomerular Filt Rate 44; Glucose Random 188 mg/dL (60-115); Magnesium 2.5 mg/dL (1.6-2.6); Phosphorus 4.6 mg/dL (2.7-4.5); Potassium 5.1 mmol/L (3.3-5.1); Sodium 144 mmol/L (135-145)
[2023-08-18 07:55] VITALS: BP 145/65; PULSE 126; RESP 20; TEMP 37; O2SAT 88
[2023-08-18 08:15] VITALS: PULSE 117; O2SAT 91
--- NOTE | 2023-08-18 10:08 | HO.PM.IMPN ---
Subjective Subjective Date of Service: 08/18/23 Interval History: still refusing ngt Physical Exam Vital Signs: Vital Signs: Last Vital Signs Temp 98.6 F 08/18/23 07:55 Pulse 117 H 08/18/23 08:15 Resp 20 08/18/23 07:55 BP 145/65 H 08/18/23 07:55 Pulse Ox 91 L 08/18/23 08:15 O2 Del Method Nasal Cannula 08/18/23 08:15 O2 Flow Rate 5 08/18/23 08:15 BMI result Body Mass Index 19.7 Const: Other: frail looking Resp: Effort & Inspection: normal respiratory effort Cardio: Rhythm: regular rhythm GI: Other: distended, soft, some diffuse tenderness Objective Data Active Medications Amlodipine Besylate (Amlodipine Besylate 5 Mg Tablet) 5 mg PO DAILY [facility]; Protocol Last Admin: 08/18/23 08:20 Dose: Not Given Documented By: KATHLEEN Non-Admin Reason: Patient Condition Contraindication Atorvastatin Calcium (Atorvastatin Calcium 10 Mg Tablet) 10 mg PO BEDTIME [facility] Last Admin: 08/17/23 22:22 Dose: Not Given Documented By: AARON Non-Admin Reason: NPO Clopidogrel Bisulfate (Clopidogrel Bisulfate 75 Mg Tablet) 75 mg PO DAILY [facility] Last Admin: 08/14/23 09:04 Dose: 75 mg Documented By: REJI Enoxaparin Sodium (Enoxaparin Sodium 30 Mg/0.3 Ml Syringe) 30 mg SUBCUT Q24H [facility] Metronidazole (Flagyl) 500 mg in 100 mls @ 100 mls/hr IV Q8H [facility] Last Infusion: 08/18/23 05:18 Dose: Infused Documented By: AARON Nutrition (Parenteral) (Parenteral Nutrition) 1,440 mls @ 60 mls/hr IV .Q24H [facility]; Protocol Stop: 08/18/23 20:59 Last Admin: 08/17/23 21:50 Dose: 60 mls/hr Documented By: AARON Nutrition (Parenteral) (Parenteral Nutrition) 1,440 mls @ 60 mls/hr IV .Q24H [facility]; Protocol Stop: 08/19/23 20:59 Metoprolol Tartrate (Metoprolol Tartrate 50 Mg Tablet) 50 mg PO BID [facility]; Protocol Last Admin: 08/18/23 08:20 Dose: Not Given Documented By: KATHLEEN Non-Admin Reason: Patient Condition Contraindication Mirtazapine (Mirtazapine 7.5 Mg Tablet) 7.5 mg PO BID [facility] Last Admin: 08/18/23 08:21 Dose: Not Given Documented By: KATHLEEN Non-Admin Reason: Patient Condition Contraindication Morphine Sulfate (Morphine Sulfate 2 Mg/Ml Cartridge) 2 mg IVPUSH Q3H PRN; Protocol PRN Reason: mod pain Last Admin: 08/18/23 04:13 Dose: 2 mg Documented By: AARON Multi-Ingred Medicated Throat [place] (Throat [place], Medicated 177 Ml Bottle) 1 spray MUCOUS MEM Q2H PRN PRN Reason: Throat pain Last Admin: 08/12/23 09:55 Dose: 1 spray Documented By: FE Ondansetron HCl (Ondansetron Hcl 4 Mg/2 Ml Vial) 4 mg IVPUSH Q8H PRN PRN Reason: Nausea and Vomiting Last Admin: 08/18/23 05:33 Dose: 4 mg Documented By: AARON Pharmacy Consult (Consult Rx Parenteral Nutrition Ordering) 1 each MISCELLANE DAILY PRN PRN Reason: Consult order Sertraline HCl (Sertraline Hcl 50 Mg Tablet) 50 mg PO BID [facility] Last Admin: 08/18/23 08:21 Dose: Not Given Documented By: KATHLEEN Non-Admin Reason: Patient Condition Contraindication Simethicone (Simethicone 80 Mg Tab.Chew) 80 mg PO QIDWMHS [facility] Last Admin: 08/18/23 08:20 Dose: Not Given Documented By: KATHLEEN Non-Admin Reason: Patient Condition Contraindication Sodium Chloride (0.9 % Sodium Chloride Flush 3 Ml Syringe) 3 ml IVFLUSH QSHIFT [facility] Last Admin: 08/17/23 21:50 Dose: 3 ml Documented By: AARON Labs 08/17/23 05:57 08/18/23 05:21 Labs: Laboratory Results - last 24 hr 08/18/23 05:21 Hold Purple Top SEE NOTE Anion Gap 18 Estim Creat Clear Calc 26.6 Estimated GFR 44 Random Glucose 188 H Calcium 9.5 Phosphorus 4.6 H Magnesium 2.5 Albumin 3.2 L Assessment and Plan (1) Enteritis: Status: Acute (2) SBO (small bowel obstruction): Status: Acute Plan 87F PMH severe , CAD s/p CABG, htn, cva january 2023 - no residual deficits, mood disorder, 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, presented with abd pain Abdominal pain 2/[address] scan 08/14 showing dilated fluid filled small bowels w distal small bowels not dilated, question transition point in RLQ PPN Flagyl IV pain control didnt tolerate NG tube, not interested in retrying plan for home hospice for now acute hypoxic repsiratory failure likely aspiration pneumonitis due to above o2 supplement severe monitor closely CAD, history of cva Plavix continue statin htn amlodipine metoprolol mood disorder zoloft dvt prophylaxis - lovenox DNR/DNI reason for continued hospitalization:not tolerating po Quality Stroke Does the patient have a stroke diagnosis?: No VTE Prior VTE?: No VTE Risk Level:: Medical - moderate - high VTE Device Contraindication: Treatment Not Indicated VTE Drug Contraindication: N/A - Med Ordered
[2023-08-18] MEDS: 0.9 % Sodium Chloride Flush 3 ML SYRINGE IVFLUSH (15:07)
[2023-08-18 15:12] VITALS: BP 125/80; PULSE 126; RESP 21; TEMP 37; O2SAT 85
--- NOTE | 2023-08-18 15:20 | P.ACPN_ITS ---
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 Problems Discussed (1) Enteritis: (2) SBO (small bowel obstruction):
[2023-08-18] MEDS: Scopolamine 1.5 MG PATCH.TD.3 EAR-BEHIND (15:30)
[2023-08-18] MEDS: LORazepam 2 MG/ML VIAL IVPUSH (16:31)
--- NOTE | 2023-08-18 20:54 | PC.NURSE ---
1950 when i went into pt's room to assess pt pt had .,chemical lab supervisor and pt's son notified.pt's son will be coming in to see pt and get her belongings.pt's son will let me know the name of home after he speaks with his siblings.[employer] notified and pt was declined.
--- NOTE | 2023-08-18 20:58 | P.EN_ITS ---
Event Note Date of Service: 08/18/23 Event Note: Note Called to pronounce patient 87 year old WF here with SBP Made SALESFORCE DEVELOPER julia today Found patient lying supine in bed. She is unresponsive to both verbal and painful stimuli No breath sounds or heart sounds were auscultated Her pupils are dilated and not responsive to direct light Patient pronounced at 8:00 PM on August 18 2023 Called and informed patients son J Carlos Deras ([phone]) of her . Time Spent With Patient Time: Total time managing care of this patient today _15___ minutes.
--- NOTE | 2023-08-18 21:40 | PC.NURSE ---
pt's son sanjay came to see pt and took her clothes and dentures.he will let us know which home they are going with tomorrow.
--- NOTE | 2023-08-19 06:55 | P.DN_ITS ---
Discharge Sum: Prov Provider Primary care physician: Reva Fraga CNP Consults: 08/08/23 22:17 Consult to General Surgery Routine Consulting Provider: [facility] [place] [facility] Surgeons Reason for consultation: sbo 08/11/23 15:35 Consult to Wound Care Routine Reason for consultation: blister to L heel- foam dsg intact Discharge Sum: Diag Contributing Factors (1) Enteritis: (2) SBO (small bowel obstruction): Discharge Sum: Summary Date and Time Date of admission: 08/08/23 22:18 Date of : 08/18/23 Summary Details: from initial hpi: 87F PMH severe , CAD s/p CABG, htn, cva january 2023 - no residual deficits, mood disorder, 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 presented with abd pain for one day. patient was feeling well AM of admission, after breakfast started to have severe abd pain. denies nausea or vomiting, in ED CT showed SBO vs enteritis. NGT placed with significant relief. hospital course: patient was admitted for small bowel obstruction. treated conservatively with ppn, ivf, npo. initially had NG tube, however, patient was unable to tolerate it. she decided not to have any more placement attemtps, was not interested in surgery. patient continued to decline and decision made to transition to CAMPUS SAFETY OFFICER. patient on 08/18/23. her course had been complicated by acute hypoxic respiratory failure due to aspiration pneumonitis, severe aortic stenosis, history of CAD, CVA, hypertension, mood disorder. Additional Data Attending physician: Kody Graham MD
== END 2023-08-18 23:30 | disposition expired | DRG 388 ==
LOC: HO.ED 22:04 → HO.EDOVER 22:22 → HO.S3 23:31
PROVIDERS: Student in an Organized Health Care Education/Training Program; Admitting Provider Internal Medicine; Emergency Provider Emergency Medicine; PCP Nurse Practitioner Family; Visit Provider Internal Medicine
DX: K56.51 Intestinal adhesions [bands], with partial obstruction (principal); J69.0 Pneumonitis due to inhalation of food and vomit; J96.01 Acute respiratory failure with hypoxia; Z68.1 Body mass index [BMI] 19.9 or less, adult; K52.9 Noninfective gastroenteritis and colitis, unspecified; I25.10 Atherosclerotic heart disease of native coronary artery without angina pectoris; Z51.5 Encounter for palliative care; E87.6 Hypokalemia; Z66 Do not resuscitate; R63.6 Underweight; L30.4 Erythema intertrigo; Z95.1 Presence of aortocoronary bypass graft; I10 Essential (primary) hypertension; D46.9 Myelodysplastic syndrome, unspecified; I35.0 Nonrheumatic aortic (valve) stenosis; Z86.73 Personal history of transient ischemic attack (TIA), and cerebral infarction without residual deficits; Z79.02 Long term (current) use of antithrombotics/antiplatelets; Z79.899 Other long term (current) drug therapy
CPT/HCPCS: 36415; 71045; 74018; 74177; 80048; 80076; 81003; 82040; 82803; 83605; 83690; 83735; 84100; 84478; 84484; 85025; 85027; 86140; 93005; 97161; 99285; C9113; J1200; J1650; J1836; J2060; J2270; J2405; J3480; J7120; Q9967

== ENCOUNTER → 2023-08-08 22:18 | Outpatient (BNV) | payer MEDICARE, SELFPAY | PROVIDERS: Admitting Provider Internal Medicine; Emergency Provider Emergency Medicine; PCP Nurse Practitioner Family; Visit Provider Internal Medicine | DX: K52.9 Noninfective gastroenteritis and colitis, unspecified (principal); K56.609 Unspecified intestinal obstruction, unspecified as to partial versus complete obstruction | CPT/HCPCS: 99223; 99232; 99233; 99238; 99497; 99499 ==

== ENCOUNTER → 2023-08-08 22:18 | Outpatient (BNV) | payer MEDICARE, SELFPAY | PROVIDERS: Admitting Provider Internal Medicine; Emergency Provider Emergency Medicine; PCP Nurse Practitioner Family; Visit Provider Surgery | DX: K56.609 Unspecified intestinal obstruction, unspecified as to partial versus complete obstruction (principal) | CPT/HCPCS: 99222; 99232; 99499 ==